=== PATIENT | female | born 1960 | race Caucasian/White ===

== ENCOUNTER → 2017-01-25 | Outpatient (CLI) | payer OTHER ==
[~2017-01-25] MED LIST: ALEVE220 MG PO; ASPIRIN LO-DOSE81 MG PO; CARDIZEM SR120 MG PO; COLACE100 MG PO; COZAAR50 MG PO; DILAUDID 2MG(HYD2 MG PO; DRISDOL 5050000 UNIT PO; FARXIGA10 MG PO; FLONASE 50 MCG/16 GM NOSE; GLUCAGON 1 MG PE1 MG SUB-Q; GLUCOPHAGE1000 MG PO; GLUCOSE4 GM PO; LEVEMIR FL100 UNIT/1 SUB-Q; LIDODERM1 EACH TRANS; LOPRESSOR25 MG PO; LOVENOX 6060 MG/0.6 SUB-Q; MEKINIST2 MG PO; MILK OF MA400 MG/5 M PO; MIRALAX17 GM PO; NORCO 5-325 TA1 EACH PO; NOVOLOG FL100 UNIT/1 SUB-Q; NYSTATIN100000 UNI PO; PROAMATINE5 MG PO; TAFINLAR75 MG PO; TESSALON PERLE100 MG PO; TOUJEO SOL300 UNIT/1 SUB-Q; TUMS REGULAR ST1 TAB PO; TYLENOL EXTRA500 MG PO; ULTRAM50 MG PO; VENTOLIN HFA18 GM INH; VICTOZA 3-0.6 MG/0.1 SUB-Q; VITAMIN D1000 UNIT PO; VITAMIN D10000 UNIT PO; XANAX0.25 M1 PO; XARELTO15 MG PO; ZANTAC300 MG PO; ZOCOR10 MG PO; ZOFRAN4 MG PO; ZYRTEC10 MG PO
== END | disposition disaster alternative care site (69) ==
LOC: LFPA 09:13
DX: E86.0 Dehydration (principal)

== ENCOUNTER 2017-02-05 17:00 | Inpatient (IN) | payer OTHER ==
[~2017-02-05] VITALS: Ht 160 cm; Wt 65.2 kg
--- NOTE | ~2017-02-05 | CON ---
PATIENT'S NAME: ILEANA JHAVERI [facility] AGE: 56 Y [address] ROOM: G3221 [place] [address] LOCATION: [facility] [place] ADMIT DATE: 02/05/2017 Consultation DISCHARGE DATE: FAMILY PHYSICIAN: ARTEM BELCHER MD ATTENDING PHYSICIAN: ORACIO BYNUM REFERRING PHYSICIAN: Dacia Orozco MD I was asked to evaluate the patient with imaging consistent with metastatic disease. HISTORY OF PRESENT ILLNESS: Ileana Jhaveri is a 56-year-old female, admitted on 02/05/2017 for further evaluation of a cough that has been going on for the last couple of months. It has been progressively getting worse. She has been feeling weaker and weaker and fatigued. She has had episodes with significant cough causing gag reflex at times and over the same course of time, she knows that she has lost 40 pounds. Her appetite is low and she generally does not feel well. She was admitted to the [facility] on 02/05/2017 and evaluation has included CT scan of the chest, abdomen, and pelvis, which was performed on 02/06/2017, which was remarkable for pulmonary embolism, it did not demonstrate that; however, it did show findings consistent with significant metastatic disease to the right cervical nodes, thoracic inlet, mediastinum, right lung base, liver, and periportal area. Additionally, there is a compound fracture of the upper thoracic vertebrae noted. As she has been on aspirin, a CT-guided biopsy of the liver was unable to be performed and plans are underway for radiologic-guided biopsy of the right cervical nodes, which will take place tomorrow. Currently, the patient states she is doing quite a bit better after being in the hospital a couple days. Cough persists, however, tolerable. Pain is located in the left arm at times. This comes and goes, sometimes it is quite bothersome. Otherwise, she feels she has chronic low back pain and knee pain that she does not feel is unusual. PAST MEDICAL HISTORY: Diabetes; hypertension; asthma; allergies; gastroesophageal reflux disease; history of melanoma, status post resection from the upper thorax followed by bilateral axillary sentinel lymph node biopsies in 1988, staging evaluation was not available on this. SOCIAL HISTORY: The patient lives in [place]. Does not drink, does not smoke, and does not do illicit drugs. 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 FAMILY HISTORY: PATIENT'S NAME: ILEANA JHAVERI [facility] AGE: 56 Y [address] ROOM: G[address]21 [place], [place] [address] LOCATION: [facility] [place] ADMIT DATE: 02/05/2017 Consultation DISCHARGE DATE: FAMILY PHYSICIAN: ARTEM BELCHER MD ATTENDING PHYSICIAN: ORACIO BYNUM The patient has a family history of diabetes and heart disease. MEDICATIONS: Please review the MAR. PHYSICAL EXAMINATION: VITAL SIGNS: Blood pressure 113/56, pulse 120, respirations 18, and temperature 98.4. GENERAL: The patient appears comfortable, in no apparent distress, sitting, eating supper with her significant other present. HEENT: Pupils are equal, round, and reactive to light. Extraocular muscles are intact. Oral mucosa moist and pink without erythema and without lesions. NECK: She is noted to have right supraclavicular adenopathy of 2 cm. No other cervical nodes are noted and no axillary nodes are noted. HEART: Regular rate and rhythm without murmurs or rubs or gallops. LUNGS: Clear to auscultation bilaterally without wheezing, without rhonchi. ABDOMEN: Bowel sounds positive. Nontender. Nondistended. No hepatosplenomegaly or masses appreciated. EXTREMITIES: Without cyanosis, clubbing, or edema. No significant bruising. LABORATORY DATA: CBC with a white blood cell count of 9, hemoglobin of 11, and platelets 288. Electrolytes were normal with a BUN and creatinine of 9 and 0.4 respectively. Albumin was 2.6, globulin 5.2, total bilirubin 0.4, alkaline phosphatase 166, AST of 19, and ALT of 23. Radiologic review included the CT as mentioned above. IMPRESSION AND PLAN: Ileana Jhaveri is a 56-year-old female with a history of melanoma, status post resection of sentinel node biopsies in 1998, now with findings concerning for metastatic disease diffusely; presenting with chronic cough, weight loss, weakness, and fatigue. She is scheduled for a CT of her image-guided biopsy tomorrow of the cervical nodes as the findings are very concerning and convincing for metastatic disease, very likely melanoma given her previous history, I will start obtaining an MRI of the brain to help completely stage her. Consideration in the future may include a bone scan as well as the patient does describe some left arm pain. Provided the patient is stable and able to be discharged, I will plan on following her up as an outpatient and review of pathology and discussion of treatment options based upon those results. If she has a prolonged stay for any reason, we will follow as an inpatient and provide further recommendations as they become apparent. PATIENT'S NAME: ILEANA JHAVERI [facility] AGE: 56 Y [address] ROOM: [place] [address] LOCATION: [facility] [place] ADMIT DATE: 02/05/2017 Consultation DISCHARGE DATE: FAMILY PHYSICIAN: ARTEM BELCHER MD ATTENDING PHYSICIAN: ORACIO BYNUM MD NJH/ricci /[id number] d: 02/08/17 0139 t: 03/03/17 1103, CONSULTATION REPORT
--- NOTE | ~2017-02-05 | ECHO ---
Transthoracic Echocardiography Report (TTE) Demographics Patient Name ILEANA JHAVERI Date of Study 02/06/2017 Patient Number [id number] Visit Number [id number] Date of 1960 Room Number G3221 Gender Female Number Age 56 year(s) Referring Gui Eaton MD Division Traffic Superintendent Fernanda Madrid, Physician RT,RVT,RDCS Physician Interpreting Bobby [employer] Conservation Representative Physician A Supervising Ordering Gui Eaton MD, MD/MLP Physician Nurse Stress [employer] Associate Conclusions Contractility Score Summary Normal Left Ventricular contractility was noted. Summary The estimated left ventricular ejection fraction is 60%. Pleural effusion present. Procedure Type of Study TTE procedure:2D Echocardiogram, M-Mode, Doppler , Color Doppler. Procedure Date Date: 02/06/2017 Start: 02:08 PM Study Location: Inpatient Portable Technical Quality: Adequate visualization Indications:Arrhythmia. Additional Indications:Atypical pneumonia. Appropriate Use Criteria: 9 Patient Status: Routine HR: 103 bpm BP: 113/60 mmHg M-Mode/2D Measurements LV Diastolic Dimension: 3.93 cm LV Systolic Dimension: 2.88 cm LV Septum Diastolic: 0.91 cm LV PW Diastolic: 1.01 cm AO Root Dimension: 2.9 cm Cardiac Output: 5.28 l/min AV Cusp Separation: 2 cm LVOT: 1.9 cm MV EPSS: 0.4 cm LVOT VTI: 18.1 cm LV Stroke volume: 51.29 ml Doppler Measurements AV Peak Velocity: 1.05 m/s MV Peak E-Wave: 0.67 m/s AV Peak Gradient: 4.41 mmHg MV Peak A-Wave: 0.73 m/s AV Mean Gradient: 2 mmHg MV E/A Ratio: 0.92 LVOT Peak Velocity: 0.99 m/s MV P1/2t: 52 msec TR Gradient:20.79 mmHg PV Peak Velocity: 0.94 m/s Estimated RAP:10 mmHg PV Peak Gradient: 3.51 mmHg Estimated RVSP: 31 mmHg Estimated PASP: 30.79 mmHg E' Septal Velocity: 0.07 m/s A' Septal Velocity: 0.09 m/s MV E/E' Ratio: 9.2 Findings Left Ventricle Normal left ventricle size and function. Right Ventricle Mildly dilated right ventricle. Normal right ventricular systolic performance. Left Atrium Normal left atrial size. Right Atrium Normal right atrial size. Mitral Valve Trivial mitral regurgitation by color Doppler. Tricuspid Valve Trivial tricuspid regurgitation by color Doppler. Pulmonic Valve Normal pulmonic valve structure and function. Pericardial Effusion No evidence of pericardial effusion. Miscellaneous Visualized portions of the aortic root and ascending aorta appear normal in size. Pleural Effusion Pleural effusion present. Contractility Score LV regional wall motion:(0-Non visualized 1-Normal 2-Hypokinesis 3-Akinesis 4-Dyskinesis 5-Aneurysm) Signature dtt: Honey Rosales dtd: 02/06/17 9444 Physician Self Edit
--- NOTE | ~2017-02-05 | DS ---
PATIENT'S NAME: ILEANA JHAVERI [facility] AGE: 56 Y [address] ROOM: [address] [place] [id number] LOCATION: [facility] [place] ADMIT DATE: 02/05/2017 Discharge Summary DISCHARGE DATE: 02/10/2017 FAMILY PHYSICIAN: Owen Pathak MD ATTENDING PHYSICIAN: Joe Gold ATTENDING PHYSICIAN: Yony Russo MD FINAL DIAGNOSES: 1. Metastatic melanoma. 2. Sinus tachycardia, resolved. 3. Diabetes mellitus. 4. Metastatic liver disease. 5. Right lung mass. 6. History of malignant melanoma. 7. Atypical pneumonia. 8. Moderate protein-calorie malnutrition. CONSULTATIONS: Hematology/Oncology, Dr. De Souza. PROCEDURES: Right cervical lymph node biopsy by Dr. Rowan. REASON FOR ADMISSION: This is a 56-year-old female who was transferred from Dr. Sen's office for a history of cough and repeated infections. The patient was evaluated in the ER and then further admitted to [facility]. Please see Dr. Gold's admission H and P for further details. DIAGNOSTIC STUDIES: The patient had tachycardia. A transthoracic echocardiogram was done and showed normal left ventricular contractility with ejection fraction of 60%. Pleural effusion was present. Serial Accu-Cheks were done and were in the range of 185 to 337. Cardiac enzymes were done. CPK was normal. Troponin I less than 0.04 x4. Serial CBCs were done and showed normal white count, hemoglobin, hematocrit, and platelet levels. BMP showed normal electrolytes and kidney function tests. Alkaline phosphatase was elevated at 166. Liver enzymes were normal. Hemoglobin A1c 9.4. PT/INR and PTT normal. Pre-albumin 7. Amylase 23, lipase 141. D-dimer elevated at 11.47. Chest x-ray was done on the day of admission for persistent cough and showed no acute process. A CT chest, abdomen, and pelvis with contrast was done to rule out PE and for history of weight loss. No evidence of pulmonary embolic disease was noted. Extensive neoplastic disease including the lower right neck, thoracic inlet, mediastinum, right lung base, liver, and periportal region was noted. Mild to moderate compression deformity involving the upper thoracic spine was detected. MRI brain with and without contrast was done to stage metastatic PATIENT'S NAME: ILEANA JHAVERI [facility] AGE: 56 Y [address] ROOM: [address] [address] LOCATION: [facility] [place] ADMIT DATE: 02/05/2017 Discharge Summary DISCHARGE DATE: 02/10/2017 FAMILY PHYSICIAN: Owen Pathak MD ATTENDING PHYSICIAN: Joe Gold and showed both essentially normal with no evidence of metastatic disease. On the day of discharge, a bone scan was done and official read is pending at this point of time. Legionella antigen in urine was negative. HOSPITAL COURSE: This is a 56-year-old female who presented with persistent cough. The patient was evaluated in clinic and then further transferred to [facility]. The patient was found to be tachycardic and also reported a 40-pound weight loss during this admission. D-dimer was done for tachycardia. She was initially placed on Levaquin for presumed atypical pneumonia. This was continued and finished, the patient finished her course of antibiotics. The patient underwent a CT chest, abdomen, and pelvis that showed that the patient had metastatic disease with mets to the lung, liver, and lymph nodes. She has a history of malignant melanoma in the past about 20 years ago. Hematology/Oncology consult was obtained for the patient. The patient was scheduled to undergo a liver biopsy, but she was receiving aspirin; hence, the liver biopsy could not be accomplished. The patient then underwent an ultrasound-guided right-sided lymph node biopsy. Pathology of the right-sided lymph node biopsy showed that the patient has metastatic melanoma. The Hematology/Oncology will follow up with the patient outpatient. The patient had sinus tachycardia during this admission as seen on EKG. Initially, she was on beta-tamra. This was later transitioned to calcium channel tamra, she was placed on Cardizem. By the time of discharge, the patient's heart rate was in the 90s with p.o. Cardizem. Her blood pressure was stable. She was ambulating with the help of a walker. She also had right- sided shoulder pain. To rule out bone mets, a bone scan was done and official read is pending. Later bone scan result revealed extensive osseous metastatic disease. The patient will follow up with her primary care physician, Dr. Pathak and Dr. De Souza for further recommendations of her metastatic disease. The patient continued to do well. She was tolerating p.o. She was ambulating with the help of a walker. She continued to do well and was discharged and asked to follow up with her primary care physician. DISCHARGE INSTRUCTIONS: The patient discharged on 1800-kilocalorie ADA diet. Activity is as tolerated. Use a walker for assistance. Follow up with Dr. Pathak on February 16, 2017. Follow up with pathology from biopsy report. Follow up with Dr. De Souza and Dr. Hartman at [facility] on february 20. PCP to check a CBC and a CMP. Regular BP check advised. PCP to follow biopsy result and bone scan result. Follow up with Hematology/Oncology. Accu-Cheks before meals and at bedtime. Advised to call PCP if blood sugar more than or equal to 400 on 2 occasions. PATIENT'S NAME: ILEANA JHAVERI [facility] AGE: 56 Y [address] ROOM: [place] [address] LOCATION: [facility] [place] ADMIT DATE: 02/05/2017 Discharge Summary DISCHARGE DATE: 02/10/2017 FAMILY PHYSICIAN: Owen Pathak MD ATTENDING PHYSICIAN: Joe Gold DISCHARGE MEDICATIONS: 1. Cardizem CD 120 mg p.o. daily, new medication. 2. Flonase 50 mcg per puff 1 spray nasally twice daily. 3. Toujeo insulin 23 units subcutaneous every day. 4. Cozaar 50 mg p.o. daily. 5. MiraLAX 17 g p.o. daily. 6. Simvastatin 10 mg p.o. daily. 7. Albuterol HFA inhaler 2 puffs inhalation every 6 hours p.r.n. dyspnea. 8. Tylenol 650 mg p.o. q.6 hours p.r.n. pain, total dose not to exceed 4000 mg per day. 9. Zyrtec 10 mg p.o. daily p.r.n. allergies. 10. Zofran 4 mg p.o. q.4 hours p.r.n. nausea. 11. Tramadol 50 mg p.o. q.4 hours p.r.n. pain. 12. Tessalon Perles 100 mg p.o. t.i.d. 13. Glucophage 1000 mg p.o. q.a.m. 14. Glucophage 1500 mg p.o. q.h.s. 15. Zantac 300 mg p.o. daily p.r.n. heartburn. 16. Aspirin 81 mg p.o. daily. 17. Glucose 16 g p.o. p.r.n. hypoglycemia. 18. Victoza 1.8 mg subcutaneous every day. 19. Vitamin D 69253 units p.o. every 7 days. 20. Farxiga 10 mg p.o. daily. 21. Vitamin D3 3000 units p.o. daily. 22. Glucagon 1 mg subcutaneous p.r.n. hypoglycemia. 23. [place] 5/325 mg 1-2 tabs p.o. q.4-6 hours p.r.n. pain. This patient was managed by hospitalists and Hematology/Oncology team during this admission. YONY RUSSO MD MT/modl /[id number] CC: Owen Pathak MD d: 02/10/17 2149 t: 02/11/17 1552, DISCHARGE SUMMARY
--- NOTE | ~2017-02-05 | HP ---
PATIENT'S NAME: ILEANA JHAVERI [facility] AGE: 56 Y [address] ROOM: [place] [address] LOCATION: [facility] [place] ADMIT DATE: 02/05/2017 History & Physical DISCHARGE DATE: FAMILY PHYSICIAN: ARTEM BELCHER MD ATTENDING PHYSICIAN: ORACIO BYNUM DATE OF SERVICE: CHIEF COMPLAINT: Cough, atypical pneumonia. HISTORY OF PRESENT ILLNESS: This is a 56-year-old female, who presents from her primary care physician's office, Dr. Sen. She has had multiple visits there over the past 2 months for chronic cough. The patient was seen again today for ongoing problems of which at this point her cough has gotten progressively worse. The patient during their evaluation was noted to be tachycardic and had a low-grade temperature of 100.4, and overall complaining of a generalized weakness and fatigue relating to this. The patient also today tells me that the cough has started to be productive and she is producing yellowish sputum occasionally. The patient also reports nausea and vomiting that have been ongoing over the past 2 weeks and her last such episode being 2 days ago. Denies any sick contacts or travel. Denies any subjective fever or chills. Also does not report any recent changes in her medications as well. Otherwise, denies shortness of breath, dizziness, lightheadedness, or palpitations. PAST MEDICAL HISTORY: 1. Type 2 diabetes. 2. Hypertension. 3. Asthma. 4. Seasonal allergies. 5. GERD. SOCIAL HISTORY: The patient lives at home by herself. Denies any history of smoking, alcohol, or drug use. FAMILY HISTORY: The patient has a history of diabetes and heart disease in her mother and grandmother. REVIEW OF SYSTEMS: All systems have been reviewed and were negative except as described in the HPI. PATIENT'S NAME: ILEANA JHAVERI [facility] AGE: 56 Y [address] ROOM: [place] [address] LOCATION: [facility] [place] ADMIT DATE: 02/05/2017 History & Physical DISCHARGE DATE: FAMILY PHYSICIAN: ARTEM BELCHER MD ATTENDING PHYSICIAN: ORACIO BYNUM PHYSICAL EXAMINATION: VITAL SIGNS: Blood pressure 114/76, heart rate 112, temperature 100.2, respiratory rate 14, and saturating 96% on room air. GENERAL: The patient is awake, alert, and oriented x3, in no acute distress. HEENT: Dry mucous membranes. No conjunctival pallor or scleral icterus noted. SKIN: Without rash or lesions. LUNGS: Diffuse mild wheezing, but no rales or rhonchi. HEART: S1, S2. Regular rate and rhythm. ABDOMEN: Soft, nontender, nondistended. Positive bowel sounds. NEURO: Grossly nonfocal. MUSCULOSKELETAL: No muscle tenderness or joint pain, redness, erythema noted. WORKUP: The patient had a chest x-ray done, which did not show any infiltrate. Had a white blood cell count of 10.9, but all other lab works are unremarkable. ASSESSMENT AND PLAN: 1. Atypical pneumonia: The patient is presenting with persistent cough with fever, tachycardia, and at this point, we will treat as atypical pneumonia. We will start her on Levaquin 750 mg daily. We will check for urine Legionella. 2. Systemic inflammatory response syndrome: Temperature of 100.2, heart rate 114. We will manage as possible for the explanation for presentation of pneumonia. 3. Type 2 diabetes: We will resume her home medications and monitor with sliding scale coverage. 4. Gastroesophageal reflux disease: The patient does have history of significant reflux disease; however, she is allergic to PPIs and takes Zantac as needed. Reflux disease might be contributing to chronic cough as well. 5. Seasonal allergies: The patient is to continue her home regimen including nasal sprays and Zyrtec. 6. Deep vein thrombosis prophylaxis: Will use sequential compression devices and ambulate. 7. Hypertension: We will continue her home medications and monitor. MD CANDIDO FARIAS/ricci PATIENT'S NAME: ILEANA JHAVERI [facility] AGE: 56 Y [address] ROOM: [place] [address] LOCATION: [facility] [place] ADMIT DATE: 02/05/2017 History & Physical DISCHARGE DATE: FAMILY PHYSICIAN: ARTEM BELCHER MD ATTENDING PHYSICIAN: ORACIO BYNUM /[id number] D: T: [id number] HISTORY & PHYSICAL
[2017-02-05] MEDS ORDERED: TESSALON PERLE100 MG PO (18:47)
[2017-02-05] MEDS ORDERED: LOPRESSOR25 MG PO (18:47)
[2017-02-05] MEDS ORDERED: COZAAR50 MG PO (18:47)
[2017-02-05] MEDS ORDERED: ZOFRAN4 MG PO (18:48)
[2017-02-05] MEDS ORDERED: ZANTAC300 MG PO (18:49)
[2017-02-05] MEDS ORDERED: GLUCOPHAGE1000 MG PO ×2 (18:49)
[2017-02-05] MEDS ORDERED: ALEVE220 MG PO (18:50)
[2017-02-05] MEDS ORDERED: ASPIRIN LO-DOSE81 MG PO (18:50)
[2017-02-05] MEDS ORDERED: FLONASE 50 MCG/16 GM NOSE (18:50)
[2017-02-05] MEDS ORDERED: GLUCOSE4 GM PO (18:50)
[2017-02-05] MEDS ORDERED: TOUJEO SOL300 UNIT/1 SUB-Q (18:51)
[2017-02-05] MEDS ORDERED: VICTOZA 3-0.6 MG/0.1 SUB-Q (18:52)
[2017-02-05] MEDS ORDERED: VENTOLIN HFA18 GM INH (18:53)
[2017-02-05] MEDS ORDERED: ZOCOR10 MG PO (18:53)
[2017-02-05] MEDS ORDERED: VITAMIN D10000 UNIT PO (18:53)
[2017-02-05] MEDS ORDERED: FARXIGA10 MG PO (18:54)
[2017-02-05] MEDS ORDERED: ZYRTEC10 MG PO (18:56)
[2017-02-05] MEDS ORDERED: VITAMIN D1000 UNIT PO (18:59)
[2017-02-06 13:52] LABS: CPK < 10 IU/L (21-215)
[2017-02-06 16:14] LABS: ALBUMIN 2.6 gm/dL (3.5-5.0); ALK PHOS 166 IU/L (33-138); ALT 23 IU/L (12-78); ANION GAP 15.1 (10.0-19.0); AST 19 IU/L (10-40); BLOOD UREA NITROGEN 13 mg/dL (6-24); CALCIUM 9.5 mg/dL (8.5-10.5); CHLORIDE 100 mMol/L (96-110); CO2 23 mMol/L (22-32); CREATININE 0.6 mg/dL (0.5-1.1); POTASSIUM 4.1 mMol/L (3.7-5.1); SODIUM 134 mMol/L (135-145); TOTAL BILIRUBIN 0.4 mg/dL (0.0-1.5); TOTAL PROTEIN 7.8 g/dL (6.0-8.4)
[2017-02-06 16:15] LABS: ESTIMATED GFR (MDRD EQUATION) > 60
[2017-02-06 18:32] LABS: CPK 13 IU/L (21-215)
[2017-02-06 23:50] LABS: CPK 11 IU/L (21-215)
[2017-02-07 05:38] LABS: PROTIME 11.6 SECONDS (9.8-11.4); PTT 29 SECONDS (25-32)
[2017-02-07 05:48] LABS: ANION GAP 13.8 (10.0-19.0); BLOOD UREA NITROGEN 9 mg/dL (6-24); CALCIUM 10.1 mg/dL (8.5-10.5); CHLORIDE 99 mMol/L (96-110); CO2 25 mMol/L (22-32); CREATININE 0.4 mg/dL (0.5-1.1); ESTIMATED GFR (MDRD EQUATION) > 60; POTASSIUM 3.8 mMol/L (3.7-5.1); SODIUM 134 mMol/L (135-145)
[2017-02-07 05:52] LABS: BASOPHIL % 0.4 %; EOSINOPHIL # 0.1 K/uL (0.0-0.5); EOSINOPHIL % 0.7 %; IMMATURE GRANULOCYTE # 0.2 K/uL (0.0-0.3); IMMATURE GRANULOCYTE % 2.2 %; LYMPHOCYTE # 1.8 K/uL (0.8-4.0); LYMPHOCYTE % 18.4 %; MCH 25.8 pg (27.0-34.0); MCHC 31.4 gm/dL (32.0-36.5); MONOCYTE # 0.9 K/uL (0.0-1.0); MONOCYTE % 9.8 %; MPV 10.1 fl (9.4-12.4); NEUTROPHIL # (ANC) 6.6 K/uL (1.8-7.8); NEUTROPHIL % 68.5 %; NRBC % 0 /100WBC (0-0.00); PLATELET COUNT 288 K/uL (150-450); RBC 4.27 M/uL (3.50-5.50); RDW-CV 14.4 % (11.9-14.6); WBC 9.6 K/uL (4.0-11.0)
[2017-02-08 05:02] LABS: BASOPHIL % 0.2 %; EOSINOPHIL % 0.4 %; HEMATOCRIT 32.7 % (33.0-46.0); HEMOGLOBIN 10.3 g/dL (10.0-15.0); IMMATURE GRANULOCYTE # 0.1 K/uL (0.0-0.3); IMMATURE GRANULOCYTE % 1.6 %; LYMPHOCYTE # 1.2 K/uL (0.8-4.0); LYMPHOCYTE % 15.1 %; MCHC 31.5 gm/dL (32.0-36.5); MCV 82.6 fl (83.0-98.0); MONOCYTE # 0.8 K/uL (0.0-1.0); MONOCYTE % 10.4 %; NEUTROPHIL # (ANC) 5.9 K/uL (1.8-7.8); NEUTROPHIL % 72.3 %; NRBC % 0 /100WBC (0-0.00); PLATELET COUNT 269 K/uL (150-450); RBC 3.96 M/uL (3.50-5.50); RDW-CV 14.2 % (11.9-14.6); WBC 8.1 K/uL (4.0-11.0)
[2017-02-08 05:08] LABS: INR - (THERAPEUTIC) 1.11 (0.92-1.07); PROTIME 11.7 SECONDS (9.8-11.4)
[2017-02-08 05:12] LABS: BLOOD UREA NITROGEN 13 mg/dL (6-24); CALCIUM 9.6 mg/dL (8.5-10.5); CHLORIDE 98 mMol/L (96-110); CO2 27 mMol/L (22-32); CREATININE 0.6 mg/dL (0.5-1.1); ESTIMATED GFR (MDRD EQUATION) > 60; SODIUM 134 mMol/L (135-145)
[2017-02-10] MEDS ORDERED: CARDIZEM SR120 MG PO (15:48)
[2017-02-10] MEDS ORDERED: MIRALAX17 GM PO (15:49)
[2017-02-10] MEDS ORDERED: ULTRAM50 MG PO (15:51)
[2017-02-10] MEDS ORDERED: GLUCAGON 1 MG PE1 MG SUB-Q (15:54)
[2017-02-10] MEDS ORDERED: NORCO 5-325 TA1 EACH PO (15:55)
== END 2017-02-10 17:00 | disposition disaster alternative care site (69) | DRG 988 ==
LOC: GMSU 17:02
PROVIDERS: Family Medicine; Nurse Practitioner Family; ADMIT Internal Medicine
PROC: 07B23ZX Excision of Left Neck Lymphatic, Percutaneous Approach, Diagnostic (ICD-10-PCS; principal; 2017-02-08)
DX: J18.9 Pneumonia, unspecified organism (principal); C77.0 Secondary and unspecified malignant neoplasm of lymph nodes of head, face and neck; C78.7 Secondary malignant neoplasm of liver and intrahepatic bile duct; E44.0 Moderate protein-calorie malnutrition; C79.51 Secondary malignant neoplasm of bone; E11.9 Type 2 diabetes mellitus without complications; K21.9 Gastro-esophageal reflux disease without esophagitis; I10 Essential (primary) hypertension; J45.909 Unspecified asthma, uncomplicated; R91.8 Other nonspecific abnormal finding of lung field; C80.1 Malignant (primary) neoplasm, unspecified; Z68.25 Body mass index [BMI] 25.0-25.9, adult; Z79.82 Long term (current) use of aspirin; Z85.820 Personal history of malignant melanoma of skin; Z83.3 Family history of diabetes mellitus; R00.0 Tachycardia, unspecified
CPT/HCPCS: A9503; A9577; J0780; J1650; J1956; J2405; J7050; Q0162; Q9967

== ENCOUNTER 2017-02-13 10:54 | Inpatient (IN) | payer OTHER ==
[~2017-02-13] VITALS: Ht 160 cm; Wt 64.3 kg
--- NOTE | ~2017-02-13 | HP ---
PATIENT'S NAME: ILEANA JHAVERI [facility] AGE: 56 Y [address] ROOM: [address] [place], [place] [address] LOCATION: [facility] ADMIT DATE: 02/13/2017 History & Physical DISCHARGE DATE: FAMILY PHYSICIAN: ARTEM BELCHER MD ATTENDING PHYSICIAN: DAKOTA DEAN DATE OF SERVICE: ADDENDUM: Attending's Note. HISTORY OF PRESENT ILLNESS: Ileana, a very pleasant 56-year-old unfortunate lady who was diagnosed with metastatic melanoma just about 1 week ago, also have a history of insulin- dependent diabetes, presented back to the emergency department with nausea, vomiting, and abdominal pain which started last night. Multiple episodes of nonbloody, non bilious emesis, without any fever. She did endorse having persistent cough since July. No chest pain, palpitations, or shortness of breath reported. She denied having any leg swelling. PHYSICAL EXAMINATION: VITAL SIGNS: Blood pressure was 150/76, 145, afebrile, 22. GENERAL: In mild acute distress due to nausea and vomiting. HEART: Sinus tachycardia, regular. No murmur, gallops, or rubs. LUNGS: Clear to auscultation bilaterally. ABDOMEN: Soft, nontender, nondistended. Bowel sounds present. Extremities: No clubbing, cyanosis, or edema. DIAGNOSTIC DATA: A CAT scan done in the emergency department showed a small right pulmonary embolism which is nonobstructive in the distal right main pulmonary artery. A CAT scan of the abdomen was also done, which did reveal a 4-cm long, nonoccluding thrombus in the inferior vena cava. Lab work did show evidence of diabetic ketoacidosis with hyperglycemia, ketones, and mild acidosis. ASSESSMENT AND PLAN: We are going to admit to the PCU and start the patient on insulin drip which is part of DKA protocol. She has already received 2 L of IV fluids. No signs of an infection noted at this point, and we will hold antibiotics at this point. Picture not consistent with sepsis. Noted the elevated procalcitonin which is of indeterminate significance in this cancer scenario. Heparin drip to be started for this acute thrombi. She can be switched to Lovenox in the morning or even tonight given better data for future prevention of pulmonary embolism. Discussion was held regarding code status and the patient is DNR and DNI. We will follow this patient. PATIENT'S NAME: ILEANA JHAVERI [facility] AGE: 56 Y [address] ROOM: [address] [place] [id number] LOCATION: [facility] ADMIT DATE: 02/13/2017 History & Physical DISCHARGE DATE: FAMILY PHYSICIAN: ARTEM BELCHER MD ATTENDING PHYSICIAN: DAKOTA DEAN URBANO FARLEY FOR DAKOTA DEAN MD ELOY/modl /[id number] D: [id number] T: [id number] HISTORY & PHYSICAL
--- NOTE | ~2017-02-13 | CON ---
PATIENT'S NAME: ILEANA JHAVERI [facility] AGE: 56 Y [address] ROOM: [id number] [place], [place] [address] LOCATION: [facility] [place] ADMIT DATE: 02/13/2017 Consultation DISCHARGE DATE: FAMILY PHYSICIAN: ARTEM BELCHER MD ATTENDING PHYSICIAN: DAKOTA DEAN REFERRING PHYSICIAN: Andrew Pablo MD HISTORY OF PRESENT ILLNESS: Dr. Pablo and Dr. Dean have requested that I provide an inpatient consultation on this 56-year-old female. I have been asked to evaluate and make treatment recommendations regarding her left hip pain. She has metastatic melanoma and has been noted to have a large metastatic lesion in the left proximal femur. Her left hip pain commenced insidiously in November. Pain was localized to the groin and peritrochanteric region with radiation to the ipsilateral knee. She was evaluated by her primary care physician in November and told that she had left hip arthritis. Her left hip pain persisted and progressed since then. Pain has progressed to the point where she is unable to bear weight on the left hip without severe pain. She is unable to transfer from her bed to a chair without severe pain. She has developed associated severe weakness in her left leg. She complains of low- grade pain in her right shoulder. She denies pain in her right hip. PAST MEDICAL HISTORY: Significant for yrq-ldrmkfn-naovfnyru diabetes mellitus (diagnosed 18 years ago) and melanoma at the posterior thorax (diagnosed and excised in 1998). She was believed to be curative for melanoma until recently. Recent medical difficulties commenced insidiously in July of 2016. She developed progressive lethargy between July and October. Associated difficulties with management of blood glucose levels were believed to be responsible for her lethargy. During that time, she was also afflicted by numerous "viral illnesses." She states, "My body just felt worn down." The symptoms progressed to the point where "I could not do anything" 5 years ago. She did not have enough energy to attend work. She transferred her medical care to Dr. Belcher earlier this month. At that time, she had developed a recalcitrant cough. Her lethargy had progressed to "exhaustion." She states, "I could not even hold my head up 2 weeks ago." She was hospitalized 2 weeks ago and readmitted 1 week ago. She has been diagnosed with metastatic melanoma. I have discussed her situation with her oncologist, Dr. Pablo. Dr. Pablo informs me that the patient's life expectancy is quite good (due to T-cell- mediated medical therapy capable of targeting melanoma, even with such widespread disease). PATIENT'S NAME: ILEANA JHAVERI [facility] AGE: 56 Y [address] ROOM: [place] [address] LOCATION: [facility] [place] ADMIT DATE: 02/13/2017 Consultation DISCHARGE DATE: FAMILY PHYSICIAN: ARTEM BELCHER MD ATTENDING PHYSICIAN: DAKOTA DEAN The patient's recent medical history is also significant for having been diagnosed with a pulmonary embolism last week. PRESENT MEDICATIONS AND ALLERGIES: As listed on the patient's chart (which I have completely reviewed). PHYSICAL EXAMINATION: GENERAL: Alert, oriented, well-hydrated, well-nourished, well-informed female. She is in no distress. VITAL SIGNS: Respirations are nonlabored. Respiratory rate 16. EXTREMITIES: Examination of the lower extremities demonstrate neutral alignment. There are no active skin lesions, masses, muscle atrophy, or peripheral edema. Quadriceps motor strength is 2/5. Tibialis anterior and gastrocnemius motor strength are both 2/5. 2+ dorsalis pedis pulse. There is tenderness at the peritrochanteric region, but there is no palpable mass. There is no pain or crepitation with gentle passive range of motion of the left hip. She is unable to actively flex the left hip because of pain and weakness. RADIOGRAPHS: Plain radiographs of the left hip demonstrate no lytic lesion, no joint space narrowing, no hardware, no soft tissue mass, and no fracture. MRI of the pelvis demonstrates a 2 cm lesion in the subtrochanteric region of the right femur. On the left hip, there is a lesion extending from the proximal aspect of the femoral neck to the proximal femoral diaphysis. There is no associated periprosthetic fracture, but there is extensive surrounding soft tissue edema (raising suspicion for a potential nondisplaced periprosthetic fracture versus soft tissue infiltration of the offending lesion). The patient is also noted to have widespread metastatic disease in her lumbar spine. IMPRESSION: Metastatic melanoma with widespread proximal femoral lesion at high risk for pathologic fracture. Small asymptomatic right proximal femoral metastasis (not presently at risk for fracture). PLAN: I have discussed operative and nonoperative options. I have discussed the relative risks, benefits, and limitations of internal fixation versus long- stem cemented hip arthroplasty. I have recommended prophylactic internal fixation. This is largely based upon Dr. Pablo's prognosis regarding the sensitivity of the lesion to medical therapy. We discussed technical aspects of surgery as well as risks and limitations PATIENT'S NAME: ILEANA JHAVERI [facility] AGE: 56 Y [address] ROOM: [id number] [place], [place] [address] LOCATION: [facility] [place] ADMIT DATE: 02/13/2017 Consultation DISCHARGE DATE: FAMILY PHYSICIAN: ARTEM BELCHER MD ATTENDING PHYSICIAN: DAKOTA DEAN. We have specifically discussed the potential for infection, neurovascular complications, deep venous thrombosis, pulmonary embolism, blood transfusion risks, as well as the potential for progression of the lesion and potential need for salvage with arthroplasty. She understands that she is at increased risk for thromboembolic disease (based upon her history thereof). All of her questions and concerns have been answered to her satisfaction. MD OSBALDO MCCALLW/modl /[id number] CC: MD Andrew Stevens MD d: 02/21/17829 t: 03/01/172035, CONSULTATION REPORT
--- NOTE | ~2017-02-13 | ER ---
PATIENT'S NAME: ILEANA JHAVERI [facility] AGE: 56 Y [address] ROOM: [place] [address] LOCATION: [facility] ADMIT DATE: 02/13/2017 ER/Outpatient Report DISCHARGE DATE: FAMILY PHYSICIAN: ARTEM BELCHER MD ATTENDING PHYSICIAN: DAKOTA DEAN CHIEF COMPLAINT: Nausea and vomiting. HISTORY OF PRESENT ILLNESS: The patient arrives by wheelchair from Dr. Belcher's clinic. There was concern that the patient may be a DKA. She has a history of type 2 diabetes. She was recently hospitalized and discharged home with minimal support. She has been getting worse throughout the weekend. Today, she has had significant nausea, vomiting, and weakness. Her blood sugars have been elevated. She denies any other fevers or chills. She denies any cough. No other acute findings. Dr. Belcher reports that the labs have been obtained except for a lactate and are concerning. He did initiate some fluids and transferred her here because her heart rate is elevated. She has no other concerns at this time. PAST MEDICAL HISTORY: Documented on the record and reviewed by me. SOCIAL HISTORY: Documented on the record and reviewed by me. MEDICATIONS: Documented on the record and reviewed by me. ALLERGIES: DOCUMENTED ON THE RECORD AND REVIEWED BY ME. REVIEW OF SYSTEMS: All systems were reviewed and negative except as noted in the HPI. PHYSICAL EXAMINATION: VITAL SIGNS: Blood pressure 170/79, pulse 125, respiratory rate is 16, temperature 96.6, SpO2 is 98% on room air. Pain is rated at 8/10. GENERAL: Age-appropriate female, resting on the exam table, in no acute pain or distress. NEURO: GCS is 15. No focal deficits. No asymmetry. HEENT: Normocephalic, atraumatic. Eyes are PERRL. Oropharynx is clear. NECK: Supple. Trachea is midline. HEART: Tachycardic. Regular rhythm with no obvious murmurs. PATIENT'S NAME: ILEANA JHAVERI [facility] AGE: 56 Y [address] ROOM: [place] [address] LOCATION: [facility] ADMIT DATE: 02/13/2017 ER/Outpatient Report DISCHARGE DATE: FAMILY PHYSICIAN: ARTEM BELCHER MD ATTENDING PHYSICIAN: DAKOTA DEAN LUNGS: Clear to auscultation bilateral in all lung haney. ABDOMEN: Soft, nontender, and nondistended. No rebound or guarding. BACK: Nontender to palpation throughout. No CVA tenderness. EXTREMITIES: Warm and well perfused. No focal areas of edema or erythema. No deformities. SKIN: Warm, dry, and intact. LABORATORY DATA AND X-RAYS: Chest x-ray without significant finding per my read. EKG revealed sinus tachycardia. No signs of acute ischemia. CT chest, abdomen, and pelvis with contrast reveals IVC clot and small right PE. Labs from prior to arrival were reviewed and repeated. Serum ketones is positive at 1 to 32. Procalcitonin is 26.29. LABS: CMS; sodium is 135, potassium 4.0, CO2 is 15, chloride is 102, BUN is 7, creatinine is 0.3, GFR is greater than 60. LFTs are notable for an elevated alkaline phosphatase at 244, elevated AST of 51. CK-MB and troponin are below detectable threshold. Serum glucose is 296. CRP is 14.5. Urinalysis with micro 2-5 whites, 0-2 rbc's, 5-10 epithelial cells, likely contaminated sample. CBC; WBC is 8.6, hemoglobin is 11.6, and platelets of 321. INR is 1.08. TSH and free T4 are 0.75 and 1.2 respectively. Lactate is 1.3. Blood gas; pH is 7.29, pCO2 is 30, pO2 is 65, bicarb is 14.4, likely venous gas. IMPRESSION: 1. Diabetic ketoacidosis with mild acidosis. 2. Right small pulmonary embolism. 3. Persistent tachycardia. EMERGENCY DEPARTMENT COURSE: The patient was seen and evaluated as above. Based on concerns from referring provider and nonfluid response condition despite 2 L bolus, the patient remained tachycardia, CTA of the abdomen and chest was obtained. The CT abdomen and pelvis was requested by the admitting team. The patient does have a small PE. Heparin will need to be initiated, however, her bed was ready for admission at that time and thus heparin was deferred until she arrived to the floor. She was started on an insulin drip secondary to her DKA with a large anion gap. Her elevated procalcitonin and CRP are concerning for infection, however, there is no clear source of infection and she does not meet SIRS criteria and thus she is not by definition septic. There is no evidence of severe end-organ dysfunction. She will need treatment for her PE in this setting, however. All questions were answered and the patient was admitted without further issue. CRITICAL CARE TIME: PATIENT'S NAME: ILEANA JHAVERI [facility] AGE: 56 Y [address] ROOM: [place] [address] [facility] ADMIT DATE: 02/13/2017 ER/Outpatient Report DISCHARGE DATE: FAMILY PHYSICIAN: ARTEM BELCHER MD ATTENDING PHYSICIAN: DAKOTA DEAN A 41 minutes of critical care time was spent on Ms. Jhaveri. I spent critical care time in discussion of the patient with referring and admitting providers, patient evaluation, patient re-evaluation, ordering and interpreting labs, EKG, chest x-ray, as well as ordering a PE protocol study. Ordering and interpreting blood gas and ordering fluids in addition to insulin drip for managing her blood sugar. The patient will be admitted with a critical care diagnosis of DKA as well as pulmonary embolism. MD HARMONY ANDRADE/modl /[id number] d: 02/15/17 1142 t: 02/21/17 0922, OUTPATIENT REPORT
--- NOTE | ~2017-02-13 | CON ---
PATIENT'S NAME: ILEANA JHAVERI [facility] AGE: 56 Y [address] ROOM: [place] [address] LOCATION: [facility] ADMIT DATE: 02/13/2017 Consultation DISCHARGE DATE: FAMILY PHYSICIAN: ARTEM BELCHER MD ATTENDING PHYSICIAN: DAKOTA DEAN REFERRING PHYSICIAN: Andrew Pablo MD A consult for Dr. Newman. HISTORY OF PRESENT ILLNESS: This is a 56-year-old lady. She is referred for rehab evaluation/GIRP evaluation, admitted on 02/05/2017 with chronic cough and progressively worse and weakness feeling throughout. Occasionally nauseated with no shortness of breath, no dizziness, no palpitation. Denied any chest pain. No lightheadedness. PAST MEDICAL HISTORY: Past history known for the followin. Diabetes type 2. 2. Hypertension. 3. Asthma. 4. Allergic rhinitis. 5. GERD. She was feeling progressively weaker and with cough that would not go away. She was evaluated for consistent left hip pain and x-ray demonstrated a lytic lesion in the left hip. MRI of pelvis shows a 2 cm lesion in the subtrochanteric region of the right femur, however, on the left hip there is a lesion from proximal part of the femoral neck to proximal part of the femoral diaphysis. No associated pain. Prostatic fracture with potential nondisplaced. Versus shaft of femoral infiltration. There is at the present time noted metastatic lesion in the lumbar spine and also compression metastatic fracture of the spine. PHYSICAL EXAMINATION: GENERAL: Alert and oriented x3. VITAL SIGNS: Blood pressure 110/62, temperature 99.1, pulse 98, respiration rate 19 to 22. She is 5 feet tall and weighs 96.3 kg. Able to comprehend, express without difficulty. She is on oxygen per nasal cannula and she can move all four except for left shoulder. At the present PATIENT'S NAME: ILEANA JHAVERI [facility] AGE: 56 Y [address] ROOM: [place] [address] LOCATION: [facility] ADMIT DATE: 02/13/2017 Consultation DISCHARGE DATE: FAMILY PHYSICIAN: ARTEM BELCHER MD ATTENDING PHYSICIAN: DAKOTA DEAN time, she is unable to move it because of pain of the shoulder. She is weak throughout at best at 3+. Can stand with help. She has good bowel and bladder control. Vitals are stable as I stated and she has poor appetite lately. MEDICATIONS: She is on the following medications: 1. Biotene. 2. Zofran. 3. Mucinex. 4. Tessalon. 5. Insulin. 6. Detemir. 7. Dilaudid. 8. Vitamin D3. 9. Dulcolax suppository. 10. Fleets. 11. Xanax. 12. Albuterol. 13. Pepcid. 14. Lovenox. 15. Aspirin. 16. Reglan. 17. Florastor. 18. ProAmatine. 19. MiraLAX. 20. Colace. 21. Insulin aspartate, mild scale. 22. MOM. 23. Tums. 24. Zocor. 25. Glucagon. 26. Glucose. 27. Dextrose. 28. Claritin. 29. Tylenol. 30. NaCl 0.9%. ASSESSMENT AND PLAN: At the present time, we will continue her on PT, OT, Speech, which have already been initiated. At this present time, I feel that she is still weak and would benefit from intensive rehabilitation of about maybe 2 weeks or so, aiming to discharge on modified independence. Please see my orders and renal case manager to follow on it if at all possible. If it is okay with the admitting PATIENT'S NAME: ILEANA JHAVERI [facility] AGE: 56 Y [address] ROOM: [place] [address] LOCATION: [facility] ADMIT DATE: 02/13/2017 Consultation DISCHARGE DATE: FAMILY PHYSICIAN: ARTEM BELCHER MD ATTENDING PHYSICIAN: DAKOTA DEAN surgeons, I would like to take her for intensive rehabilitation for about 2 weeks. Thank you for this referral. I did explain everything to her. She verbalized understanding and agreement. MD TREVOR SOLORIO/modl /[id number] d: 03/17/17 1533 t: 03/20/17 0834, CONSULTATION REPORT
--- NOTE | ~2017-02-13 | OR ---
PATIENT'S NAME: ILEANA JHAVERI [facility] AGE: 56 Y [address] ROOM: [place] [address] [facility] ADMIT DATE: 02/13/2017 OR/Procedure Report DISCHARGE DATE: FAMILY PHYSICIAN: ARTEM BELCHER MD ATTENDING PHYSICIAN: DAKOTA DEAN SURGEON: Sachin Lopez MD ENGINEER STEAM: DATE OF PROCEDURE: 02/22/2017 ADDENDUM: PREOPERATIVE DIAGNOSIS: Left nondisplaced pathological femoral neck fracture with metastatic lesions at the level of the femoral neck and femoral shaft. POSTOPERATIVE DIAGNOSIS: Left nondisplaced pathological femoral neck fracture with metastatic lesions at the level of the femoral neck and femoral shaft. MD ARMAND ESCALONAD/modl /[id number] d: 03/14/17 1358 t: 03/15/17 0822, OPERATIVE SUMMARY
--- NOTE | ~2017-02-13 | OR ---
PATIENT'S NAME: ILEANA JHAVERI [facility] AGE: 56 Y [address] ROOM: [place] [address] LOCATION: [facility] [place] ADMIT DATE: 02/13/2017 OR/Procedure Report DISCHARGE DATE: FAMILY PHYSICIAN: ARTEM BELCHER MD ATTENDING PHYSICIAN: DAKOTA DEAN SURGEON: Kendall Johnson MD COTTON ROLL PACKER: None. DATE OF PROCEDURE: 02/22/2017 POSTOPERATIVE DIAGNOSIS: Left nondisplaced femoral neck fracture with metastatic lesions at the level of the femoral neck and femoral shaft. POSTOPERATIVE DIAGNOSIS: Left nondisplaced femoral neck fracture with metastatic lesions at the level of the femoral neck and femoral shaft. PROCEDURE: 1. Left long femoral intramedullary nailing. 2. Use of intraoperative fluoroscopy, less than 1 hour. ANESTHESIA: Peripheral nerve block and sedation. FLUIDS: See Anesthesia report. ESTIMATED BLOOD LOSS: Less than 100. SPECIMEN: Left femoral neck and shaft bony reamings. COMPLICATIONS: None. DISPOSITION: Stable in PACU. COUNTS: All counts correct. IMPLANTS: Synthes left TFN-A 360 mm long 12 mm diameter femoral intramedullary nail with proximal compression screw and 2 distal interlocking screws. INDICATIONS: Ms. Jhaveri is a pleasant 56-year-old female who underwent the noted procedures above. The risks, benefits, and alternatives of pursuing a surgical intervention were discussed with the patient in detail. I marked the patient's left lower extremity indicating the correct surgical site. Anesthesia was consulted for their perioperative evaluation of the patient. DESCRIPTION OF PROCEDURE: The patient was taken from the holding area to the operating room. A time-out was performed. She was placed on the Sandy table. PATIENT'S NAME: ILEANA JHAVERI [facility] AGE: 56 Y [address] ROOM: [address] [address] LOCATION: [facility] [place] ADMIT DATE: 02/13/2017 OR/Procedure Report DISCHARGE DATE: FAMILY PHYSICIAN: ARTEM BELCHER MD ATTENDING PHYSICIAN: DAKOTA DEAN Anesthesia had placed their nerve blocks preoperatively, and Ancef antibiotic was administered for perioperative prophylaxis. A final time-out was performed. I turned my attention to the left. I began with a guide pin at the level of the greater trochanter. I made a surgical incision 3 fingerbreadths proximal to the tip of the greater trochanter. I introduced intraoperative fluoroscopy and confirmed the center-center position of the pin at the greater trochanter. I then used the opening reamer to open the intramedullary canal. I used a long ball-tip guidewire to place down the femoral shaft. I confirmed the position of the pin fluoroscopically. I then sequentially reamed up to a 13.[address] a size 12 diameter 360 mm in length nail. I then drilled for, measured, and placed my lag screw into the femoral head. The bony reamings from the reaming into the femoral head and neck were sent for specimen as there appeared to be a metastatic lesion in the femoral neck. I confirmed the position of the lag screw fluoroscopically and achieved a center-center position in the femoral head and neck. I turned my attention to the distal femur. Using perfect circles technique, I placed 2 distal interlocking screws by making an incision fluoroscopically, dissecting down to bone drilling for, measuring, and tightening the screws. Final fluoroscopic images revealed evidence of a successful left femoral intramedullary nailing procedure. All the surgical incisions were copiously irrigated with a normal sterile saline solution and then the incisions were closed in layers. [place] were used to approximate the skin. Sterile Mepilex dressings were placed at the incision sites. The patient was then transferred from the Sandy table onto the stretcher. She was brought to the recovery room in stable condition. There were no intraoperative complications noted. IMPRESSION: The patient is status post the noted procedures above. PLAN: The patient will be weightbearing as tolerated in the left lower extremity. Physical Therapy and Occupational Therapy will be consulted for early ambulation and prevention of deconditioning. The Hospitalist team will continue to manage the patient's concomitant medical comorbidities. Postoperative antibiotics will be administered per routine. Dressing changes of the left hip and femur will be changed as needed. DVT prophylaxis may be in the form of Lovenox per the hospitalist. I will continue to monitor the patient closely in the postoperative period. PATIENT'S NAME: ILEANA JHAVERI [facility] AGE: 56 Y [address] ROOM: [address] [address] LOCATION: [facility] [place] ADMIT DATE: 02/13/2017 OR/Procedure Report DISCHARGE DATE: FAMILY PHYSICIAN: ARTEM BELCHER MD ATTENDING PHYSICIAN: DAKOTA DEAN KENDALL C MD ABY JOHNSON/ricci /[id number] d: 02/22/17 2248 t: 02/27/17 1254, OPERATIVE SUMMARY
--- NOTE | ~2017-02-13 | CON ---
PATIENT'S NAME: ILEANA JHAVERI [facility] AGE: 56 Y [address] ROOM: [id number] [place], [place] [address] LOCATION: GPCU ADMIT DATE: 02/13/2017 Consultation DISCHARGE DATE: FAMILY PHYSICIAN: ARTEM BELCHER MD ATTENDING PHYSICIAN: DAKOTA DEAN DATE OF CONSULTATION: 02/14/2017 REFERRING PHYSICIAN: Andrew Pablo MD PALLIATIVE MEDICINE CONSULT LOCATION: PCU Room 6339. REFERRING PROVIDER: Artem Belcher MD CHIEF COMPLAINT: Palliative care referral for goals of care, and patient and family support. HISTORY OF PRESENT ILLNESS: The patient is a 56-year-old female, who was recently diagnosed with metastatic melanoma during a hospital stay from February 05 through . The patient was to followed up with Oncology on February 20 for an initial visit, but following discharge home, the patient had been experiencing nausea, vomiting, and abdominal pain, as well as poor appetite and increasing weakness. She did have a fall at home prior to presenting to [facility]. At the clinic, she was given a liter of fluid as though it was felt that she was dehydrated. Her lab studies were reviewed, and she was found to have a blood sugar of 374, and the patient was also noted to be tachycardic, and it was felt that as though she should be evaluated in the ER and admitted under the hospitalist services. The patient reports that she has had increasing right shoulder pain, that radiates down her back to her waist, as well as left hip and thigh pain, which have been getting worse in the last 1- 1/2 to 2 weeks. At home, she was using Tylenol and Ultram, which when used [id number]-[id number] was barely holding her over for pain. At the time of my initial visit, she reported pain was an 8/10. With IV Dilaudid, this did bring it down to a 4 to 5 out of 10. She does report that her nausea is better since admission. Her appetite has slightly improved but remains poor. She reports her last bowel movement was 3 to 4 days ago. The patient also reports that during the night, she noticed that her left leg was starting to feel weak. She noticed decreased movement, and then today, she noted that her left arm was weaker, which is reported to be new for her. No slurred speech or facial droop. The patient denies any headaches. No chest pain. No shortness of breath. She reports that when she fell at home, she did not PATIENT'S NAME: ILEANA JHAVERI [facility] AGE: 56 Y [address] ROOM: [facility] [place] [address] LOCATION: GPCU ADMIT DATE: 02/13/2017 Consultation DISCHARGE DATE: FAMILY PHYSICIAN: ARTEM BELCHER MD ATTENDING PHYSICIAN: DAKOTA DEAN sustain any injuries or have any increased pain at that time though she does report overall her pain seems to be worse today from yesterday. She reports that she has not been sleeping well at home lately. She reports a moderate to severe level of fatigue and reports that she feels "a little depressed." She also has some neuropathy, this is not new or changed. PREVIOUS OPERATIONS: 1. Tonsillectomy. 2. Melanoma removed from her back in 1998. 3. D and C from miscarriage. 4. During her last hospitalization underwent a lymph node biopsy. PAST MEDICAL HISTORY: 1. Diabetes mellitus type 2. 2. Hypertension. 3. GERD. 4. Metastatic melanoma. MEDICATIONS: Please see current MAR. ALLERGIES: CODEINE AND PROTONIX. SOCIAL HISTORY: The patient is but lives alone here in [place]. She reports she has been from her for 4 years, but he is still somewhat involved. She has 7 children, 2 of his, 2 of hers, and 3 together. No history of tobacco or alcohol use. FAMILY HISTORY: Her mother of heart disease at the age of 78. Does not know her father's medical history. She had a brother with colorectal cancer. REVIEW OF SYSTEMS: All systems were reviewed and are negative except as noted in the HPI. PHYSICAL EXAMINATION: VITAL SIGNS: Blood pressure 137/65, heart rate 103, temperature 98.2, respirations 16, O2 saturation 93% on room air. GENERAL: Reveals an alert and oriented, middle-aged white female, who is lying in the hospital bed, is not appeared in any acute distress. HEENT: Normocephalic and atraumatic. Pupils are equal and reactive to light. Sclerae anicteric. Conjunctivae pink. Tongue and mucous membranes are moist and pink. Dentition is adequate. PATIENT'S NAME: ILEANA JHAVERI [facility] AGE: 56 Y [address] ROOM: [id number] [place], [place] [address] LOCATION: GPCU ADMIT DATE: 02/13/2017 Consultation DISCHARGE DATE: FAMILY PHYSICIAN: ARTEM BELCHER MD ATTENDING PHYSICIAN: DAKOTA DEAN CARDIOVASCULAR: Heart tones regular rate and rhythm. She is tachycardic. No murmur. RESPIRATORY: Respirations are regular, nonlabored. Lung sounds are clear to auscultation bilaterally. GASTROINTESTINAL: Abdomen is soft, nontender. Bowel sounds are present. MUSCULOSKELETAL: No significant joint deformity. There is no clubbing, cyanosis, or edema. SKIN: Warm and dry. No unusual lesions or rashes. Does have a surgical scar to her back. NEUROLOGICAL: Does have decreased movement to left upper and lower extremity, weaker on left than right, does have gross and fine motor movement. PSYCHIATRIC: Displays appropriate mood and affect to the situation. IMPRESSION AND PLAN: 1. Left arm and leg weakness. This was discussed with nursing staff and hospitalist services. 2. Right shoulder and left hip and thigh pain. The patient has p.r.n. IV Dilaudid available, which gives her fairly decent relief. We will continue to monitor and adjust as needed. 3. Nausea. The patient reports that this has improved for the most part since hospitalization. 4. Emotional distress. Long supportive visit with the patient. 5. Code status. The patient does report wanting to be a DNR/DNI. She does not have an advanced directive or a living well. Discussed at length with the patient, [id number] paperwork and living will paperwork. At this point, the patient does not want her to be power of deputy prosecuting attorney. She reports that she would want her jwaokhvs-up-tcp, Rachele, to make healthcare decisions for her if she is no longer able to. She does report that she is interested in completing this paperwork during this hospital stay, but at this point will also think about things a little bit more. Provided a long emotional support visit. Discussed her level of family support or lack thereof. The patient reports that her is not a strong support system for her, though he does tell providers that he is. The patient reports that she is afraid to go home as she does not want to be left alone. I spent good amount of time discussing various options as far as possibly short senior living stay versus having her children staying with her versus going to live with one of her children. The patient does also express concerns about her job, finances, and how she is going to continue to care insurance for both herself and her . She reports she does not have long-term care insurance. I did pass these concerns onto Marjan with Care Management. I did also offer to hold a family meeting to help get all of her children and on the same page. At this point, we are still waiting for Oncology's input. We will continue to follow for emotional support and to assist with pain management as needed. PATIENT'S NAME: ILEANA JHAVERI [facility] AGE: 56 Y [address] ROOM: [place] [address] LOCATION: GPCU ADMIT DATE: 02/13/2017 Consultation DISCHARGE DATE: FAMILY PHYSICIAN: ARTEM BELCHER MD ATTENDING PHYSICIAN: DAKOTA DEAN A Total visit was 75 minutes. Greater than 50% of this time was spent providing education, counseling, and emotional support. Thank you for allowing me to assist the patient and her family. REYMUNDO PIERRE NP FOR MD TJ MCQUEEN/modl /[id number] CC: Artem Belcher MD d: 02/16/17 2329 t: 03/23/17 1228, CONSULTATION REPORT
--- NOTE | ~2017-02-13 | CON ---
PATIENT'S NAME: ILEANA JHAVERI [facility] AGE: 56 Y [address] ROOM: [address] [place], [place] [address] LOCATION: GPCU ADMIT DATE: 02/13/2017 Consultation DISCHARGE DATE: FAMILY PHYSICIAN: ARTEM BELCHER MD ATTENDING PHYSICIAN: DAKOTA DEAN DATE OF CONSULTATION: 03/05/2017 REFERRING PHYSICIAN: Rafa Del Rosario MD REASON FOR CONSULT: Groin rash. HISTORY OF PRESENT ILLNESS: This is a 56-year-old female patient who was admitted to [facility] with nausea and vomiting. She has a significant history of disseminated melanoma, type 2 diabetes mellitus, GERD, and hypertension. She reports she had a Forrest catheter in place during her hospitalization, but it was recently removed, and she believes that is when the groin rash occurred. She denies pruritus. She does endorse slight pain to the site. She admits to having yeast and fungal rashes in the past. She reports she currently takes probiotic therapy. She denies further skin issues and is unwilling to have me look at her buttocks at this time. She denies fevers or chills. She denies syncopal episodes. She denies chest pain. No shortness of breath noted. She has no other complaints regarding her skin at this time. PAST MEDICAL HISTORY: Disseminated metastatic melanoma, type 2 diabetes mellitus, hypertension, and GERD. PAST SURGICAL HISTORY: Tonsillectomy, D and C for miscarriage, lymph node biopsy, and melanoma removed from back in 1998. FAMILY HISTORY: Positive for heart disease. SOCIAL HISTORY: The patient lives in [place]. She denies tobacco or alcohol use. ALLERGIES: PROTONIX AND CODEINE. PATIENT'S NAME: ILEANA JHAVERI [facility] AGE: 56 Y [address] ROOM: [address] [place], [place] [address] LOCATION: GPCU ADMIT DATE: 02/13/2017 Consultation DISCHARGE DATE: FAMILY PHYSICIAN: ARTEM BELCHER MD ATTENDING PHYSICIAN: DAKOTA DEAN CURRENT MEDICATIONS: Please refer to the medication administration record. REVIEW OF SYSTEMS: Pertinent positives addressing in the HPI and all the rest are negative. PHYSICAL EXAMINATION: VITAL SIGNS: Temperature 97.6, pulse 80, respirations 14, blood pressure 104/58, and pulse oximetry 94% on room air. Height 5 feet 3 inches and weight 62.0 kg. GENERAL: The patient is alert and oriented x3. Pale. HEENT: Oral mucosa intact. NECK: Supple. NEUROLOGICAL: Grossly nonfocal. MUSCULOSKELETAL: Able to wiggle toes. EXTREMITIES: +2 pedal pulses. Heels intact. No lower leg skin issues noted. Capillary refill intact. SKIN: To the patient's right medial upper thigh, she has a 5 cm width x 5 cm length red rash with satellite lesions. Slight skin peeling noted, but no active open sores or pustules. She has a similar presentation to her left inner upper thigh, but the area is significantly smaller. No drainage. The patient denies further skin issues and is not willing to re-position so I can visualize her buttocks. LABORATORY DATA: Hemoglobin is 7.9. Sodium 133, potassium 4.2, chloride 98, bicarbonate 28, BUN 9, creatinine 0.3, and glucose 90. White blood cell count 10.4, platelets 186, and hematocrit 24.7. ASSESSMENT AND PLAN: Again, this is a 56-year-old female patient who was admitted to [facility] with nausea and vomiting. Wound care consult to treat a right inner thigh rash. Candidiasis groin/inner thigh rash. Relatively minor with no open lesions. We will treat with nystatin topical ointment t.i.d. x10 days. I instructed the patient on proper hygiene and to keep the site clean and dry. The patient declined buttocks visualization. We will continue to follow. Educated the patient on the importance of pressure ulcer prevention. No further assistance with skin anticipated at this time. I would like to thank Dr. Del Rosario for this consult. PATIENT'S NAME: ILEANA JHAVERI [facility] AGE: 56 Y [address] ROOM: [id number] [place] [id number] [facility] AD[facility] DATE: 02/13/2017 Consultation DISCHARGE DATE: FAMILY PHYSICIAN: ARTEM BELCHER MD ATTENDING PHYSICIAN: DAKOTA DEAN DINA ROBERTS APRN FOR MD ROZINA ALLISON/ricci /[id number] d: 03/05/17 1322 t: 03/28/17 1628, CONSULTATION REPORT
--- NOTE | ~2017-02-13 | CON ---
PATIENT'S NAME: ILEANA JHAVERI [facility] AGE: 56 Y [address] ROOM: [address] [address] LOCATION: GICU ADMIT DATE: 02/13/2017 Consultation DISCHARGE DATE: FAMILY PHYSICIAN: ARTEM BELCHER MD ATTENDING PHYSICIAN: DAKOTA DEAN REFERRING PHYSICIAN: Andrew Pablo MD HISTORY OF PRESENT ILLNESS: This is a 56-year-old female who was seen in consultation for anemia. She was diagnosed to have metastatic melanoma on 02/05/2017 hospitalization, and she was followed up by Oncology on 02/20/2017. The patient has been experiencing a lot of nausea, vomiting, abdominal pain, poor appetite, and increasing weakness. She also experienced severe pain in the left hip. 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 Subsequently, she went through femoral intramedullary nailing. There was no significant blood loss during the procedure. She is anemic with a hemoglobin of 7.1 g. She also had a fall at home prior to this surgery. She is little diabetic, insulin-dependent. Her hemoglobin was 11 g on 02/07/2017 and has gradually come down to 7.1. She also is on pressors to keep her blood pressure up, as her blood pressure stays low. PAST SURGICAL HISTORY: Previous operations include: 1. Tonsillectomy. 2. Melanoma removal from her back in 1998. 3. D and C, miscarriage. 4. During last hospitalization underwent lymph node biopsy. PAST MEDICAL HISTORY: 1. Diabetes mellitus type 2. 2. Hypertension. 3. Gastroesophageal reflux disease. 4. Metastatic melanoma. The patient's additional problems also include arterial hypertension, benign postural vertigo, and palpitations. MEDICATIONS: As per MAR, reconciled. She is on vancomycin and had injection on 02/25/2017 and piperacillin-tazobactam, levofloxacin, famotidine, dexamethasone, calcium supplements, Zofran and heparin. PERSONAL HISTORY: She denies alcohol and smoking. FAMILY HISTORY: Maternal grandmother had a melanoma on the face, arm, and leg and she had PATIENT'S NAME: ILEANA JHAVERI [facility] AGE: 56 Y [address] ROOM: [address] [address] LOCATION: [facility] ADMIT DATE: 02/13/2017 Consultation DISCHARGE DATE: FAMILY PHYSICIAN: ARTEM BELCHER MD ATTENDING PHYSICIAN: DAKOTA DEAN carotid surgery. PHYSICAL EXAMINATION: GENERAL: Reveals a well-developed female, who is not in acute discomfort. VITAL SIGNS: Blood pressure is 92/56 on one pressor, pulse is 92 per minute, respirations 18 per minute, temperature is 98.4 degrees Fahrenheit. HEAD: Normocephalic, atraumatic. NECK: Supple. No lymphadenopathy. CHEST: Clear to palpation, percussion, and auscultation. CARDIAC: Both heart sounds normal. No S3, no murmur. ABDOMEN: Soft, is nontender. There is no hepatosplenomegaly. No ascites. Bowel sounds are active. MUSCULOSKELETAL: She moves her right leg and upper extremities without pain. She has a painful movement of the left leg due to surgery. LABORATORY DATA: Shows hemoglobin as mentioned above is 7.1 g, it was 7.6 and 7.9 on 02/23/2017 and 02/24/2017 respectively. D-dimer is 11.47. PT is 11.4, and INR is 1.08. Her PO2 is 65, pCO2 is 30, pH is 7.29, potassium is 3.6. Sodium 136, calcium 8.3, LDH 1515, alkaline phosphatase 165. CRP is 14.5. ASSESSMENT AND PLAN: 1. This lady has anemia with high LDH and alkaline phosphatase, which may be related to her recent surgery. However, she is to be evaluated for megaloblastic anemia and for hemolysis. 2. She did not pass any stools and we do not know whether she had melenic stools or not, given her milk of magnesia and check stools for culture and occult blood. 3. We will evaluate her for GI bleeding and proceed with upper GI endoscopy and colonoscopy on Sunday. She will be prepared Sunday. Risk and benefits were explained to the patient and discussed with her and she is willing to go through this. Last colonoscopy was about 5 years ago, which she stated was negative. I appreciate sharing care of this patient. ANWAAR NICE, MD [place]/ricci /[id number] d: 02/26/17 1548 t: 02/27/17 1514, CONSULTATION REPORT
--- NOTE | ~2017-02-13 | CON ---
PATIENT'S NAME: ILEANA JHAVERI [facility] AGE: 56 Y [address] ROOM: [place] [address] [facility] AD[facility] DATE: 02/13/2017 Consultation DISCHARGE DATE: FAMILY PHYSICIAN: ARTEM BELCHER MD ATTENDING PHYSICIAN: DAKOTA DEAN DATE OF CONSULTATION: 03/09/2017 REFERRING PHYSICIAN: Andrew Pablo MD CONSULTATION NOTE REASON FOR CONSULTATION: Depression. HISTORY OF PRESENT ILLNESS: The patient is a 56-year-old female with a history of metastatic malignant melanoma, who presents to the hospital with sepsis and diabetic ketoacidosis. She is seen today in her room and is cooperative with the interview. The patient reports a history of recurrent depression for several years. She states that this current episode started several weeks ago. She does not identify any triggers, but states that she has been stressed by her physical health, her job, and her 's lack of support, and understanding of what she has been going through. She reports that she feels sad nearly all day and has difficulty falling and staying asleep. Her appetite is poor, although she has not noted any weight changes. She reports reduced energy and motivation. She feels hopeless sometimes, but states that overall she believes that things would get better. The patient reports normal concentration and has no psychomotor agitation or retardation. She denies anhedonia and has no thoughts of dying. She endorses low self esteem, but has no feelings of worthlessness or guilt. The patient reports increased anxiety, especially related to her current situation, but she denies panic attacks, phobias, obsessions, or compulsions. She has no history of manic or hypomanic episodes and denies psychotic symptoms. PAST PSYCHIATRIC HISTORY: The patient denies prior psychiatric hospitalization and has no history of self-harm or suicide attempts. She does not recall being on medications for depression, but had therapy in the past which she states was very helpful. PAST MEDICAL HISTORY: 1. Metastatic malignant melanoma. 2. Sepsis. 3. Diabetic ketoacidosis. 4. Type 2 diabetes. 5. Hypertension. PATIENT'S NAME: ILEANA JHAVERI [facility] AGE: 56 Y [address] ROOM: [place] [address] LOCATION: GPCU ADMIT DATE: 02/13/2017 Consultation DISCHARGE DATE: FAMILY PHYSICIAN: ARTEM BELCHER MD ATTENDING PHYSICIAN: DAKOTA DEAN 6. GERD. 7. DVT. 8. Cardiac arrhythmias. MEDICATIONS: See medication list. ALLERGIES: ACETAMINOPHEN, CODEINE, AND PANTOPRAZOLE. REVIEW OF SYSTEMS: Ten systems reviewed and all others negative, except as noted in the history. PAST FAMILY AND SOCIAL HISTORY: The patient is and has seven adult children. She denies a history of childhood abuse or trauma. She did not complete high school, but has a GED. She is currently employed. She lives in [place] with her . The patient denies current legal problems and denies alcohol, tobacco, or illicit drug use. She is unaware of any history of mental illness in the family. MENTAL STATUS EXAMINATION: The patient is in bed. She is pleasant and cooperative with the interview. She makes good eye contact. She has a normal psychomotor activity. Her speech is normal in rate and volume. She describes her mood as depressed and anxious. Her affect is reactive and spontaneous. Her thoughts are logical and goal directed. She denies suicidal, homicidal, or violent ideations. She denies hallucinations and has no delusions. She is alert and oriented to time, person, and place. Her concentration and memory are normal. Her language is intact. Her intelligence is average. Her insight and judgment are good. DIAGNOSES: 1. Major depressive disorder, recurrent, moderate. 2. Partner relational problem. PLAN: Discussed assessment and explored treatment options with the patient that included medications and psychotherapy. The patient opted for psychotherapy at this time, and would consider medications if nothing changes. Recommend scheduling outpatient individual and family therapy, once patient is medically stable. Thank you for your consult. PATIENT'S NAME: ILEANA JHAVERI [facility] AGE: 56 Y [address] ROOM: [address] [place], [place] [address] [facility] AD[facility] DATE: 02/13/2017 Consultation DISCHARGE DATE: FAMILY PHYSICIAN: ARTEM BELCHER MD ATTENDING PHYSICIAN: DAKOTA DEAN MD FERNANDO SPAIN/ricci /[id number] d: 03/09/17 1646 t: 03/12/17 0824, CONSULTATION REPORT
--- NOTE | ~2017-02-13 | HP ---
PATIENT'S NAME: ILEANA JHAVERI [facility] AGE: 56 Y [address] ROOM: [id number] [place], [place] [address] LOCATION: GPCU ADMIT DATE: 02/13/2017 History & Physical DISCHARGE DATE: FAMILY PHYSICIAN: ARTEM BELCHER MD ATTENDING PHYSICIAN: DAKOTA DEAN DATE OF SERVICE: 02/13/2017 CHIEF COMPLAINT: Nausea and vomiting. HISTORY OF PRESENT ILLNESS: The patient is a 56-year-old female, well known to this service. She was recently discharged on 02/11/2017. The patient states that the first day at home, she felt relatively well. On Sunday, she did have a little upset stomach and did have some vomiting after eating. On Sunday, she was able to keep her noon meal down. She ate bites of a hamburger, and then on Sunday night, she did eat some chicken strips and was able to keep them down until about 3 hours later when she had emesis consisting of undigested food from noon and supper. The patient presented to Dr. Belcher's office today. He felt that she was slightly dehydrated and gave her a liter of fluids. After reviewing her laboratory studies done at the office, she did have a blood sugar of 374, and it was felt that the patient should be evaluated in the emergency room. The patient continued to be tachycardiac in the 120s to 130s as per her recent hospitalization. The patient had been checking her blood sugars 4 times daily. They were all ranging in the 300 to 350 range. She had been taking her medications as prescribed. She denies any cough, shortness of breath, or hemoptysis. She denies any syncopal episodes, headache, or lightheadedness. She denies any chest pain. No shortness of breath. The patient did have abdominal pain along with the nausea and vomiting. [place] that it encompassed her entire abdomen. She does have some back pain, which she related to chronic pain. She did have a fall on Sunday night. She did not sustain any injury. She just felt like her legs gave way, but she has not had any increased back pain. No head trauma or loss of consciousness. The patient was able to just lower herself to the ground. The patient's appetite prior to admission has been poor. She notes that her bowel movements have been few and far between. She did have a firm solid bowel movement that she states was darker in color than usual on Sunday. The patient denies any paresthesias or weakness in her upper extremities. She does note that she has to be careful when she walks because of weakness in her lower extremities. It was felt that after evaluation in the emergency room, the patient should be admitted for further evaluation and treatment. Her CRP was found to be quite elevated with her tachycardia. The patient was found to be admitted under the sepsis criteria. PATIENT'S NAME: ILEANA JHAVERI [facility] AGE: 56 Y [address] ROOM: [place] [address] [facility] ADMIT DATE: 02/13/2017 History & Physical DISCHARGE DATE: FAMILY PHYSICIAN: ARTEM BELCHER MD ATTENDING PHYSICIAN: DAKOTA DEAN Social history, family history, and past medical illnesses, and surgeries will not be re-reviewed here in this interim report. Please refer to previous H and P by Dr. Gold. HOME MEDICATIONS: 1. Tylenol 650 mg p.o. q.6 hours p.r.n. 2. Ventolin HFA 2 puffs q.6 hours p.r.n. 3. Aspirin 81 mg daily. 4. Tessalon Perles 100 mg 3 times a day. 5. Zyrtec 10 mg daily. 6. Vitamin D3 of 1000 units daily. 7. Vitamin D3, 10,000 units every 7 days. 8. Farxiga 10 mg daily. 9. Dextrose 2 tabs p.r.n. 10. Cardizem 120 mg daily. 11. Flonase 1 spray per nostril b.i.d. 12. Glucagon Pen p.r.n. for hypoglycemia. 13. [place] 5/325 one to two tablets every 4 hours for pain. 14. Insulin glargine 23 units subcu daily. 15. Victoza 1.8 mg subcu daily. 16. Cozaar 50 mg daily. 17. Metformin 1000 mg in the morning. 18. Metformin 1500 mg at bedtime. 19. Zofran 4 mg p.r.n. nausea. 20. MiraLAX 17 g twice daily. 21. Zantac 300 mg daily for heartburn. 22. Zocor 10 mg daily. 23. Ultram 50 mg daily. ALLERGIES: INCLUDE PROTONIX AND CODEINE, WHICH BOTH CAUSE TONGUE SWELLING. REVIEW OF SYSTEMS: Obtained and was otherwise negative other than that noted above. PHYSICAL EXAMINATION: VITAL SIGNS: On admission, blood pressure was 170/92, heart rate was 125, temp was 98.4, respirations were 14. She was 96% on room air. GENERAL: The patient was alert and oriented, in no acute distress. HEENT: Head: Normocephalic and atraumatic. Eyes: PERRLA, EOMI. Ears: TMs are intact, nonerythematous, canals are clear. Nose is patent. Mucosa is pink and moist. Throat: Posterior pharynx is nonerythematous. No tonsillar hypertrophy or exudates. NECK: Supple. No thyromegaly noted. LUNGS: Clear to auscultation and percussion bilaterally. Breath sounds are PATIENT'S NAME: ILEANA JHAVERI [facility] AGE: 56 Y [address] ROOM: [place] [address] [facility] AD[facility] DATE: 02/13/2017 History & Physical DISCHARGE DATE: FAMILY PHYSICIAN: ARTEM BELCHER MD ATTENDING PHYSICIAN: DAKOTA DEAN even and regular. HEART: Regular, tachycardic. No murmurs auscultated. ABDOMEN: Diminished bowel sounds. No masses or organomegaly are palpated. She is nontender to palpation. BACK: No CVA tenderness. She does definitely has paraspinous tenderness throughout the upper and lower back. MUSCULOSKELETAL: No significant effusions or crepitus noted in shoulders, knees, hips, or ankles. NEUROLOGIC: Cranial nerves II through XII grossly intact. No focal or sensory deficits noted. SKIN: Free of rash or lesion. LABORATORY DATA: On admission, ABG shows a pH of 7.29, pCO2 of 30, pO2 of 65, HCO3 of 14.4, CO2 content is 15, base excess is 10.9, percent saturation is 90%. Lactate was 1.3. Procalcitonin was 26.29. Acetone was positive at 1:32. CBC shows a white blood cell count of 8.6, hemoglobin 11.6, hematocrit 37.3, platelets 321. Chemistry shows sodium of 135, potassium 4.0, chloride 102, bicarb 15, anion gap is 22, glucose 296, calcium is 9, BUN 7, creatinine 0.3. Albumin is 2.4, alkaline phosphatase 244, AST 51, ALT 42. CK-MB is 0.5, troponin is less than 0.04. CRP is 14.5. Free T4 1.2, TSH 0.75. UA with microscopy shows positive leukocyte esterase, protein, glucose, and ketones. Micro shows 2-5 white blood cells, 0-2 red blood cells, 5-10 epithelial cells, and rare bacteria. Accu-Chek in the ER was 347. IMAGING DATA: Single view of the chest shows no evidence of acute cardiopulmonary disease. Positive for mediastinal lymphadenopathy. CT scan of the abdomen and pelvis is pending at the time of dictation. IMPRESSION AND PLAN: 1. Sepsis. The patient is admitted per sepsis protocol. We will get blood cultures drawn and follow on her labs accordingly. We will hold off on antibiotics at this time until further determination of source of infection is localized. 2. Mild diabetic ketoacidosis. The patient is started on IV insulin per protocol. We will continue with IV fluids at 150 an hour. The patient likely will need adjustments in her diabetic regimen prior to discharge. We will work with Diabetic Education closely. 3. Metastatic malignant melanoma with broad spread metastases. The patient is scheduled to follow up with Oncology. We will discuss further with attending. Please see outlined orders for further information. 4. Moderate protein-calorie malnutrition. Keep the patient n.p.o. until we know further about her CT scan of the abdomen, and then we will encourage aggressive nutrition re-supplementation. PATIENT'S NAME: ILEANA JHAVERI [facility] AGE: 56 Y [address] ROOM: [place] [address] LOCATION: GPCU ADMIT DATE: 02/13/2017 History & Physical DISCHARGE DATE: FAMILY PHYSICIAN: ARTEM BELCHER MD ATTENDING PHYSICIAN: DAKOTA DEAN 5. Abdominal pain with nausea and vomiting. We will get a CT scan to further rule out obstruction. CODE STATUS: DNR/DNI. We do appreciate participating in this patient's care, and thank you very much for the ability to serve her while hospitalized at [facility]. Further order and evaluation is pending attending physician's review. URBANO FARLEY FOR MD ELOY HERNÁNDEZ/modl /[id number] D: [id number] T: [id number] HISTORY & PHYSICAL
--- NOTE | ~2017-02-13 | CON ---
PATIENT'S NAME: ILEANA JHAVERI [facility] AGE: 56 Y [address] ROOM: [address] [place] [address] LOCATION: GPCU ADMIT DATE: 02/13/2017 Consultation DISCHARGE DATE: FAMILY PHYSICIAN: ARTEM BELCHER MD ATTENDING PHYSICIAN: DAKOTA DEAN REFERRING PHYSICIAN: Andrew Pablo MD Consult to Elizabeth Alfonso. Ileana Jhaveri is a 56-year-old woman with disseminated melanoma. HISTORY OF PRESENT ILLNESS: The history of present illness is obtained from the patient who is a reasonably good historian; from her physician's commercial lines assistant, MARTHA Hinkle; from review of the current and old [facility] record; and review of records obtained from the [facility] in the distant past. Mrs. Jhaveri was discharged from [facility] on 02/10/2017, the day after she underwent a right cervical lymph node biopsy in the radiology suite. She was walking with the help of a walker at that time. She was discharged home with the understanding that she would always have a family member or friend there to care for her. On 02/14/2017, the day of admission, the patient was alone and fell when she favian to go to the bathroom. It was not a hard fall. Her left leg just gave way underneath her and she "sat down." She crawled to the bed. She called Mr. Jhaveri. Mr. Jhaveri transported her to Dr. Belcher's office. Dr. Belcher arranged for her admission to [facility]. Upon admission, the urinalysis revealed 1000 mg/dL of glucose and 150 mg/dL of ketones. There were 2-5 wbc's, 0-2 rbc's and rare bacteria. The white count was 8600 with 78 segs, 3 bands, 11 lymphs, and 8 monos. The hemoglobin was 11.6, the MCV 84, and the platelets 321,000. The INR was 1.08 and the PTT was 29. The CMS was remarkable for an alkaline phosphatase of 240 international units/L, an AST of 51 international units/L, an albumin of 2.4 g/dL, globulin elevated at 5.6 g/dL, a glucose of 296 mg/dL. The eGFR was greater than 60. An LDH drawn today was 1550 international units/L. The TSH was 0.75 uIU/mL. C-reactive protein was 14.5 mg/dL. CK and troponins were normal. A chest x- ray revealed mediastinal adenopathy. An MRI of the brain revealed no intracranial abnormality. The cervical spine film revealed complete replacement of the C7 vertebral body by metastatic disease with minor pathologic compression fracture. There was no epidural tumor, retropulsion or canal stenosis. There was a pathologic compression fracture in T3 with epidural tumor and spinal stenosis. There was metastatic adenopathy to the lower right neck. The thoracic spine MRI revealed, again, the most significant involvement at T3 where there was diffuse tumor replacement of the vertebral PATIENT'S NAME: ILEANA JHAVERI [facility] AGE: 56 Y [address] ROOM: [address] [address] LOCATION: GPCU ADMIT DATE: 02/13/2017 Consultation DISCHARGE DATE: FAMILY PHYSICIAN: ARTEM BELCHER MD ATTENDING PHYSICIAN: DAKOTA DEAN A body with a moderate to severe pathologic compression fracture and epidural tumor behind the vertebral body measuring 20 mm. This produced moderate central canal stenosis. There was a small volume of epidural tumor at T8-T9, eccentric to the left. MRI scan of the lumbar spine and MRI scan of the pelvis are pending. In the meantime, a right cervical lymph node biopsy performed on 02/08/2017, revealed "a malignant process consistent with metastatic melanoma." Mrs. Jhaveri has a history of melanoma. She reports that since she was a baby, she had a mole on her back. The mole "grew as I grew." In 1995, the mole became pruritic and she would sometimes scratch it with a hair brush. In 1998, she scratched it with a hair brush and considerable bleeding ensued. She reported to Dr. Fred Delgadillo who promptly referred her to Dr. Parag Eid who recommended, and then performed, on 03/23/1999, a wide excision of the skin and subcutaneous tissue with vertical growth phase melanoma. The pathologists in [place] and at the [facility] both agreed there was a Breslow's level 2.16 mm thickness tumor with focal ulceration. The patient was referred to Dr. Cory Wynn for evaluation and treatment. Dr. Wynn recommended and performed, on 06/09/1999, injection of vital blue dye, intraoperative lymphoscintigraphy and bilateral axillary sentinel lymph sampling. Neither the left axillary nor right axillary sentinel lymph node contained melanoma. The patient underwent no formal surveillance and no adjuvant therapy. She was in her normal state of health until July of 2016. Prior to that time, she lived alone in [place], [place]. 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 She would walk her dogs a mile a day, weather permitting, and sometimes several times a day. She had no practical limits. She could do yard work, vacuum the house, drive and shop. The patient complains of chronic pins and needles paresthesias in the soles of her feet for 4 years and chronic gastroesophageal reflux, which is well controlled with H2 blockers. In July of 2016, the patient developed a strep throat. This was confirmed by culture. Antibiotics were prescribed and her pharyngitis resolved. Her performance status, which fell at the time of the streptococcal pharyngitis, continued to decline. The patient reports she had "2-3 viral infections." She has developed a cough productive of a quarter cup of clear, stringy yellow sputum without hemoptysis. She has developed progressive fatigue, and for 3 weeks prior to this hospitalization, the patient has been unable to go to work. She is unable to walk because of decreased strength and pain in her left hip. In November 2016, the patient developed right shoulder pain, which radiated down to her waist, along the posterior axillary line. PATIENT'S NAME: ILEANA JHAVERI [facility] AGE: 56 Y [address] ROOM: [id number] [place] [id number] [facility] ADMIT DATE: 02/13/2017 Consultation DISCHARGE DATE: FAMILY PHYSICIAN: ARTEM BELCHER MD ATTENDING PHYSICIAN: DAKOTA DEAN She developed left hip pain across her pelvis and low back. The pain is all positional, but her shoulder pain is fairly persistent even at rest. She gauges her pain level "15/10" at worst. Without analgesia the pain interferes with her sleep. She has cannot work at her job as noted above. She has been anorexic and has lost 40 pounds in the last 5 months. She occasionally has fevers and her chronic drenching night sweats have been worse. She has developed some orthostatic disequilibrium. She experiences a sore chest with coughing. She has developed pedal edema with hydration in the hospital. She reports the nausea strikes her occasionally and she has vomited on occasion. She has experienced some early satiety and was constipated even before narcotic analgesics were administered. She certainly acknowledges she has been "depressed and crappy" with the decline in her health. ACTIVE MEDICAL PROBLEMS, CHRONIC AND DIAGNOSED: 1. Type 2 diabetes mellitus noted in 2000 on a work checkup. In retrospect, the patient was experiencing symptomatic polydipsia. Her type 2 diabetes mellitus has been monitored at home and her diabetic control has not been good. Her course has been complicated by a peripheral neuropathy with pins and needles feelings on the soles of her feet. 2. Arterial hypertension, first noted in early 2016. This has not been labile. This has not been associated with end-organ damage. 3. GERD. Diagnosis is well controlled with ranitidine. 4. Allergic rhinitis? The patient has been on nasal fluticasone. 5. Overweight. BMI 25.4 kg/m2 upon admission. 6. Protein-calorie malnutrition with a pre-albumin of 7 mg/dL on 02/08/2017. 7. 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 8. Benign positional paroxysmal vertigo? since around 2001. 9. Cardiac palpitations, type unknown, treated with beta-blockers. ACUTE MEDICAL ILLNESSES (RESOLVED), PAST SURGERIES, INJURIES: 1. 1962 - tonsillectomy. 2. [id number]: G6, P5, AB1. 3. 1988 - dilatation and curettage with a miscarriage. 4. 1998 - wide excision of melanoma on the trunk followed by bilateral axillary sentinel lymph node sampling. 5. 2014 - concussion. The patient was unconscious for 2 minutes without sequelae. She had an earlier concussion without sequelae too. 6. 2014 - varicella zoster virus in the right lower thoracic-upper lumbar dermatome. MEDICATION UPON ADMISSION: 1. Acetaminophen. 2. Albuterol 2 puffs inhaled every 6 hours. PATIENT'S NAME: ILEANA JHAVERI [facility] AGE: 56 Y [address] ROOM: [address] [address] LOCATION: GPCU ADMIT DATE: 02/13/2017 Consultation DISCHARGE DATE: FAMILY PHYSICIAN: ARTEM BELCHER MD ATTENDING PHYSICIAN: DAKOTA DEAN 3. ASA 81 mg daily. 4. Benzonatate 100 mg p.o. t.i.d. 5. Cetirizine 10 mg p.o. q.24h. 6. Cholecalciferol 10,000 units p.o. every 7 days. 7. Dapagliflozin propanediol 10 mg p.o. q.24h. 8. Diltiazem 100 mg p.o. q.24h. 9. Fluticasone propionate 1 spray b.i.d. 10. Hydrocodone-APAP 1-2 every 4 hours p.r.n. 11. Insulin glargine 23 units subcutaneous daily. 12. Liraglutide 1.8 mg subcu daily. 13. Losartan 50 mg p.o. q.24h. 14. Metformin 1000 mg p.o. q.a.m. 15. Metformin 1500 mg p.o. at bedtime. 16. Ondansetron 4 mg every 4 hours p.r.n. nausea. 17. Polyethylene glycol 17 g p.o. b.i.d. 18. Ranitidine 300 mg p.o. daily. 19. Simvastatin 10 mg p.o. daily. 20. Tramadol 50 mg daily. ADDITIONAL ACTIVE MEDICAL PROBLEMS, CHRONIC AND DIAGNOSED: 1. Hypercholesterolemia. 2. Hypovitaminosis D. ADVERSE REACTIONS TO MEDICATIONS, TRANSFUSIONS, ALLERGIES: 1. Pantoprazole led to edema of the hands and tongue. 2. The patient has had transfusions following her miscarriage. TOBACCO: None. ALCOHOL: None. CAFFEINE: None. IMMUNIZATIONS: Positive flu. Positive Pneumovax in 2011. Positive tetanus. Positive varicella zoster virus. FAMILY HISTORY: The patient's maternal grandmother had a melanoma on the face, arm, and leg, and they were all cured with surgery. The patient herself has not been sunburned as a child; has not been a son PATIENT'S NAME: ILEANA JHAVERI Chip [facility] AGE: 56 Y [address] ROOM: [address] [place] [id number] LOCATION: [facility] ADMIT DATE: 02/13/2017 Consultation DISCHARGE DATE: FAMILY PHYSICIAN: ARTEM BELCHER MD ATTENDING PHYSICIAN: DAOKTA DEAN A worshiper. She has undergone several excisional biopsies at [facility] and some lesions were removed from her shoulder, trunk, and left thigh from [id number]. SOCIAL HISTORY: The patient was born and raised a [place]. 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 She has worked in [employer] at [employer] for a long time. The patient and her were both in prior marriages with children and then and remarried. The patient has a son in [place], [place]; a son in [place], [place]; 2 sons in [place]; and a son in [place]. She has a stepdaughter in [place], [place] and [place], [place]. They are not spiritism-goers. Mrs. Jhaveri lives in [place] and Mr. Jhaveri in [place] due to their different job and family responsibilties. They are not . REVIEW OF SYMPTOMS: 1. Occasional nosebleeds. 2. Occasional nocturnal leg cramps. PHYSICAL EXAMINATION: VITAL SIGNS: Pulse 120 and regular, blood pressure 130/75, respiratory rate 18, temperature 97.8, SpO2 of 93%. Height 63 inches, weight 65.2 kg/m2 (143 pounds), BMI 25.4 kg/m2. GENERAL: A well-developed, slightly overweight, 56-year-old female, in no acute distress. HEENT: Unremarkable. LYMPH NODES: The patient has palpable 2 cm lymph nodes in the right supraclavicular and right lower cervical chain. SKIN: Multiple junctional nevi, hays angiomas, acrochordons, and warts as well as freckles. NECK: Without JVD or carotid bruits. CHEST: Clear. CARDIOPVASCULAR: Regular rhythm. No murmurs, bruits, or adventitious sounds. BREASTS: Not examined. ABDOMEN: There are abdominal striae on the lower lateral abdomen. No masses, tenderness, or organomegaly. GENITALIA AND RECTAL: Not examined. EXTREMITIES: Pulses 2+ throughout, without peripheral edema. NEUROLOGIC: Cranial nerves 2 through 12 intact. Strength 5/5 throughout in the arms and right leg. The strength is 2/5 in the left leg and the patient will not move it without lifting and with her hands. ADDITIONAL LABORATORY: The procalcitonin upon admission was 12.02 ng/mL. ADDITIONAL X-RAY: The nuclear medicine bone scan on 02/10/2017 revealed numerous areas of bony PATIENT'S NAME: ILEANA JHAVERI [facility] AGE: 56 Y [address] ROOM: [id number] [place], [place] [address] LOCATION: GPCU ADMIT DATE: 02/13/2017 Consultation DISCHARGE DATE: FAMILY PHYSICIAN: ARTEM BELCHER MD ATTENDING PHYSICIAN: DAKOTA DEAN A tracer activity including posterior right frontal skull, biparietal skull, bilateral ribs, thoracic spine, lumbar spine, bony pelvis and proximal left femur. Findings were consistent with extensive osseous metastatic disease. IMPRESSION: 1. Stage IV (malignant process consistent with metastatic melanoma) metastatic to the bone (proximal left femur, pelvis, the ribs, right frontal and biparietal skull, and lumbar and thoracic spine), the liver, the right lung, the right cervical, right hilar, mediastinal and periportal lymph nodes developing from a Stage IIB (pT3b,pN0,M0). The Breslow's level was 2.16 mm and there was focal ulceration. The twenty year survival is roughly 45% with that stage. 2. Risk factors possibly include a congenital nevi. 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 3. We expect this to be a chronic lifelong disease, although, in this day and age, it is often treatable. Some patients experience durable remissions and possible cures have been observed. However, our main treatment goals will be to palliate her symptoms, prevent complications, restore and prolong her normal life as possible. As always, we hope to minimize the expense, inconvenience, and side effects of treatment. The potential side effects, expense, and inconvenience of treatment could be considerable. 4. Our priorities are to evaluate the left hip pain and treat it, which is disabling at this point. We also need to confirm the diagnosis of recurrent melanoma and determine the BRAF V600 status of the cancer. Genetics consultation is also reasonable. We need to evaluate a possible need for surgery or radiation therapy to the left femur. RECOMMEND: DIAGNOSTIC: 1. Plain films of the pelvis, left femur, and hip if the patient can tolerate them. 2. Genetics consultation. 3. Forward the tissue for determination of the BRAF V600 status. This has already been sent for [place] [id number] Next-Generation gene sequencing. TREATMENT: 1. Depends on the findings on the plain films of the left femur. If the patient has a large lytic lesion, she might benefit from orthopedic surgical consultation. At the minimum, it would seem radiation therapy might be helpful. 2. We will weigh the pros and cons of systemic therapy when the report has returned on the patient's BRAF mutation status. If that is positive, treatment with the dabrafenib and trametinibwould be one standard approach. Enrollment on a clinical trial would also be reasonable. PATIENT'S NAME: ILEANA JHAVERI [facility] AGE: 56 Y [address] ROOM: [address] [address] LOCATION: [facility] ADMIT DATE: 02/13/2017 Consultation DISCHARGE DATE: FAMILY PHYSICIAN: ARTEM BELCHER MD ATTENDING PHYSICIAN: DAKOTA DEAN PATIENT EDUCATION: 1. Discussed her disease. 2. Discussed the risk factors and the recommendation for a genetics consultation. 3. Discussed the natural history of the disease without intervention. 4. Discussed the treatment goals and the expectations. 5. Discussed the immediate priorities. MD SHANA STARR/modl /[id number] CC: MD Elizabeth Argueta APRN Susan H Corey, MD Bhavish Aubeelauck, MD [place], [place] [id number] [place] [id number] d: 02/16/17 0327 t: 02/19/17 0943, CONSULTATION REPORT
--- NOTE | ~2017-02-13 | DS ---
PATIENT'S NAME: ILEANA JHAVERI [facility] AGE: 56 Y [address] ROOM: [address] [place], [place] [address] [place] [facility] [place]: 02/13/2017 Discharge Summary DISCHARGE DATE: 03/21/2017 FAMILY PHYSICIAN: Owen Pathak MD ATTENDING PHYSICIAN: Neil Kaur PRIMARY DIAGNOSES: 1. Metastatic melanoma. 2. Shock probably hemorrhagic versus questionable sepsis. 3. Acute blood loss anemia. 4. Gastric erosion. 5. Acute pulmonary embolism. 6. Inferior vena cava thrombosis. 7. Pain of metastatic disease. 8. Pathological fracture of left femur. 9. Physical deconditioning. 10. Acute hypoxic respiratory failure. 11. Acute urinary retention. 12. Transfusion with 1 unit of blood. PRINCIPAL PROCEDURES DONE FOR THE PATIENT: Includes intramedullary pin in the left femur, neck fracture, by Dr. Lopez. LABORATORY DATA: WBC prior to discharge was 5.7, H and H on admission were 10.1, lowest level obtained was 7.1, and prior to discharge was 10.4, and platelet on admission was 353, was stable throughout the hospital stay. Prior to discharge was 277. Creatinine was stable throughout the hospital stay. Upon discharge, it was 0.3. Sodium was well, was essentially stable throughout her hospital stay. Sodium on discharge was 137. Potassium lowest level obtained was 2.9, prior to discharge was 4.4, bicarb was stable throughout the hospital stay. LDH on admission was 872, highest level obtained was 4000, prior to discharge was 467. Liver function tests were within normal limit. Alkaline phosphatase was 165 on admission, prior to discharge was 277. Phosphorus on admission was 1.5, was also repleted. The patient had multiple UAs, last UA prior to discharge was leukocytes 100, nitrite negative, protein 30, wbc's 2 to 5, haptoglobin was 530, and procalcitonin was 0.85 during the hospital stay. MICROBIOLOGY: Cultures taken throughout the whole stay was negative. Urine culture and blood culture were all negative except for Mee in the urine culture, which was less than 1000. Stool was negative for occult blood. RADIOLOGY: Chest x-ray. No evidence of acute cardiopulmonary disease. Mediastinal lymphadenopathy. CT of the abdomen and pelvis, thrombus within the IVC, pathologic fracture of L2. Liver and periportal lymph node, PATIENT'S NAME: ILEANA JHAVERI [facility] AGE: 56 Y [address] ROOM: [address] [place], [place] [address] [place]: [facility] [place]: 02/13/2017 Discharge Summary DISCHARGE DATE: 03/21/2017 FAMILY PHYSICIAN: Owen Pathak MD ATTENDING PHYSICIAN: Neil Kaur A metastatic disease without significant change in the short interval. CTA for PE protocol. Tiny nonocclusive PE within the distal right main pulmonary artery, [id number] T2 pathological compression fracture, likely with albuterol 2 more posteriorly. MRI of the brain. No intracranial abnormalities. MRI cervical and thoracic. C-spine bone metastatic disease most prominent at C7 and C1. The cervical cord is normal. There is no cervical spinal stenosis. CT thorax. Metastatic melanoma affects all levels of the T-spine with bone metastases, [id number] T3 pathologic compression fracture with epidural tumor producing moderate central canal stenosis. An x-ray of the pelvis. Metastatic bone lesions in the pelvis and proximal left femur not well seen by plain film. There is no evidence of pathologic fracture. An x-ray of the left femur. Metastatic bone lesions to the pelvis and proximal left femur not well seen by plain film. MRI of the lumbar. Bone metastatic disease to all levels of the lumbar spine. Mild pathologic compression fracture at L2. Small volume epidural tumor present at L2 and S1 levels. An MRI of pelvis. Metastatic melanoma to the bony pelvis and bilateral proximal femurs prominent metastasis to the left, proximal femur will be at risk for pathologic fracture. There is extensive surrounding muscular edema involving the left obturator is a proximal rectus musculature, which may correlate with left hip pain. Chest x-ray: Mild bibasilar opacities favor atelectasis. An x-ray of the hip. Post procedure fluoroscopic spot views, document, placement of intramedullary hip screw and long intramedullary scotty for bone stabilization of the left femur. CT of the abdomen and pelvis without contrast: No unexpected hemorrhage, soft tissue infiltration, swelling and gas at the left hip and buttock not more than expected given the recent hip surgery. Liver and upper abdomen, and lymph node metastasis are mildly increased. HOSPITAL COURSE: For history of present illness, please take a look at the H and P, which was done by Dr. Cerda. So, the patient was admitted to PCU, PATIENT'S NAME: ILEANA JHAVERI [facility] AGE: 56 Y [address] ROOM: [address] [place], [place] [address] [place]: [facility] [place]: 02/13/2017 Discharge Summary DISCHARGE DATE: 03/21/2017 FAMILY PHYSICIAN: Owen Pathak MD ATTENDING PHYSICIAN: Neil Kaur with a diagnosis of metastatic melanoma and because of this, she did also get an Oncology consult with Dr. Pablo. Given her presentation as well with left upper extremity and left lower extremity weakness, she did get several radiographic studies done, which ultimately showed metastasis to the bones and also whole of the spine. So, her pain initially was controlled with IV Dilaudid and she did also get a CT of the chest, which confirmed the PE and did also confirm an IVC thrombosis and she was subsequently put on Lovenox. Given the metastasis to her left hip and left shoulder, which gave her so much pain. The patient requested for Dr. Arellano for stabilization of her femur given that she was at risk of pathological fracture. Initially, the pain was controlled with IV Dilaudid, however, as hospital stay progressed and she was transferred from PCU to Med/Surg, her pain scale increased dramatically, such that she was ultimately put on Dilaudid RECOVERY COORDINATOR pump and she also had some Decadron put in place at this time as well. While in Med/Surg on February 22, she had procedure to her left femur done by Dr. Lopez, had an intramedullary nailing of the neck of the femur. Procedure was well tolerated by the patient without any intraop or postop complications. After the patient was reviewed by Dr. Pablo, he recommended to have the genetic counseling nurse visit with the patient and also had BRAF screening done on the patient. Given the fact that the patient was in severe pain and required RECOVERY COORDINATOR. The patient was unable to be discharged and was still awaiting the results of the BRAF gene testing to be made available from the outside lab, which it was sent to. Two days postop, the patient became hypotensive and developed fever and also hemoglobin as well dropped and so, she was transferred to ICU and she was started on neomycin. While in ICU, she had workup done to rule out any source of bleeding. Her stool occult blood was negative. CTA of the abdomen and pelvis was negative for in vitro peritoneal bleed, however, because of blood pressure remained unstable, anytime she was weaned off the pressors, we did get a GI consult, who went ahead to do an EGD and a colonoscopy. Colonoscopy essentially was negative, however, the EGD showed some gastric erosion, so they recommended for the patient to be on b.i.d. dosing of Protonix, so the patient was put on famotidine as she was allergic to Protonix. During this time, as well, she was also put on broad-spectrum antibiotics of Zosyn, Levaquin, and vancomycin. After 48 hours and the cultures continue to remain negative, her antibiotics was deescalated to Levaquin, which she completed for a total of 7 days. She was eventually transferred out of the ICU, back to PCU, however, there was difficulty in controlling her pain. Eventually, she was weaned off RECOVERY COORDINATOR, but pain became more severe and she was ultimately put back on RECOVERY COORDINATOR by Dr. Pablo. Please check the note dictated by Dr. Pablo for details of the management of her melanoma. Eventually, the results of the BRAF were available and the patient was commenced on the zoledronic acid by Dr. Pablo. Eventually, the patient was commended on the BRAF therapy on March 09, 2017. During which time, she was still on RECOVERY COORDINATOR pump of Dilaudid. She did also develop some acute urinary retention for which she did require Forrest and filled bladder training multiple times. Following the commencement of the PATIENT'S NAME: ILEANA JHAVERI [facility] AGE: 56 Y [address] ROOM: [address] [place] [id number] [place]: [facility] [place]: 02/13/2017 Discharge Summary DISCHARGE DATE: 03/21/2017 FAMILY PHYSICIAN: Owen Pathak MD ATTENDING PHYSICIAN: Neil Kaur BRAF therapy, the patient appeared to have improved medically, pain improved, and eventually, she was weaned off her Dilaudid RECOVERY COORDINATOR pump at around 4 to 5 days prior to discharge and was switched back to p.o. Dilaudid, which helped to control her pain. During the hospital stay, she did develop physical deconditioning due to the cancer as well as due to her pain as she was unable to do much physical therapy. The patient also did require a lot of motivation in order to get anything done most especially regarding participating in physical therapy. During her hospital stay as well, she did also have a lot of emotional breakdown due to the fact that she was not getting much support from her . Given the physical deconditioning, which the patient had, the ideal was for the patient to be discharged to a swing bed, but because of the BRAF therapy, which she was on her insurance, were not able to take of the expensive of the medication while in swing bed. She was evaluated by Dr. Chapman, who felt that she was a candidate for acute rehab, but, however, given the patient's severe physical deconditioning, it was not possible for the patient to actually do 3 hours of physical therapy, so ultimately, we had no other option, but to discharge the patient home with home health as well as PT and OT. Lasts 3 to 4 days prior to discharge, the patient was in the high spirit, pain was very well controlled, and she was participating more with physical therapy, and on the day of discharge, her vital signs were stable and she was discharged home. MEDICATIONS ON DISCHARGE: Includes, 1. Tessalon 100 mg p.o. 3 times daily. 2. Zofran 4 mg orally q.4 hours as needed. 3. Ranitidine 300 mg orally daily as needed. 4. Aspirin 81 mg p.o. daily. 5. Flonase 1 spray nasally twice daily. 6. Dextrose 16 g orally one time as needed. 7. Albuterol 2 puffs inhalation every 6 hours as needed. 8. Zocor 10 mg orally p.o. daily. 9. Vitamin D3 10,000 units orally q.7 days. 10. Farxiga 10 mg orally daily. 11. Zyrtec 10 mg orally daily as needed. 12. Vitamin D3 1000 unit orally daily. 13. MiraLAX 17 g orally twice daily. 14. Tylenol 1 g p.o. q.8 hours as needed. 15. Glucagon. 16. Xanax 0.25 mg orally q.a.m. 17. Colace 100 mg p.o. twice daily. 18. Lovenox 50 mg subcu twice daily. 19. Dilaudid 2 mg q.4 hours as needed. 20. Insulin aspart and Levemir insulin 5 units subcu twice daily. 21. Midodrine 5 mg orally twice daily. 22. Vitamin D 50,000 units, 5000 units orally units q.7 days. PATIENT'S NAME: ILEANA JHAVERI [facility] AGE: 56 Y [address] ROOM: [place] [address] [place]: [facility] [place]: 02/13/2017 Discharge Summary DISCHARGE DATE: 03/21/2017 FAMILY PHYSICIAN: Owen Pathak MD ATTENDING PHYSICIAN: Neil Kaur 23. Calcium carbonate 1 g orally every 4 hours as needed. Discharge time spent on this patient is approximately 45 minutes, which included coordinating, discharge with care management and counseling the patient on the importance of motivation herself, and also given the fact that was stopped a lot of her diabetic medication, if her blood sugar is greater than 250, she knows to call her PCP, who would slowly restart some of her diabetic medication, which was stopped upon discharge. MD AMINTA DENISE/ricci /[id number] d: 03/21/17 2356 t: 03/25/17 1419, DISCHARGE SUMMARY
[~2017-02-13 10:54] MED LIST changes: -COLACE100 MG PO; -DILAUDID 2MG(HYD2 MG PO; -DRISDOL 5050000 UNIT PO; -LEVEMIR FL100 UNIT/1 SUB-Q; -LIDODERM1 EACH TRANS; -LOVENOX 6060 MG/0.6 SUB-Q; -MEKINIST2 MG PO; -MILK OF MA400 MG/5 M PO; -NOVOLOG FL100 UNIT/1 SUB-Q; -NYSTATIN100000 UNI PO; -PROAMATINE5 MG PO; -TAFINLAR75 MG PO; -TUMS REGULAR ST1 TAB PO; -TYLENOL EXTRA500 MG PO; -XANAX0.25 M1 PO; -XARELTO15 MG PO
[2017-02-13 11:41] LABS: BICARBONATE 14.4 mmol/L (18.0-23.0); HEMATOCRIT 37.3 % (33.0-46.0); HEMOGLOBIN 11.6 g/dL (10.0-15.0); LACTATE 1.3 mEq/L (0.50-1.60); MCHC 31.1 gm/dL (32.0-36.5); MCV 83.6 fl (83.0-98.0); MPV 9.7 fl (9.4-12.4); PCO2 30 mmHg (35-45); PLATELET COUNT 321 K/uL (150-450); PO2 65 mmHg (80-90); RBC 4.46 M/uL (3.50-5.50); RDW-CV 14.6 % (11.9-14.6); WBC 8.6 K/uL (4.0-11.0)
[2017-02-13 11:52] LABS: INR - (THERAPEUTIC) 1.08 (0.92-1.07); PROTIME 11.4 SECONDS (9.8-11.4); PTT 29 SECONDS (25-32)
[2017-02-13 12:08] LABS: BANDED NEUTROPHIL # 0.3 K/uL (0.0-0.1); BANDED NEUTROPHILS % 3 %; LYMPHOCYTE # 0.9 K/uL (0.8-4.0); LYMPHOCYTE % 11 %; MONOCYTE # 0.7 K/uL (0.0-1.0); SEGMENTED NEUTROPHIL # 6.7 K/uL (1.8-7.8); SEGMENTED NEUTROPHIL % 78 %
[2017-02-13 12:14] LABS: ALBUMIN 2.4 gm/dL (3.5-5.0); ALK PHOS 244 IU/L (33-138); ALT 42 IU/L (12-78); AST 51 IU/L (10-40); BLOOD UREA NITROGEN 7 mg/dL (6-24); CHLORIDE 102 mMol/L (96-110); CREATININE 0.3 mg/dL (0.5-1.1); ESTIMATED GFR (MDRD EQUATION) > 60; SODIUM 135 mMol/L (135-145); TOTAL BILIRUBIN 0.4 mg/dL (0.0-1.5)
[2017-02-13 12:15] LABS: CO2 15 mMol/L (22-32)
[2017-02-13 12:45] LABS: BILIRUBIN URINE NEGATIVE (NEGATIVE); BLOOD URINE 10 /UL (NEGATIVE); COLOR URINE STRAW (YELLOW); GLUCOSE URINE 1000 mg/dL (NEGATIVE); KETONE URINE 150 mg/dL (NEGATIVE); LEUKOCYTES URINE 25 /UL (NEGATIVE); NITRITE URINE NEGATIVE (NEGATIVE); PROTEIN URINE 15 mg/dL (NEGATIVE); SPEC GRAVITY URINE 1.025 (1.003-1.035); TURBIDITY URINE 1+ (CLEAR); UROBILINOGEN URINE NORMAL (NORMAL)
[2017-02-13 12:50] LABS: BACTERIA URINE RARE (NEGATIVE); RBC URINE 0-2 #/HPF (NEGATIVE)
--- NOTE | 2017-02-13 13:39 | NUR ---
PT is 56 y/o female admit for DKA for hospitalist. Pt alert and oriented x3. Came through ED with nausea and vomiting. States she hasn't felt well since October and has lost about 20+ pounds. She was an inpatient just last week and found out she has melanoma with mets. She has hx malignant melanoma from about 20 yrs ago, on her back; hx gerd,constipation,left arm and hip joint soreness, neuropathy in her feet and fingertips,DM,irregular rhythm. pt states she had a lymph node bx last week to gather further information regarding her recent dx. Allergy to codeine and protonix. Red and yellow bracelets to be applied. Pt resides at home with her .
[2017-02-13 17:06] LABS: MAGNESIUM 1.8 mg/dL (1.8-2.6)
[2017-02-13 17:10] LABS: ALBUMIN 2.2 gm/dL (3.5-5.0); ANION GAP 18.7 (10.0-19.0); BLOOD UREA NITROGEN 4 mg/dL (6-24); CALCIUM 8.7 mg/dL (8.5-10.5); CHLORIDE 103 mMol/L (96-110); CO2 18 mMol/L (22-32); CREATININE 0.4 mg/dL (0.5-1.1); ESTIMATED GFR (MDRD EQUATION) > 60; POTASSIUM 3.7 mMol/L (3.7-5.1); SODIUM 136 mMol/L (135-145)
--- NOTE | 2017-02-13 17:54 | NUR ---
Significant Event: Patient A/O x 3. Up with 1PA to commode. HR's 120-150's. MD's aware. SBP 140-150's. Afebrile. Nonproductive cough. Lung sounds clear. Bowel sounds active. Patient reports problems with constipation. Last BM last night. Chronic pain to R)shoulder and L)hip. Last gave Dilaudid at 1718. working on home med recon. Insulin gtt at 5 units/h- to run per protocol. Heparin gtt infusing at 1000 units/h with next PTTHP at 2200. D5LR infusing at 75 ml/h with insulin gtt. Gave 1L IV bolus of LR. Follow up: Continue as per plan of care. Close monitoring of labs.
[2017-02-13 20:52] LABS: ANION GAP 13.3 (10.0-19.0); POTASSIUM 3.3 mMol/L (3.7-5.1)
[2017-02-13 23:20] LABS: ANION GAP 13.5 (10.0-19.0); POTASSIUM 3.5 mMol/L (3.7-5.1)
[2017-02-14 04:33] LABS: BASOPHIL % 0.2 %; EOSINOPHIL % 0.1 %; HEMATOCRIT 33.5 % (33.0-46.0); HEMOGLOBIN 10.6 g/dL (10.0-15.0); IMMATURE GRANULOCYTE # 0.2 K/uL (0.0-0.3); IMMATURE GRANULOCYTE % 2.4 %; LYMPHOCYTE # 1.2 K/uL (0.8-4.0); LYMPHOCYTE % 14.4 %; MCH 25.6 pg (27.0-34.0); MCHC 31.6 gm/dL (32.0-36.5); MCV 80.9 fl (83.0-98.0); MONOCYTE # 0.9 K/uL (0.0-1.0); MONOCYTE % 10.7 %; MPV 9.4 fl (9.4-12.4); NEUTROPHIL # (ANC) 6.1 K/uL (1.8-7.8); NEUTROPHIL % 72.2 %; NRBC % 0 /100WBC (0-0.00); PLATELET COUNT 277 K/uL (150-450); RBC 4.14 M/uL (3.50-5.50); RDW-CV 14.6 % (11.9-14.6); WBC 8.5 K/uL (4.0-11.0)
[2017-02-14 04:50] LABS: BLOOD UREA NITROGEN 2 mg/dL (6-24); CHLORIDE 101 mMol/L (96-110); CO2 23 mMol/L (22-32); CREATININE 0.3 mg/dL (0.5-1.1); ESTIMATED GFR (MDRD EQUATION) > 60; SODIUM 135 mMol/L (135-145)
--- NOTE | 2017-02-14 05:15 | NUR ---
Significant Event: Pt A&Ox3. VS stable, remains on RA. DKA protocol d/c'd; heparin gtt d/c'd; insulin gtt d/c'd. Pt has chronic neuropathy in mesfin feet and hands; however, intermittent. HR has been irregular and in ST. Pt has been voiding via BSC. Pain associated with L) hip, R) shoulder, and L) knee. Currently heating pad on L) knee. Has PRN Tylenol 1g q8 and IV Dilaudid. Tylenol last given @ 0336; Dilaudid available anytime. Pt very hard stick with 24g LH, LR @ 150; 20g RH, 40KCl infusing. No c/o N/V/D. Pt on ADA diet with aggressive scale insulin. Follow up: Pain control. Control BS. Continue plan of care.
[2017-02-14 08:34] LABS: ANION GAP 14.4 (10.0-19.0); POTASSIUM 4.4 mMol/L (3.7-5.1)
[2017-02-14 12:40] LABS: ANION GAP 12.8 (10.0-19.0); POTASSIUM 3.8 mMol/L (3.7-5.1)
--- NOTE | 2017-02-14 13:12 | NUR ---
Talked in the hallway with Lori from [facility]. Lori tells me that she had been talking with Arabella and she had voiced concerns about her financial limitations and what was going to happen when she left here. From what Lori tells me Arabella lives here in [place], she is , but her doesn't live with her although he is active in her life. They have kids but they are all around [place] and [place] so they aren't really much help. Arabella does have insurance at this time, but because she might not be able to work, she is wanting to know if she would qualify for Medicaid or Disability. I let Lori know I would make a referral to Elizabeth ([facility]) here in the hospital and see if Rachael can come up and talk with Arabella about her finacial concerns. Lori states that would be a good idea. I was going to go in and visit with Arabella after I got done talking with Lori but Elizabeth Bentley with the hospitalists was in talking with her so I will go back and talk with her later today or tomorrow. I did get down to my office and gave a verbal report to Rachael with [facility] and asked that she go and talk with Arabella either later this afternoon or tomorrow. She states she will print out her information and then follow up with her SARAH. CM to continue to follow and assist.
[2017-02-14 16:49] LABS: ANION GAP 15.3 (10.0-19.0)
[2017-02-14 16:56] LABS: POTASSIUM 5.3 mMol/L (3.7-5.1)
--- NOTE | 2017-02-14 17:44 | NUR ---
Significant Event:HR-100'S-120'S.OTHER VSS.RA.NEW WEAKNESS TO LT LEG, AND LT ARM THIS SHIFT. DOWN GETTING A MRI AT THIS TIME.C/O PAIN TO BACK/RT SHOULDER, AND LT LEG. TYLENOL, AND ULTRAM GIVEN THIS SHIFT. PLEASE REFER TO EMAR FOR TIMES. CONSULTED. HERE TO SEE PATIENT, BUT PATIENT DOWN GETTING A MRI.PATIENT IS UP WITH 1 ASSIST. STANDS, AND PIVOTS TO COMMODE.PATIENT HAS A HARD TIME MOVING THE LEFT LEG. Follow up:WILL CONTINUE TO MONITOR PER PLAN OF CARE.
--- NOTE | 2017-02-15 04:40 | NUR ---
Pt a/o x4. vss on RA, afebrile. con't on LR at 150ml/hr. very poor pain control. 4mg diluadid po given x2. 0.5mg ivp diluadid given x1. zofran given right after mri. no other issues with nausea. Pt complained at start of shift that she "couldn't lift her L arm or move it" right after her MRI, but as the the night progressed or if I would hand her her pain pills her arm could move with no complications. anytime I asked her to move it she couldn't move it but on her own free will she could move it when she wanted to. LLE remained "immobile" througout the night, similar to the arm. She could bend and move it whenever she felt she could but not on demand. throughout the night her "symptoms" would switch sides. Pt denied all other stroke type symptoms. waiting MRI results. Code status changed to DNR Plan: needs possible placement. no one at home to care for her.
[2017-02-15 05:20] LABS: BASOPHIL % 0.2 %; EOSINOPHIL % 0.1 %; HEMATOCRIT 29.8 % (33.0-46.0); HEMOGLOBIN 9.5 g/dL (10.0-15.0); IMMATURE GRANULOCYTE # 0.1 K/uL (0.0-0.3); IMMATURE GRANULOCYTE % 1.4 %; LYMPHOCYTE # 1.2 K/uL (0.8-4.0); LYMPHOCYTE % 14.3 %; MCH 25.7 pg (27.0-34.0); MCHC 31.9 gm/dL (32.0-36.5); MCV 80.8 fl (83.0-98.0); MONOCYTE # 0.9 K/uL (0.0-1.0); MONOCYTE % 11.3 %; MPV 9.5 fl (9.4-12.4); NEUTROPHIL # (ANC) 5.9 K/uL (1.8-7.8); NEUTROPHIL % 72.7 %; NRBC % 0 /100WBC (0-0.00); PLATELET COUNT 238 K/uL (150-450); RBC 3.69 M/uL (3.50-5.50); RDW-CV 14.8 % (11.9-14.6); WBC 8.1 K/uL (4.0-11.0)
[2017-02-15 05:36] LABS: CHLORIDE 99 mMol/L (96-110); CO2 30 mMol/L (22-32); CREATININE 0.2 mg/dL (0.5-1.1); ESTIMATED GFR (MDRD EQUATION) > 60; MAGNESIUM 1.7 mg/dL (1.8-2.6); SODIUM 136 mMol/L (135-145)
[2017-02-15 05:46] LABS: ANION GAP 10.3 (10.0-19.0); BLOOD UREA NITROGEN 4 mg/dL (6-24); POTASSIUM 3.3 mMol/L (3.7-5.1)
--- NOTE | 2017-02-15 16:16 | NUR ---
Introduced self and CM role to Arabella, her friend and her daughter in law who was at bedside. I am familiar with them from previous encounters. I let them know that I had made a referral to Rachael in the [facility] office in reference to Boogie' Medicaid and Diability questions so she should be expecting that Rachael will be making contact with her. Arabella tells me that she might go home as soon as tomorrow or over the weekend. If she goes home, her daughter in law states that she will be staying with her to help care for her until her son can get there in a week to take care of her. She has some equiptment at home, but knows where to obtain more if she would need to do so. Has no concerns about going home. Arabella also tells me that she called and checked her insurance benifits and she does not have any skilled ones at this time, so her only option at this point is to return home. She is unsure if she will be able to work or not. Encouraged her to get a letter from either Dr. Rangel or [facility], if she needed to turn one into her place of work or to short term disability. She tells me she will do this. Let her know that I would continue to follow and assist. No other questions, needs or concerns. Plan home.
--- NOTE | 2017-02-15 19:27 | NUR ---
Significant Event:Up to commodae with 2 assist. No stool. A/0 X3. Dilaudid iv x 2 last at 1830, Tylenol at 1110, Dilaudid po given. LS clear and diminished. Abd soft. IV right hand and sl in left forearm. Poor appetite. HR 110-120's. afebrile. Accuchecks untreated. Follow up:Jie Gibson to see in am. review of cancer treatment plan.
--- NOTE | 2017-02-16 04:35 | NUR ---
Significant events: Pt A/Ox3. VSS. Dilaudid for pain. Up 2PA to commode. Lactated Ringer at TKO. HR increased to 130-140's with bursts of SVT, PO cardizem started. HR down to 110-120's. Slept most of shift.
[2017-02-16 06:04] LABS: BASOPHIL % 0.3 %; HEMATOCRIT 30.4 % (33.0-46.0); HEMOGLOBIN 9.5 g/dL (10.0-15.0); IMMATURE GRANULOCYTE # 0.2 K/uL (0.0-0.3); IMMATURE GRANULOCYTE % 2.7 %; LYMPHOCYTE % 13.4 %; MCH 25.6 pg (27.0-34.0); MCHC 31.3 gm/dL (32.0-36.5); MCV 81.9 fl (83.0-98.0); MONOCYTE # 0.8 K/uL (0.0-1.0); MPV 9.4 fl (9.4-12.4); NEUTROPHIL # (ANC) 5.5 K/uL (1.8-7.8); NEUTROPHIL % 72.6 %; NRBC % 0 /100WBC (0-0.00); PLATELET COUNT 245 K/uL (150-450); RBC 3.71 M/uL (3.50-5.50); RDW-CV 14.9 % (11.9-14.6); WBC 7.5 K/uL (4.0-11.0)
[2017-02-16 06:20] LABS: ANION GAP 10.6 (10.0-19.0); BLOOD UREA NITROGEN 4 mg/dL (6-24); CALCIUM 9.1 mg/dL (8.5-10.5); CHLORIDE 98 mMol/L (96-110); CO2 31 mMol/L (22-32); CREATININE 0.3 mg/dL (0.5-1.1); ESTIMATED GFR (MDRD EQUATION) > 60; PHOSPHORUS 3.9 mg/dL (2.5-4.9); POTASSIUM 3.6 mMol/L (3.7-5.1); SODIUM 136 mMol/L (135-145)
[2017-02-16 06:21] LABS: ALBUMIN 1.7 gm/dL (3.5-5.0)
--- NOTE | 2017-02-16 16:23 | NUR ---
Significant Event: VSS AND RA. AFEBRILE. 4 MG PO DILAUDID WAS GIVEN Q4H THIS SHIFT, WITH GOOD PAIN CONTROL FOR CHRONIC PAIN. PT/OT FOLLOWING, DANGLES AND UP TO THE BSC THIS AFTERNOON, IS VERY WEAK. APPETITE FAIR. 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 REPOSITIONED Q2H AND ALOE TO BUTTOCKS AND BILATERAL HEELS; HEELS KEPT AFLOAT AT ALL TIMES-HAD SOME REDNESS TO THE LT)HEEL THIS AM WHICH RESOLVED WITH CONSTANT ELEVATION AND ALOE VESTA. INHALER GIVEN X1 THIS AFTERNOON. Follow up: CONTINUE PLAN OF CARE.
--- NOTE | 2017-02-17 04:09 | NUR ---
Significant events: Pt A/Ox3. VSS. Dilaudid PO x1 for pain. Up to bedside commode. ACHS accucheck. Slept well this shift.
[2017-02-17 06:50] LABS: HEMATOCRIT 32.5 % (33.0-46.0); HEMOGLOBIN 10.1 g/dL (10.0-15.0); IMMATURE GRANULOCYTE # 0.2 K/uL (0.0-0.3); IMMATURE GRANULOCYTE % 3.7 %; LYMPHOCYTE # 0.6 K/uL (0.8-4.0); LYMPHOCYTE % 10.2 %; MCH 25.4 pg (27.0-34.0); MCHC 31.1 gm/dL (32.0-36.5); MCV 81.9 fl (83.0-98.0); MONOCYTE # 0.2 K/uL (0.0-1.0); MONOCYTE % 4.3 %; MPV 9.8 fl (9.4-12.4); NEUTROPHIL # (ANC) 4.6 K/uL (1.8-7.8); NEUTROPHIL % 81.8 %; NRBC % 0 /100WBC (0-0.00); PLATELET COUNT 281 K/uL (150-450); RBC 3.97 M/uL (3.50-5.50); RDW-CV 14.7 % (11.9-14.6); WBC 5.6 K/uL (4.0-11.0)
[2017-02-17 07:03] LABS: ANION GAP 14.1 (10.0-19.0); CALCIUM 9.5 mg/dL (8.5-10.5); CHLORIDE 97 mMol/L (96-110); CO2 29 mMol/L (22-32); CREATININE 0.3 mg/dL (0.5-1.1); ESTIMATED GFR (MDRD EQUATION) > 60; POTASSIUM 4.1 mMol/L (3.7-5.1); SODIUM 136 mMol/L (135-145)
[2017-02-17 07:09] LABS: BLOOD UREA NITROGEN 7 mg/dL (6-24)
--- NOTE | 2017-02-17 17:34 | NUR ---
Significant Event: PT UP AND SHOWERED THIS AM, FEELS BETTER. CAN MOVE FOOT AND LIFT IT OFF THE BED SOME. ACCU CHECKS ELEVATED [id number]. PT HAS AN ORDER THAT SHE CAN MOVE TO [facility]SU IF NEEDED. DILAUDID X2 FOR BACK AND LEG PAIN, WITH RELIEF. VERY PLEASENT AND COOPERATIVE WITH CARES Follow up: MONITOR
--- NOTE | 2017-02-18 04:33 | NUR ---
Significant Event: A/O X 3, ABMBULATES 1 ASSIST WITH WALKER/GAIT-BELT. HR WAS IN THE 100'S BUT AFTER HS MEDS IT HAS DROPPED AND REMIANED IN THE 80'S. SBP 100'S TO 120'S, AFEBRILE. ALL OTHER VSS. NO COMPLICATIONS DURING SHIFT. HAVE BEEN KEEPING CONTROLL OF THE PAIN BY GIVING PO DILAUDID EVERY 4 HOURS WHICH HAS BEEN WORKING WELL. NO COMPLAINTS OR COMPLICATIONS DURING SHIFT. Follow up:
[2017-02-18 06:22] LABS: ANION GAP 10.4 (10.0-19.0); POTASSIUM 4.4 mMol/L (3.7-5.1)
--- NOTE | 2017-02-18 10:28 | NUR ---
A-SCREENED D/T LOS NEWLY DX W/MELANOMA W/THE METS HT: 63 IN. WT: 66.7 KG. BMI: 26.0. PT WAS ADMITTED EARLY IN THE MONTH, AND DURING THAT ADMISSION PT REPORTED A 40 LB WT LOSS SINCE OCT 2016. WT IS STABLE SINCE PREVIOUS ADMISSION. 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 N/V IMPROVED SINCE ADMIT. 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 I-START GLUCERNA BID AT BRK AND LUNCH TO PROVIDE ADDITIONAL NUTRIENTS M/E-GOAL: PO INTAKE >/=75% OF MEALS AND >/=50% OF SUPPLEMENT 1)F/U PO INTAKE, SUPPLEMENT, WT, AND POC IN 3-5 DAYS 2)ASSIST NEEDED
--- NOTE | 2017-02-18 16:23 | NUR ---
Significant Event: PT A/O, MOVING BETTER THAN EVEN YESTERDAY. AMBULATED TO HER BR BY HERSELF WITH WALKER. SITTING UP IN CHAIR MORE AND NOT NEEDING MANY PAIN MEDS. VERY PLEASENT AND COOPERATIVE WITH CARES. Follow up: PLAN FOR HER TO GO TO [facility] AFTER DISCHARGE.
--- NOTE | 2017-02-19 05:29 | NUR ---
Significant Event: A/0 X 3, PLEASANT AND COOPERATIVE WITH CARES. HR 60-80'S, SBP 100'S TO 120'S. AFEBRILE. AMBULATES 1 ASSIST WITH WALKER GAIT-BELT. HAVE BEEN GIVING PO DILAUDID Q 4 HOURS TO CONTROL PAIN. SHE HAS RESTED WELL THIS EVENING. Follow up: CONSULT WITH DR BOYD TODAY. PLAN TO GO WITH DAUGHTER AFTER DISCHARGE IN FUTURE.
[2017-02-19 05:33] LABS: BASOPHIL % 0.1 %; HEMATOCRIT 32.7 % (33.0-46.0); HEMOGLOBIN 10.1 g/dL (10.0-15.0); IMMATURE GRANULOCYTE # 0.3 K/uL (0.0-0.3); IMMATURE GRANULOCYTE % 3.2 %; LYMPHOCYTE # 0.7 K/uL (0.8-4.0); LYMPHOCYTE % 7.9 %; MCH 25.6 pg (27.0-34.0); MCHC 30.9 gm/dL (32.0-36.5); MCV 82.8 fl (83.0-98.0); MONOCYTE # 0.4 K/uL (0.0-1.0); MONOCYTE % 5.3 %; NEUTROPHIL # (ANC) 6.9 K/uL (1.8-7.8); NEUTROPHIL % 83.5 %; NRBC % 0 /100WBC (0-0.00); RBC 3.95 M/uL (3.50-5.50); RDW-CV 14.7 % (11.9-14.6); WBC 8.3 K/uL (4.0-11.0)
[2017-02-19 05:34] LABS: PLATELET COUNT 353 K/uL (150-450)
[2017-02-19 05:48] LABS: ALK PHOS 165 IU/L (33-138); ALT 27 IU/L (12-78); ANION GAP 11.5 (10.0-19.0); AST 24 IU/L (10-40); BLOOD UREA NITROGEN 14 mg/dL (6-24); CALCIUM 9.2 mg/dL (8.5-10.5); CHLORIDE 97 mMol/L (96-110); CO2 29 mMol/L (22-32); CREATININE 0.4 mg/dL (0.5-1.1); ESTIMATED GFR (MDRD EQUATION) > 60; POTASSIUM 4.5 mMol/L (3.7-5.1); SODIUM 133 mMol/L (135-145); TOTAL PROTEIN 6.3 g/dL (6.0-8.4)
[2017-02-19 05:49] LABS: TOTAL BILIRUBIN 0.2 mg/dL (0.0-1.5)
--- NOTE | 2017-02-19 11:30 | NUR ---
Met with pt at bedside per request from Palliative Care. Introduced myself and role, pt is open to visit and converses freely about her circumstances. Today feels some relief that difficult conversation with estranged has been dealt with, has some other friends and family she can count on for support. She is a little emotional when contemplating her diagnosis and uncertainty of future. States there is a meeting this afternoon with oncologist and will know more about next steps then. Will be available to follow up.
--- NOTE | 2017-02-19 14:12 | NUR ---
Social visit with Arabella. States she had a busy weekend with visitors but is doing well from what she can tell. She says that Dr. Rangel is working on short term disability paperwork for her right now and other than that she has no other needs. CM to continue to follow and assist. Plan is still for her to return home upon dismissal and have family help her out.
--- NOTE | 2017-02-19 19:12 | NUR ---
PATIENT TRANSFERED PER BED W/ RN AND NURSE AID TO MED SURG. REPORT CALLED TO SAM DAMIAN. REVIEWED ASSESSMENT, INCLUDING LAST VITALS, FALL RISK, LAST PAIN MEDICATIONS, SKIN ASSESSMENT. PATIENT A/O, USED CALL LIGHT APPROPRIATELY. REPO Q 2 HRS THIS SHIFT.
--- NOTE | 2017-02-20 03:40 | NUR ---
Pt. transferred to floor at 1820 from PCU. Pt. readmitted for DKA. Pt. alert and oriented x3. RA. VSS. Hx. of malignant melanoma with mets. Lesion on L) femur. Dr. Arellano on case - ordered to hold Lovenox and NPO after midnight. 1 assist with walker and gaitbelt. L) wrist IV 24G - Saline locked. PRN PO dilaudid every 4 hours per patient request. BS 219 at HS - gave additional 6 units with regular scheduled insulin. Pleasant and cooperative with all cares. Slept well throughout the night. DNR.
[2017-02-20 05:16] LABS: BASOPHIL % 0.1 %; HEMATOCRIT 33.3 % (33.0-46.0); HEMOGLOBIN 10.6 g/dL (10.0-15.0); IMMATURE GRANULOCYTE # 0.5 K/uL (0.0-0.3); IMMATURE GRANULOCYTE % 4.2 %; LYMPHOCYTE # 0.6 K/uL (0.8-4.0); LYMPHOCYTE % 5.8 %; MCH 25.9 pg (27.0-34.0); MCHC 31.8 gm/dL (32.0-36.5); MCV 81.2 fl (83.0-98.0); MONOCYTE # 0.7 K/uL (0.0-1.0); MONOCYTE % 6.2 %; MPV 9.5 fl (9.4-12.4); NEUTROPHIL # (ANC) 9.3 K/uL (1.8-7.8); NEUTROPHIL % 83.7 %; NRBC % 0 /100WBC (0-0.00); PLATELET COUNT 357 K/uL (150-450); RDW-CV 14.6 % (11.9-14.6)
[2017-02-20 05:31] LABS: ANION GAP 13.4 (10.0-19.0); BLOOD UREA NITROGEN 15 mg/dL (6-24); CHLORIDE 96 mMol/L (96-110); CO2 29 mMol/L (22-32); CREATININE 0.4 mg/dL (0.5-1.1); ESTIMATED GFR (MDRD EQUATION) > 60; MAGNESIUM 2.3 mg/dL (1.8-2.6); POTASSIUM 4.4 mMol/L (3.7-5.1); SODIUM 134 mMol/L (135-145)
--- NOTE | 2017-02-20 11:18 | NUR ---
Met with patient at bedside today. Re-introduced myself as I was her CM during her last stay on [facility]. Patient at this time denies any needs stating her plan is still to return home at discharge. She states her daughter in law will stay with her for one week once she is discharged. Consulted with Lori Louise APRN with Palliative Care and she states that patient is planning on proceeding with the hip surgery she just did not want it today as she needed more time to think about it. Per Lori at this time we do not know when she will have surgery because Dr. Arellano and Dr. Pablo were going to consult with each other on the case. Will continue to monitor and follow while here.
--- NOTE | 2017-02-20 18:04 | NUR ---
Significant Event: Patient is alert and orineted x3. VSS and on RA. Dilaudid given for pain x2, last at 1517. Aqua K pad placed under the right sholuder for pain as well- relief noted. Working with PT and OT. TTWB to the left leg. Did not have an operation today for Dr. Arellano but is planning on it for the future. IV to the L)Hand SL. No complications. Tele on, no calls. Accuchecks AC/HS. No complaints of chest tightness, but has an order for PRN tums. Started on pepcid daily vs PRN. Up with 1PA. Voiding okay. Cooperative with cares. Follow Up: Pain control, possible surgery in the future
--- NOTE | 2017-02-21 04:21 | NUR ---
Pt. alert and oriented. VSS. RA. 1-2 assist with transfers. Toe touch L) leg. Regular diet. L) wrist 24 G S.L. Pt. to possibly have surgery within next couple of days for lesion on L) femur. Horrible controlled pain this shift. PRN PO Dilaudid 4mg every 4 hours. Last dose at 0315. IV Dilaudid x2 this shift. 0.4ml last given at 0330. New order for fentanyl 25 mcg every 2 hours PRN pain with parameters. Gave x1 this shift. K-pad to R) Shoulder and L) Leg. BS 335 at 2100 - 12 units given with Levemir at HS. Pleasant and cooperative with all cares.
--- NOTE | 2017-02-21 13:34 | NUR ---
Significant Event: Patient has been having a lot of pain today--both in left hip and in right shoulder. From Dr. Arellano's standpoint a hip pinning needs to be done to stabilze the bone. From Dr. Pablo's standpoint we are awaiting more test results and then will formulate a plan. Patient wanting to talk with her daughters first. Pain medication changed per Dr. Newman. Dilauid PO will be every 3 hours scheduled. Nucynta will be added every 8 hours scheduled. Dilaudid IV will be changed but unsure what the dose and time frame will be. Patient given Dilaudid IV 1 mg and Dilaudid 4 mg PO at 1313 and 1324 respectively. Levemir held as patient not eating anything. Dr. Newman aware of this. Blood pressure too low to give cardizem at 1320 so dose was held. Follow up: Continue to monitor. Patient wanting to talk about options with daughters.
--- NOTE | 2017-02-21 15:10 | NUR ---
A - NUTRITION FOLLOW-UP. POSSIBLE SURGERY TO L) FEMUR IN A COUPLE OF DAYS PER SHIFT REPORT. PAIN ISSUE AFFECT APPETITE. NOT FEELING WELL TODAY. WEIGHT STABLE. LABS: NA 134, GLU 184, CREA 0.4, ALB 2.0, CRP 14.5 MEDS: DECADRON, PEPCID, LEVEMIR ADJUSTED. DIET: CONSISTENT CARB W/ GLUCERNA BID. INTAKE 60% X9 MEALS. PATIENT REPORTED APPETITE USUALLY GOOD BUT NOT TODAY, PAIN ISSUE. DISLIKES GLUCERNA. DISCUSSED LIKES AND DISLIKES. EST NEEDS: [id number] KCAL, 80-107 GRAMS PROTEIN, FLUID NEEDS: 1ML/KCAL D - INADEQUATE ORAL INTAKE RELATED TO DECREASED APPETITE SECONDARY TO PAIN ISSUE EVIDENCED BY PO 60% X9 MEALS AND PATIENT REPORT. I - WILL CHANGE GLUCERNA TO CIB 2X/DAY, HIGH PROTEIN SNACK ONCE DAILY. M/E - GOAL: PATIENT WILL BE ABLE TO TOLERATE >65% OF MEALS AND AT LEAST ONE ORAL SUPPLEMENT/SNACK PER DAY IN 4-6 DAYS.
--- NOTE | 2017-02-21 16:03 | NUR ---
Met with Lori Louise APRN Palliative care today and discussed patient. Patient is in a lot of pain today so Lori was adjusting her medications. I informed Lori that I gave the patient an Advanced Directive yesterday and told the patient that either Lori or I can help her fill the form out. I chose not to meet with patient today after talking with Lori due to the level of pain patient is experiencing. Lori did voice concerns about the Advanced Directive because it sounds like patient does not want to list her as her medical POA. Will discuss this with the patient tomorrow.
--- NOTE | 2017-02-22 04:19 | NUR ---
Pt. alert and oriented. RA. VSS - low BP at times. Held HS BP med. 1-2 assist with transfers. Uses bedside commode due to extreme weakness. TTWB L) leg. ADA diet. L) Wrist 24G with SALES COACH running. SALES COACH continuous. 0.1mg/hour, demand 0.2mg/hr, 15 min. lockout. Possible surgery on L) hip for lesion. Pain mostly in leg and right shoulder. Pain controlled better this shift after SALES COACH started late last shift. Appetite decreased. Held levimir and sliding scale insulin at HS. ACHS accuchecks. called and said to change Levimir to 15units BID and change sliding scale to mild. Pt. cooperative with all cares.
[2017-02-22 05:49] LABS: BASOPHIL % 0.2 %; HEMATOCRIT 38.7 % (33.0-46.0); HEMOGLOBIN 12.2 g/dL (10.0-15.0); IMMATURE GRANULOCYTE # 0.5 K/uL (0.0-0.3); IMMATURE GRANULOCYTE % 3.7 %; LYMPHOCYTE # 0.6 K/uL (0.8-4.0); LYMPHOCYTE % 4.5 %; MCH 25.7 pg (27.0-34.0); MCHC 31.5 gm/dL (32.0-36.5); MCV 81.6 fl (83.0-98.0); MONOCYTE # 0.7 K/uL (0.0-1.0); MONOCYTE % 5.6 %; MPV 9.5 fl (9.4-12.4); NRBC % 0 /100WBC (0-0.00); PLATELET COUNT 316 K/uL (150-450); RBC 4.74 M/uL (3.50-5.50); RDW-CV 15.5 % (11.9-14.6); WBC 12.8 K/uL (4.0-11.0)
[2017-02-22 06:09] LABS: ANION GAP 16.6 (10.0-19.0); BLOOD UREA NITROGEN 15 mg/dL (6-24); CALCIUM 9.2 mg/dL (8.5-10.5); CHLORIDE 91 mMol/L (96-110); CO2 28 mMol/L (22-32); CREATININE 0.5 mg/dL (0.5-1.1); ESTIMATED GFR (MDRD EQUATION) > 60; POTASSIUM 4.6 mMol/L (3.7-5.1); SODIUM 131 mMol/L (135-145)
[2017-02-22 06:12] LABS: MAGNESIUM 2.7 mg/dL (1.8-2.6)
[2017-02-22 09:19] LABS: BILIRUBIN URINE NEGATIVE (NEGATIVE); BLOOD URINE NEGATIVE /UL (NEGATIVE); COLOR URINE YELLOW (YELLOW); GLUCOSE URINE 100 mg/dL (NEGATIVE); KETONE URINE NEGATIVE (NEGATIVE); LEUKOCYTES URINE 25 /UL (NEGATIVE); NITRITE URINE NEGATIVE (NEGATIVE); PH URINE 6.5 (4.0-8.0); PROTEIN URINE NEGATIVE (NEGATIVE); TURBIDITY URINE CLEAR (CLEAR); UROBILINOGEN URINE 1 mg/dL (NORMAL)
[2017-02-22 09:26] LABS: RBC URINE NEGATIVE #/HPF (NEGATIVE)
[2017-02-22 09:27] LABS: AMORPHOUS URINE 1+ (NEGATIVE); BACTERIA URINE MANY (NEGATIVE)
--- NOTE | 2017-02-22 13:36 | NUR ---
Spoke with Lori Louise APRN Palliative care and patient is having surgery this afternoon on her hip. Lori is going to help her complete the Advanced Directive, but she is going to use the shorter version that Lori has vs the Advanced Directive Booklet.
--- NOTE | 2017-02-22 19:18 | NUR ---
Patient is alert and oriented, slightly hypotensive. Weight bearing as tolerated to L) leg. Went down for surgery around 1400 and returned at 1745. 3 incision sites with mepilex dressings are clean, dry and intact. She was given Ketamine so is still really groggy. Dilaudid PORTER BATH at 0.1mg continuous, 0.2mg demand with a 15 minute lockout. She has a large area on her back were melanoma was removed years ago. ACHS accucheck, gave 4 units for breakfast and 6 for lunch. UA was collected this am. Continue to monitor pain.
--- NOTE | 2017-02-23 04:25 | NUR ---
Significant Event: PATIENT IS ALERT AND ORIENTED. SURGICAL INCISIONS X3 TO LEFT LATERAL LEG/HIP. MIDDLE DRESSING HAS SHADDOWING. PATIENT COMPLAINS OF SEVERE PAIN TO THE LEFT LEG AND REFUSES TO BE REPOSITIONED AND REFUSES FOR THAT LEG TO BE MOVED. PATIENT HAS DILAUDID MASTER PLANNER 0.1MG CONT., 0.2MG DEMAND 15 MINUTE LOCKOUT. 06/09 ADMINISTERED. BP RUNS LOW, 90'S-100'S SYSTOLIC. ON 2L O2. PATIENT WAS UNABLE TO VOID S/P SURGERY. STRAIGHT CATH PERFORMED AT 2330 WITH 800ML OUTPUT. D51/2 20KCL INFUSING TO RIGHT WRIST AT 125ML/HR. ACCU CHECKS ACHS. HS BG OF 281. MILD CORRECTIONAL SCALE. NEURO CHECKS Q2H X24 HOURS S/P PROCEDURE. Follow up:
[2017-02-23 04:39] LABS: HEMATOCRIT 32.1 % (33.0-46.0); HEMOGLOBIN 10.2 g/dL (10.0-15.0); MCH 25.9 pg (27.0-34.0); MCHC 31.8 gm/dL (32.0-36.5); MCV 81.5 fl (83.0-98.0); MPV 9.9 fl (9.4-12.4); RBC 3.94 M/uL (3.50-5.50); RDW-CV 15.1 % (11.9-14.6); WBC 10.8 K/uL (4.0-11.0)
[2017-02-23 04:43] LABS: PLATELET COUNT 240 K/uL (150-450)
[2017-02-23 04:53] LABS: BLOOD UREA NITROGEN 12 mg/dL (6-24); CALCIUM 8.7 mg/dL (8.5-10.5); CHLORIDE 94 mMol/L (96-110); CO2 27 mMol/L (22-32); CREATININE 0.4 mg/dL (0.5-1.1); ESTIMATED GFR (MDRD EQUATION) > 60; SODIUM 131 mMol/L (135-145)
[2017-02-23 05:02] LABS: ANION GAP 14.7 (10.0-19.0); MAGNESIUM 2.3 mg/dL (1.8-2.6); POTASSIUM 4.7 mMol/L (3.7-5.1)
[2017-02-23 05:20] LABS: ABSOLUTE NEUTROPHIL CT (ANC) 9.2 K/uL (1.8-7.8); BANDED NEUTROPHIL # 0.5 K/uL (0.0-0.1); BANDED NEUTROPHILS % 5 %; LYMPHOCYTE % 9 %; MONOCYTE # 0.3 K/uL (0.0-1.0); SEGMENTED NEUTROPHIL # 8.6 K/uL (1.8-7.8); SEGMENTED NEUTROPHIL % 80 %
--- NOTE | 2017-02-23 11:59 | NUR ---
Met with Lori Louise this morning discussed if she was able to complete the Advanced Directive with patient. Lori states she was not able to meet with patient because she went to surgery 2 hours ahead of time yesterday. Today she appears to be feeling better. Per Lori there is a chance she will be able to discharge today. Patient was busy with therapy when I attempted to meet her this morning will go back and attempt to see her later.
--- NOTE | 2017-02-23 13:20 | NUR ---
Followed up with patient and her daughter related to discharge for director long term care Fernanda. They were wondering about the cost of a hospital bed for home use. Called [facility] and got quotes for full electric and semi. DME business hesitant to bill patient insurance as they are difficult to deal with. Gave info to patient. Then they wondered about skilled benefits. Called [employer] and spoke to Alethea. Requires pre-auth, in network deductible is $2000 and out of pocket max is $4000. Once deductible meet they would own 20% each day to the SNF. In network per [facility] is [facility]. They are not accepting patients over the holiday weekend so would have to start the referral process on Sunday. They voiced understanding. They will talk it over with the rest of the family. If patient is still here Sunday Fernanda will followup with them. We did talk about HHC. Daughter can call customer service and check on that benefit.
--- NOTE | 2017-02-23 15:37 | NUR ---
Significant Event: Pt c/o intermittent left hip and right shoulder pain, partial relief wtih SUPERVISOR ASSEMBLING. systolic bp in upper 90's this shift. Up in chair for a few hours and to commode x3 with 2 assist. Dressings x3 to left hip/thigh intact with mod amt of old shadow drainage. Good csm's. MOM given x1, no bm yet. Voiding well. Lidocaine patch applied to right posterior shoulder. Tele on, no calls. Regular diet but not eating much at all. Dc'd IV fluids but has NS at TKO with SUPERVISOR ASSEMBLING. PT/OT working with pt. Follow up:
[2017-02-24 02:09] LABS: BASOPHIL % 0.1 %; IMMATURE GRANULOCYTE # 0.4 K/uL (0.0-0.3); IMMATURE GRANULOCYTE % 2.9 %; LYMPHOCYTE % 6.3 %; MCV 81.5 fl (83.0-98.0); MONOCYTE # 1.2 K/uL (0.0-1.0); MPV 10.3 fl (9.4-12.4); NEUTROPHIL # (ANC) 12.4 K/uL (1.8-7.8); NEUTROPHIL % 82.7 %; NRBC % 0 /100WBC (0-0.00); PLATELET COUNT 221 K/uL (150-450); RBC 2.97 M/uL (3.50-5.50); RDW-CV 15.3 % (11.9-14.6)
[2017-02-24 02:10] LABS: HEMATOCRIT 24.2 % (33.0-46.0); HEMOGLOBIN 7.6 g/dL (10.0-15.0); MCH 25.6 pg (27.0-34.0); MCHC 31.4 gm/dL (32.0-36.5)
[2017-02-24 04:35] LABS: BASOPHIL % 0.1 %; IMMATURE GRANULOCYTE # 0.3 K/uL (0.0-0.3); IMMATURE GRANULOCYTE % 2.6 %; LYMPHOCYTE # 0.7 K/uL (0.8-4.0); LYMPHOCYTE % 6.3 %; MCV 81.7 fl (83.0-98.0); MONOCYTE % 8.1 %; MPV 10.1 fl (9.4-12.4); NEUTROPHIL # (ANC) 9.8 K/uL (1.8-7.8); NEUTROPHIL % 82.9 %; NRBC % 0 /100WBC (0-0.00); RBC 3.06 M/uL (3.50-5.50); RDW-CV 15.3 % (11.9-14.6); WBC 11.8 K/uL (4.0-11.0)
[2017-02-24 04:36] LABS: HEMOGLOBIN 7.8 g/dL (10.0-15.0); MCH 25.5 pg (27.0-34.0); MCHC 31.2 gm/dL (32.0-36.5); PLATELET COUNT 160 K/uL (150-450)
[2017-02-24 04:54] LABS: BLOOD UREA NITROGEN 11 mg/dL (6-24); CHLORIDE 101 mMol/L (96-110); CO2 26 mMol/L (22-32); CREATININE 0.4 mg/dL (0.5-1.1); ESTIMATED GFR (MDRD EQUATION) > 60; MAGNESIUM 2.1 mg/dL (1.8-2.6); SODIUM 134 mMol/L (135-145)
--- NOTE | 2017-02-24 07:14 | NUR ---
Significant Event:pt is on a dilaudid pharmacy consultant with 0.1 mg continuous, 0.2 mg demand w/ 15min lockout. pt had 7 demands and 7 deliveries this shift. pt has been hypotensive with sbp in the 80-90s. pt has been on tele, got a call that pt was having hr jumping up to 135 numerous times and susstaing for short periods of time. pt vitals were obtained and pt found to have 100.5 temp, was able to lower temp to 99.5 with use of incentive spirometer. pt had a total of 3 1000ml ns bolusus during the night but preasures and map remained low. hr did come down to low 100's. pt has 3 dressings to l hip/leg from surgery on that removed a tumor from the femur. iv to r wrist has good blood return. pt recieved 1 dose of vancomyacin, started on zosyn and levequin. accuchecks ac/hs, bs was 249. pt is a 2 assist, having lots of pain to l leg. also c/opain to r shoulder, will have lidocaine patche due @ 0900 this am. Follow up:
--- NOTE | 2017-02-24 07:32 | NUR ---
D: Got report from shift stacker that pt was hypotensive and tachycardiac, see shift stacker note. @ 0645 bp was 79/46, pulse 102, 93% on room air, 16 respirations and 99.2. That was after several IVF boluses. Dr. Mendez here and ordered pt to move to ICU. Got an order for wakefield, placed at 0655. Pt moved to ICU at 0715. Pt is attempting to call family but no answer at this time. pt a/o x3. Dilaudid FREIGHT LOADER 0.1 continous, 0.2 demand, 15 min lockout. Dressings to left leg d/i.
--- NOTE | 2017-02-24 08:21 | NUR ---
A - NUTRITION F/U. ON RA. NO EDEMA. NA+ 134, GLU 97, BUN/[place] 11/0.4. DIET: REGULAR, INTAKE POOR SINCE SURGERY. D - AT RISK W/ INADEQUATE ORAL INTAKE R/T DECREASED APPETITE AEB INTAKE RECORD. I - GOAL: 50% OR BETTER INTAKE BY NEXT REVIEW. M/E - 1) WILL OFFER ENSURE TID W/ MEALS AND F/U IN 2-4 DAYS.
[2017-02-24 09:26] LABS: HEMOGLOBIN 8.2 g/dL (10.0-15.0)
[2017-02-24 10:25] LABS: BILIRUBIN URINE NEGATIVE (NEGATIVE); BLOOD URINE 10 /UL (NEGATIVE); COLOR URINE YELLOW (YELLOW); GLUCOSE URINE NEGATIVE (NEGATIVE); KETONE URINE NEGATIVE (NEGATIVE); LEUKOCYTES URINE NEGATIVE /UL (NEGATIVE); NITRITE URINE NEGATIVE (NEGATIVE); PROTEIN URINE NEGATIVE (NEGATIVE); TURBIDITY URINE CLEAR (CLEAR); UROBILINOGEN URINE NORMAL (NORMAL)
[2017-02-24 10:32] LABS: BACTERIA URINE NEGATIVE (NEGATIVE); EPITHELIAL URINE NEGATIVE #/HPF (NEGATIVE); RBC URINE RARE #/HPF (NEGATIVE); WBC URINE NEGATIVE #/HPF (NEGATIVE)
--- NOTE | 2017-02-24 19:49 | NUR ---
Significant Event: Patient is A/O x3. Hypotensive, on arjun gtt to keep MAPS >65. Lung sounds clear/ dim, 94% RA. Hypoactive bowel sounds, Mirlax given; no results. Patient has dressing to left leg for hip pinning; reports numbness on thigh from block. Dilaudid ORE BRIDGE OPERATOR 0.1 continuous, 0.1 demand, 15 min lockouts. Patient has history of melanoma, which metatasis to bones, lymph nodes, and liver. Follow up: Continue.
[2017-02-25 05:36] LABS: BASOPHIL % 0.1 %; EOSINOPHIL % 0.1 %; HEMATOCRIT 24.7 % (33.0-46.0); HEMOGLOBIN 7.9 g/dL (10.0-15.0); IMMATURE GRANULOCYTE # 0.5 K/uL (0.0-0.3); IMMATURE GRANULOCYTE % 3.1 %; LYMPHOCYTE # 1.4 K/uL (0.8-4.0); LYMPHOCYTE % 9.4 %; MCH 25.7 pg (27.0-34.0); MCV 80.5 fl (83.0-98.0); MONOCYTE # 1.2 K/uL (0.0-1.0); MONOCYTE % 8.3 %; NEUTROPHIL # (ANC) 11.6 K/uL (1.8-7.8); NRBC % 0 /100WBC (0-0.00); PLATELET COUNT 223 K/uL (150-450); RBC 3.07 M/uL (3.50-5.50); RDW-CV 15.5 % (11.9-14.6); WBC 14.7 K/uL (4.0-11.0)
--- NOTE | 2017-02-25 05:49 | NUR ---
Significant Event: Patient alert and oriented x3. Still states she has a small area from inner left thigh to inner left knee down that is numb but is improving. Mepilex x3 to left hip/leg intact with some shadow drainage. Forrest with great output. Boris gtt remains on to keep MAPs>65. Left and right PIVs running antbxs, fluids and dilaudid MULTIMEDIA PRODUCER. POA paper on chart. Pleasant/cooperative with cares Follow up: wean boris
[2017-02-25 05:59] LABS: BLOOD UREA NITROGEN 6 mg/dL (6-24); CALCIUM 8.1 mg/dL (8.5-10.5); CHLORIDE 99 mMol/L (96-110); CO2 22 mMol/L (22-32); CREATININE 0.2 mg/dL (0.5-1.1); ESTIMATED GFR (MDRD EQUATION) > 60
[2017-02-25 06:00] LABS: ANION GAP 15.2 (10.0-19.0); POTASSIUM 4.2 mMol/L (3.7-5.1); SODIUM 132 mMol/L (135-145)
--- NOTE | 2017-02-25 18:51 | NUR ---
SIGNIFICANT EVENT: PATIENT IS A/O X3. HYPOTENSIVE ON ERIC GTT TO KEEP MAPS>65. LUNG SOUNDS HAVE BEEN CLEAR/DIM, 96% RA. HYPOACTIVE BOWEL SOUNDS; MIRLAX AND COLACE GIVEN, NO RESULTS. PATIENT HS DRESSING TO LEFT LEF FOR HIP PINNING; REPORTS A DULLNES ABOVE KNEE. ON BARREL RAISER HELPER 0.1 CONTINUOUS, 0.1 DEMAND, 8MIN LOCKOUT.
[2017-02-26 05:23] LABS: BASOPHIL % 0.1 %; EOSINOPHIL % 0.1 %; HEMATOCRIT 22.8 % (33.0-46.0); IMMATURE GRANULOCYTE # 0.4 K/uL (0.0-0.3); IMMATURE GRANULOCYTE % 3.7 %; LYMPHOCYTE # 1.3 K/uL (0.8-4.0); LYMPHOCYTE % 10.4 %; MCH 25.7 pg (27.0-34.0); MCV 80.3 fl (83.0-98.0); MONOCYTE # 0.9 K/uL (0.0-1.0); MONOCYTE % 7.2 %; MPV 9.9 fl (9.4-12.4); NEUTROPHIL # (ANC) 9.4 K/uL (1.8-7.8); NEUTROPHIL % 78.5 %; NRBC % 0 /100WBC (0-0.00); PLATELET COUNT 240 K/uL (150-450); RBC 2.84 M/uL (3.50-5.50); RDW-CV 15.4 % (11.9-14.6)
--- NOTE | 2017-02-26 05:27 | NUR ---
A/Ox3. SR with HR 70-110s. Continues on Boris gtt to keep MAPs >65. Afebrile. No BM this shift. Continues on Dilaudid HEALTH SAFETY MANAGER for pain control. Follow up: Wean Boris
[2017-02-26 05:29] LABS: ANION GAP 13.6 (10.0-19.0); BLOOD UREA NITROGEN 8 mg/dL (6-24); CALCIUM 8.3 mg/dL (8.5-10.5); CHLORIDE 102 mMol/L (96-110); CO2 24 mMol/L (22-32); CREATININE 0.3 mg/dL (0.5-1.1); ESTIMATED GFR (MDRD EQUATION) > 60; MAGNESIUM 1.9 mg/dL (1.8-2.6); POTASSIUM 3.6 mMol/L (3.7-5.1); SODIUM 136 mMol/L (135-145)
[2017-02-26 05:41] LABS: HEMOGLOBIN 7.3 g/dL (10.0-15.0)
[2017-02-26 10:40] LABS: HEMATOCRIT 22.6 % (33.0-46.0); HEMOGLOBIN 7.1 g/dL (10.0-15.0)
--- NOTE | 2017-02-26 17:32 | NUR ---
Significant Event: Alert and oriented. Boris-Synephrine weaned off keeping MAP >65. 1 unit PRBC given. Up to chair and able to take few steps with 2PA, walker, and gait belt. No bowel movement this shift. HIGH SCHOOL FOOTBALL COACH changed to continous only; pain continues to be controlled adequately. Follow up: continue
--- NOTE | 2017-02-27 05:31 | NUR ---
A/Ox3. SR with HR 70-100s. Remains off Boris gtt. MAPs mid 50-mid 70s. Dopamine started but quickly stopped when patient converted to AFib, then switched to midodrine PO BID. Converted back to SR shortly after. Continues on RA. BM x1 this shift with no occult blood following hematest. Percocet given x2 for pain control. Follow up: Transfer
[2017-02-27 05:58] LABS: CREATININE 0.3 mg/dL (0.5-1.1); ESTIMATED GFR (MDRD EQUATION) > 60
[2017-02-27 10:36] LABS: EOSINOPHIL % 0.1 %; HEMATOCRIT 23.7 % (33.0-46.0); HEMOGLOBIN 7.8 g/dL (10.0-15.0); IMMATURE GRANULOCYTE # 0.3 K/uL (0.0-0.3); LYMPHOCYTE % 12.2 %; MCH 26.8 pg (27.0-34.0); MCHC 32.9 gm/dL (32.0-36.5); MCV 81.4 fl (83.0-98.0); MONOCYTE # 0.6 K/uL (0.0-1.0); MONOCYTE % 7.5 %; MPV 10.1 fl (9.4-12.4); NEUTROPHIL # (ANC) 6.4 K/uL (1.8-7.8); NEUTROPHIL % 77.2 %; NRBC % 0 /100WBC (0-0.00); PLATELET COUNT 184 K/uL (150-450); RBC 2.91 M/uL (3.50-5.50); RDW-CV 15.2 % (11.9-14.6); WBC 8.3 K/uL (4.0-11.0)
[2017-02-27 10:55] LABS: ANION GAP 15.5 (10.0-19.0); BLOOD UREA NITROGEN 8 mg/dL (6-24); CALCIUM 8.4 mg/dL (8.5-10.5); CHLORIDE 106 mMol/L (96-110); CO2 22 mMol/L (22-32); CREATININE 0.4 mg/dL (0.5-1.1); ESTIMATED GFR (MDRD EQUATION) > 60; SODIUM 139 mMol/L (135-145)
[2017-02-27 10:56] LABS: POTASSIUM 4.5 mMol/L (3.7-5.1)
--- NOTE | 2017-02-27 17:55 | NUR ---
Met with patient at bedside in ICU. She was not feeling well as the pain medication was making her nauseated and not controlling the pain well. Nurses were aware of this. I briefly reminded her that I will assist with discharge needs when we get closer to that. Will try to meet with her tomorrow to see if the family checked on SNF benefits for her. No family was with patient this afternoon.
--- NOTE | 2017-02-27 18:18 | NUR ---
Significant Event: Alert and oriented. Vital signs stable, although BP is marginal. C/O dizziness and nausea this AM, which pt attributes to Percocet. Up to commode several times with 2PA, walker, and gait belt. Continued to be unable to void with painful distention, so straight cath repeated this afternoon and wakefield catheter inserted this evening. Has had several visitors today. Follow up: continue
--- NOTE | 2017-02-28 05:39 | NUR ---
Significant Event: Patient A/O x3, c/o occ L) leg pain, sched Dilaudid given. C/O nausea, very small emesis x2 this shift. States it is caused by the ordered Golytely, refuses to finish remainder. Dr Haro notified. PRN Zofran given x1 with no relief. N.O. obtained for PRN Reglan, given x1, states relief. Clear liquid diet, refused dinner. Poor appetite. Held HS Eusebio for BS 103. Follow up: Continue to monitor.
--- NOTE | 2017-02-28 12:00 | NUR ---
A-NUTRITION F/U COLONSCOPY PLANNED FOR TODAY, THEN TRANSFER OUT OF ICU N/V; PER PT THIS IS IMPROVING VISTED W/PT AND SHE DID NOT LIKE THE ENSURE ENLIVE, BUT HAS TRIED THE CIB AND LIKES THAT. SHE HAS BEEN GETTING THE CIB BID; WILL CHANGE TO TID AND MOVE HER YOGURT TO AM SNACK; PT AGREEABLE TO THIS PLAN. LABS: NA 139, K+ 4.5, GLU 99, BUN 8, NETWORK CONTROL OPERATORS SUPERVISOR 0.4 MEDS: REGLAN, DILAUDID, LEVEMIR, PROAMATINE, ZOSYN, LEVAQUIN DIET RX: NPO. PO INTAKE PRIOR TO NPO STATUS WAS REF-75%. EST NUTR NEEDS: [id number] KCALS AND 80-107 GM PROTEIN D-AT NUTRITION RISK W/INADEUQATE INTAKE OF NUTRIENTS R/T POOR APPETITE AEB INTAKE RECORDS, PT REPORT. I-1)CHANGE CIB TO TID W/MEALS 2)CHANGE YOGURT FROM QD AT LUNCH TO QD AT AM SNACK M/E-GOAL: PO INTAKE >/=50% BY NEXT F/U 1)F/U PO INTAKE, SUPPLEMENT, AND POC IN 3-5 DAYS 2)ASSIST NEEDED
--- NOTE | 2017-02-28 14:15 | NUR ---
SIGNIFICANT EVENT: PATIENT ALERT, ORIENTED X3. OPENS EYES SPONTANEOUSLY AND TO VOICE. PUPILS EQUAL AND REACTIVE. PATIENT MOVES ALL 4 EXTREMITIES SPONTANEOUSLY AND TO COMMANDS. EQUAL STRENGTH THROUGHOUT. AMBULATES WITH 2 PERSON ASSIST, GAITBELT, AND WALKER. PATIENT DENIES HEADACHES, CHEST PAIN, NUMBNESS, OR TINGLING. PATIENT HAS BEEN IN SINUS RHYTHM, BBB, HR 90-110S. PULSES PALPABLE THROUGHOUT. BP STABLE, SBP 99, MAP>65. AFEBRILE. PATIENT IS ON ROOM AIR, SATS MID TO UPPER 90S. SPONT. COUGH, NON PRODUCTIVE. TURN, COUGH, DEEP BREATHING ENCOURAGED. BOWEL SOUNDS PRESENT, LIQUID BOWEL MOVEMENTS. TO ENDOSCOPY AT 1245. GERARD INTACT, ADEQUATE URINE OUTPUT. ACCU CHECKS AC AND HS NO INSULIN GIVEN, LEVIMIR HELD THIS AM PER MD ORDER. PATIENT REPOSITIONED EVERY 2 HOURS MINIMALLY. NS AT 75ML/HR INFUSING. PIV X2 NO COMPLICATIONS. FOLLOW UP: CONTINUE TO MONITOR
--- NOTE | 2017-02-28 15:15 | NUR ---
NO CHANGES SINCE SHIFT SUMMARY. TRANSFERED TO PCU. ALL BELONGINGS SENT WITH PATIENTS. PATIENT ALERT AND ORIENTED. MOVES ALL 4 EXTREMTIES. FAMILY AT BEDSIDE. BEDSIDE REPORT AND SKIN ASSESSED AT BEDSIDE. TY, WALL TAPER HELPER TOOK OVER CARES AT THIS TIME.
--- NOTE | 2017-02-28 17:06 | NUR ---
Significant Event: A/OX3, VSS ON ROOM AIR. NO COMPLAINTS OF PAIN, BUT PT. IS ON SCHEDULED 2mg OF PO DILAUDID Q4HR, LAST GIVEN AT 1530. SLIV TO L)FA, R)FA HAS NS @ 75mL/HR WITH ZOSYN. PT. GETS UP 2 ASSIST. PT. WENT DOWN FOR EGD/COLONSCOPY TODAY, EGD SHOWED SOME LESIONS & COLON COULDN'T BE DONE D/T PREP NOT GOOD ENOUGH TO SEE. GERARD INTACT, YELLOW URINE. L)HIP DRESSING HAS SCANT AMOUNT OF DRAINAGE TO MEPILEX & IS INTACT, L)LATERAL MEPILEX DRESSINGS X2 ARE C/D/I. ZOFRAN GIVEN X1 THIS AFTERNOON FOR NAUSEA, PT. HAS EATEN SOME JELLO. CAN ADVANCE DIET TOLERATED. Follow up: CONTINUE WITH POC.
--- NOTE | 2017-03-01 04:54 | NUR ---
Significant Event: PATIENT IS A/O X3. VSS. HR 90-100'S. SBP 100'S. AFEBRILE. 02 SATS IN MID 90'S ON RA. C/O CONSTANT/CHRONIC PAIN TO RIGHT SHOULDER LIKELY R/T CANCER/CHEMO PAIN. ROMARIO DILAUDID GIVEN AND IVP DILAUDID GIVEN X1 WITH SOME RELIEF. LUNGS CLEAR TO CLEAR/DIM. UP WITH 2A WITH WALKER/GB TO BEDSIDE COMMODE. BOWELS ACTIVE. LOOSE BM X1. GERARD INTACT WITH 1400 ML UOP. HAS MULTIPLE DRESSINGS. MEPILEX TO LEFT HIP WITH MODERATE AMOUNT OF DRAINAGE TO BE CHANGED BY PHYSICIAN/PA TODAY. 2 DIFFERENT MEPILEX DRESSING TO LEFT LATER LEG BOTH C/D/I WITH SCANT AMOUNT OF DRAINAGE. IV TO RIGHT FORARM WITH NS AT 75 ML/HR AND ON INTERMITTENT IV ABX. ON ACHS ACCUCHECKS. Follow up: CONTINUE TO MONITOR PER PLAN OF CARE.
[2017-03-01 05:10] LABS: BASOPHIL % 0.2 %; EOSINOPHIL % 0.1 %; HEMATOCRIT 24.2 % (33.0-46.0); IMMATURE GRANULOCYTE # 0.4 K/uL (0.0-0.3); IMMATURE GRANULOCYTE % 4.8 %; LYMPHOCYTE # 0.8 K/uL (0.8-4.0); LYMPHOCYTE % 9.3 %; MCH 27.1 pg (27.0-34.0); MCHC 32.2 gm/dL (32.0-36.5); MONOCYTE # 0.5 K/uL (0.0-1.0); MONOCYTE % 6.3 %; MPV 9.7 fl (9.4-12.4); NEUTROPHIL # (ANC) 6.7 K/uL (1.8-7.8); NEUTROPHIL % 79.3 %; NRBC % 0 /100WBC (0-0.00); PLATELET COUNT 176 K/uL (150-450); RBC 2.88 M/uL (3.50-5.50); RDW-CV 16.2 % (11.9-14.6); WBC 8.5 K/uL (4.0-11.0)
[2017-03-01 05:20] LABS: HEMOGLOBIN 7.8 g/dL (10.0-15.0)
[2017-03-01 05:32] LABS: ANION GAP 10.5 (10.0-19.0); BLOOD UREA NITROGEN 5 mg/dL (6-24); CALCIUM 8.6 mg/dL (8.5-10.5); CHLORIDE 101 mMol/L (96-110); CO2 28 mMol/L (22-32); CREATININE 0.3 mg/dL (0.5-1.1); ESTIMATED GFR (MDRD EQUATION) > 60; POTASSIUM 3.5 mMol/L (3.7-5.1); SODIUM 136 mMol/L (135-145)
--- NOTE | 2017-03-01 10:47 | NUR ---
Stopped by to visit with Arabella this morning. Her RN Alta reports that "we got behind on pain medications so she is pretty tired this morning." I let Arabella know I was going to continue to follow and assist while she was over on PCU. She voiced understanding to this. Let her know I would come back later when she was feeling a bit better. CM to continue to follow and assist.
--- NOTE | 2017-03-01 19:05 | NUR ---
PATIENT UP TO CHAIR WITH 2 ASSIST. PAIN CONTROL PROBLEMS THIS SHIFT. REVIEWED WITH PALLIATIVE CARE.
[2017-03-02 03:29] LABS: HEMATOCRIT 24.3 % (33.0-46.0)
[2017-03-02 03:30] LABS: HEMOGLOBIN 7.8 g/dL (10.0-15.0)
[2017-03-02 03:45] LABS: ANION GAP 12.3 (10.0-19.0); BLOOD UREA NITROGEN 5 mg/dL (6-24); CALCIUM 8.7 mg/dL (8.5-10.5); CHLORIDE 99 mMol/L (96-110); CO2 27 mMol/L (22-32); CREATININE 0.3 mg/dL (0.5-1.1); ESTIMATED GFR (MDRD EQUATION) > 60; MAGNESIUM 2.1 mg/dL (1.8-2.6); POTASSIUM 4.3 mMol/L (3.7-5.1); SODIUM 134 mMol/L (135-145)
--- NOTE | 2017-03-02 05:19 | NUR ---
Significant Event: Pt A&Ox3. VS stable, remains on RA. Pain at more of tolerable level. I have been giving scheduled dilaudid and about an hour later giving PRN PO dose. Dressings to Lt hip and leg remain C/D/I. Forrest patent with 1250 out. Still need x2 more hemoccult studies. PIV in RFA and LFA, SL. Pt was up x1-2 assist with gb and walker, q2 turn while in bed. Follow up: Continue to treat pain. Continue plan of care.
--- NOTE | 2017-03-02 11:01 | NUR ---
PT MOVED TO NO RISK W/ INTAKE IMPROVED TO 75-100%. WILL CONT CIB W/ MEALS TO MAINTAIN NUTRITION STATUS. WILL ASSIST NEEDED.
--- NOTE | 2017-03-02 16:35 | NUR ---
PATIENT UP TO COMMODE W/ 2 ASSIST. SBP 90'S, HR 100, SATS HIGH 90'S ON RA. CONTINUING PO DILAUDID SCHEDULED AND PRN, IV DILAUDID GIVEN X2 THIS SHIFT.
[2017-03-03 04:16] LABS: HEMATOCRIT 23.6 % (33.0-46.0); MCH 26.7 pg (27.0-34.0); MCHC 31.8 gm/dL (32.0-36.5); MPV 9.7 fl (9.4-12.4); PLATELET COUNT 186 K/uL (150-450); RBC 2.81 M/uL (3.50-5.50); RDW-CV 17.3 % (11.9-14.6); WBC 10.4 K/uL (4.0-11.0)
[2017-03-03 04:29] LABS: HEMOGLOBIN 7.5 g/dL (10.0-15.0)
[2017-03-03 04:32] LABS: ANION GAP 10.3 (10.0-19.0); BLOOD UREA NITROGEN 7 mg/dL (6-24); CALCIUM 8.6 mg/dL (8.5-10.5); CHLORIDE 96 mMol/L (96-110); CO2 30 mMol/L (22-32); CREATININE 0.3 mg/dL (0.5-1.1); ESTIMATED GFR (MDRD EQUATION) > 60; MAGNESIUM 1.9 mg/dL (1.8-2.6); POTASSIUM 4.3 mMol/L (3.7-5.1); SODIUM 132 mMol/L (135-145)
--- NOTE | 2017-03-03 05:07 | NUR ---
Significant Event: Pt A&Ox3. BP's remain low and HR remains ST. Up to chair x2 assist. Pt was c/o lots of coughing and difficulty breathing. RT gave PRN albuterol treatment and placed nc in nose (O2 remains off and sats are mid 90's). Lots of pain last night associated with Lt leg. Gave x1 dose of IV dilaudid. Have been giving PRN and kelly PO dilaudid regularly. Follow up: Encourage ambulation. Continue plan of care.
[2017-03-03 05:09] LABS: ABSOLUTE NEUTROPHIL CT (ANC) 8.1 K/uL (1.8-7.8); LYMPHOCYTE # 1.5 K/uL (0.8-4.0); LYMPHOCYTE % 14 %; MONOCYTE # 0.8 K/uL (0.0-1.0); SEGMENTED NEUTROPHIL # 8.1 K/uL (1.8-7.8); SEGMENTED NEUTROPHIL % 78 %
--- NOTE | 2017-03-03 16:46 | NUR ---
Significant Event: A/O x3, cooperative with cares. VSS, SBPs 90-100s, RHs 100-110s, on room air. IV diluadid given at 1018 in addition to schedule diluadid for c/o back pain; relief noted. Forrest patent with 950 ml out this shift. Up with 2 assist to BSC. Reposition every 2 hours. Follow up:
--- NOTE | 2017-03-04 04:57 | NUR ---
Significant Event: Pt A&Ox3. VS stable, remains on RA. Pain continues to be controlled at a 6 with PRN and kelly dilaudid. Still has not had a BM. WOC consulted regarding wound on inner Rt thigh as it is slightly opened. Put [place]oe [place] and wipe on spot. Also added buttocks onto consult as another open wound is on the other side. (Very small, almost shearing type.) Wakefield remains patent with 800 out. Pt wondering if wakefield could be d/c'd. Left note in chart for MD to follow up. No IV dilaudid given. Follow up: Continue plan of care.
[2017-03-04 06:29] LABS: HEMATOCRIT 24.2 % (33.0-46.0)
[2017-03-04 06:30] LABS: HEMOGLOBIN 7.8 g/dL (10.0-15.0)
--- NOTE | 2017-03-04 17:38 | NUR ---
Significant Event: A/O x3, cooperative with cares. VSS, SBPs 90-100s, HRs 80-110s, on room air. 0.5 m of IV diluadid given at 0644 for c/o back et R) shoulder pain; relief noted. Only recieved 2 of scheduled doses of diluadid as patient was nauseated et didn't take AM meds until later in the morning. Zofran 4 mg given x2, last at 1333, mild relief noted. Forrest dc'd at 1155; patient has voide 250 ml x1. Up with assist of 2 to BSC; only did bed exercises with PT et didn't ambulate in room. Follow up: If unable to void et bladder scan >350, call doctor
--- NOTE | 2017-03-05 04:55 | NUR ---
Significant Event: Pt A&Ox3. VS stable, remains on RA. HR 70's-80's overnight. BP's remain low 100's. Only had to give 1 dose PRN PO dilaudid. BS elevated at bedtime (330). No c/o nausea. Had 900ml urine output overnight. 1 very small, scant BM. Hard formed. Follow up: Continue plan of care.
[2017-03-05 05:32] LABS: HEMATOCRIT 24.7 % (33.0-46.0)
[2017-03-05 05:35] LABS: HEMOGLOBIN 7.9 g/dL (10.0-15.0)
[2017-03-05 05:51] LABS: ANION GAP 11.2 (10.0-19.0); BLOOD UREA NITROGEN 9 mg/dL (6-24); CHLORIDE 98 mMol/L (96-110); CO2 28 mMol/L (22-32); CREATININE 0.3 mg/dL (0.5-1.1); ESTIMATED GFR (MDRD EQUATION) > 60; MAGNESIUM 2.1 mg/dL (1.8-2.6); POTASSIUM 4.2 mMol/L (3.7-5.1); SODIUM 133 mMol/L (135-145)
--- NOTE | 2017-03-05 19:16 | NUR ---
Significant Event: A/O x3, cooperative with cares. VSS, SBPs 90-110s, HRs 80-100s, on room air. C/O back/neck pain consistently rating 6-7/10; patient recieved scheduled dilaudid et a PRN dose with 1200 scheduled dose. Initial dose of Nucynta given. Doctor wants PRN po/IV diluadid not to be utilized very much if at all. Dressings changed to L) hip et leg today. WOC seen patient today for area to inner R) thigh; nystation cream ordered et applied. Up with assist of 2 to BSC; PT/OT working with patient Follow up: dressing changes weekly or as needed
[2017-03-06 03:56] LABS: HEMATOCRIT 25.5 % (33.0-46.0)
--- NOTE | 2017-03-06 05:15 | NUR ---
Significant Event: VS stable, remains on RA. HR 80's-90's; BP still remain lower 90's-low 100's. No c/o nausea. No PRN pain meds given. Med/surg status, to move when bed available. Follow up: Continue plan of care.
--- NOTE | 2017-03-06 14:33 | NUR ---
Call from Lori that family is up in the room and wanting to talk with me about dismissal plans. I stopped up to Boogie' room, she was in bed resting when I came in, her daughter and another family member were present during my visit. I let them know that when I had talked with Arabella grant in her stay, she told me that it was her plan to go home with family taking care of her and helping out and then also having caregivers around. Daughter states that she isn't sure that her going home is going to be the best option for her. I let her know that if Arabella is planning on doing chemo, then going to a SNF could be difficult as they don't tend to accept people that are on chemo. I told her that I would still look into that option though and see what I could find out. I provided daughter with [facility] [employer] resources and also a list of caregiving agencies around this area to start working on incase no SNF would be able to accept. Lori called and talked with Clarisse, oncology coordinator, who states the two chemo meds that is planning on putting Arabella on, Dabrafenib and Trametinib, is a trial med and it will provided for Arabella for free for 2-4 weeks but then after that they will have to apply for funding for it or have a out of pocket cost for them. I told Lori, because of this, I am not for sure of SNFs will be willing to look at the referral. Lori also tells me that was wanting to put Arabella on a TAX SERVICES INTERN for pain but Dr. Newman is not wanting to do this. I did see in the hallway and he confirms that he is not planning on putting Arabella on a TAX SERVICES INTERN at this time. I went ahead an faxed referrals to all 4 SNFs in [facility] to see if any of them would be willing to look at and possibly accept upon dismissal. Insurance precert would need to be done with her insurance before SNF could be obtained. CM to continue to follow and assist.
--- NOTE | 2017-03-06 17:45 | NUR ---
Significant Event: A/O x3, cooperative with cares. VSS, SBPs 90-120s, HRs 90-100s, on room air. Consistenly rating pain 5-7/10 even after scheduled pain medications. Recieved 1 mg of IV diluadid at [address] Pablo's wishes. Zofran given at 1707 for c/o nausea. Up with assist of 2 to BSC; no BM this shift. Unsure of d/c plan for patient as of this time. Follow up:
[2017-03-07 04:55] LABS: BASOPHIL % 0.1 %; HEMOGLOBIN 8.4 g/dL (10.0-15.0); IMMATURE GRANULOCYTE # 0.4 K/uL (0.0-0.3); IMMATURE GRANULOCYTE % 4.6 %; LYMPHOCYTE # 1.1 K/uL (0.8-4.0); LYMPHOCYTE % 12.3 %; MCH 26.1 pg (27.0-34.0); MCHC 31.1 gm/dL (32.0-36.5); MCV 83.9 fl (83.0-98.0); MONOCYTE # 0.4 K/uL (0.0-1.0); MONOCYTE % 4.2 %; MPV 9.7 fl (9.4-12.4); NEUTROPHIL # (ANC) 7.1 K/uL (1.8-7.8); NEUTROPHIL % 78.8 %; NRBC % 0 /100WBC (0-0.00); PLATELET COUNT 249 K/uL (150-450); RBC 3.22 M/uL (3.50-5.50); RDW-CV 17.6 % (11.9-14.6); WBC 9.1 K/uL (4.0-11.0)
[2017-03-07 05:11] LABS: ALBUMIN 2.2 gm/dL (3.5-5.0); ALK PHOS 188 IU/L (33-138); ALT 22 IU/L (12-78); ANION GAP 10.7 (10.0-19.0); AST 25 IU/L (10-40); BLOOD UREA NITROGEN 8 mg/dL (6-24); CHLORIDE 95 mMol/L (96-110); CO2 29 mMol/L (22-32); CREATININE 0.3 mg/dL (0.5-1.1); ESTIMATED GFR (MDRD EQUATION) > 60; POTASSIUM 4.7 mMol/L (3.7-5.1); SODIUM 130 mMol/L (135-145); TOTAL PROTEIN 6.6 g/dL (6.0-8.4)
[2017-03-07 05:19] LABS: TOTAL BILIRUBIN 0.4 mg/dL (0.0-1.5)
--- NOTE | 2017-03-07 05:31 | NUR ---
Significant Event: Pt A&Ox3. VS stable, remains on RA. Chronic pain, always states 6. Galindo dilaudid and nucynta. Oladeji does not want PRN's to be given if possible. Pt is up x2 assist with gb and FWW to BSC. Med/surg status. ADA diet, accuchecks ACHS, mild scale. PT/OT working with pt. Galindo xanax started. No c/o nausea overnight. Follow up: Continue plan of care. PO chemo to start today. In chart is pharmacy med interaction note.
--- NOTE | 2017-03-07 15:53 | NUR ---
Call from Kellen at [facility], they are not going to be able to accept Conne. I also talked with Portia at [facility], after verbal referral was given to her, she tells me she doesn't feel as if they will be able to take Arabella, but I could go ahead and fax things just incase. I faxed over a referral and will wait for them to call back. Called daughter Bela, [phone], she states she was at the pool with her kids so she couldn't talk now but would try to call me back later this afternoon to touch [facility]. to continue to follow and assist.
--- NOTE | 2017-03-07 16:42 | NUR ---
Significant Event: ALERT AND ORIENTED X3, REPEATS HERSELF OFTEN. UP WITH 1-2 ASSIST, GB AND WALKER TO [facility]. LEFT LEG PAIN AND CHRONIC PAIN IN BACK. SCHEDULED PAIN MEDS GIVEN. INITIAL DOSE OF XANAX THIS AM GIVEN. NO BM. VOID X2. NEED URINE SAMPLE. ROOM AIR. VSS. UNABLE TO START PO CHEMO TODAY, MEDICATIONS DID NOT ARRIVE TODAY. DR. JUSTICE'S NURSE NAVIGATOR (JOSH) WILL CALL TOMORROW WHEN THEY ARRIVE. Follow up: CONTINUE TO MONITOR. MSU STATUS.
--- NOTE | 2017-03-08 01:30 | NUR ---
MISDOCUMENTED REASSESSMENT OF PAIN MEDS. AT 0111 2 MG PO DILAUDID WAS GIVEN. REASSESSMENT WAS NOT WITHIN NORMAL LIMITS ( I ACCIDENTALLY DOCUMENTED) THAT IS WHY AN ADDITIONAL 2 MG PO DILAUDID WAS GIVEN.
[2017-03-08 04:09] LABS: BASOPHIL % 0.2 %; EOSINOPHIL % 0.1 %; HEMATOCRIT 28.5 % (33.0-46.0); HEMOGLOBIN 8.8 g/dL (10.0-15.0); IMMATURE GRANULOCYTE # 0.3 K/uL (0.0-0.3); IMMATURE GRANULOCYTE % 2.7 %; LYMPHOCYTE # 1.8 K/uL (0.8-4.0); LYMPHOCYTE % 15.1 %; MCHC 30.9 gm/dL (32.0-36.5); MCV 84.1 fl (83.0-98.0); MONOCYTE # 0.7 K/uL (0.0-1.0); MONOCYTE % 6.1 %; MPV 9.5 fl (9.4-12.4); NEUTROPHIL % 75.8 %; NRBC % 0 /100WBC (0-0.00); PLATELET COUNT 287 K/uL (150-450); RBC 3.39 M/uL (3.50-5.50); RDW-CV 18.2 % (11.9-14.6); WBC 11.9 K/uL (4.0-11.0)
[2017-03-08 04:24] LABS: ANION GAP 12.5 (10.0-19.0); BLOOD UREA NITROGEN 11 mg/dL (6-24); CALCIUM 9.3 mg/dL (8.5-10.5); CHLORIDE 96 mMol/L (96-110); CO2 27 mMol/L (22-32); CREATININE 0.4 mg/dL (0.5-1.1); ESTIMATED GFR (MDRD EQUATION) > 60; MAGNESIUM 2.1 mg/dL (1.8-2.6); POTASSIUM 4.5 mMol/L (3.7-5.1); SODIUM 131 mMol/L (135-145)
--- NOTE | 2017-03-08 04:46 | NUR ---
Significant Event: A/0 X 3, 2 ASSIST TURN AND PIVOT TO BEDSIDE COMMODE. SBP'S LOW 100'S, HR WAS 90'S INCREASED TO 120-130'S, TOLD NADEGE, GOT ORDER FOR 500 NS AT 100 ML/HR AND IT WAS NOTED SHE HAD LOW URINE OUTPUT. BIGGEST ISSUE HAS BEEN PAIN CONTROL. GETS SCHEDULED DILAUDID Q4 HOUR, ALSO HAD PRN PO DILAUDID X 2, AND PRN IV DILAUDID 1 MG X 2. Follow up:
--- NOTE | 2017-03-08 16:27 | NUR ---
A&O. 1-2PA PIVIOT TO COMMODE/BED. HR REMAINS 120'S-130'S. RA.AFEBRILE. SBP 110'S-120;S. C/O PAIN TO BACK/SHOULDERS RATES 8-10 AT ALL TIMES. IVP DILAUDID X1. SCHEDULED DILAUDID X3. ALSO HAS PRN DILAUDID AVAILABLE. LS CLEAR. BS HYPOACTIVE. NO BM TODAY SUPPOSITORY X1. PLACED GERARD THIS AM FOR RETENTION. L FA IV SL. ACHS. CONSULTED PSYC. STILL WIATING FOR CHEMO. PLAN IS TRYING TO FIND PLACEMENT
[2017-03-08 22:13] LABS: BASOPHIL % 0.1 %; IMMATURE GRANULOCYTE # 0.3 K/uL (0.0-0.3); IMMATURE GRANULOCYTE % 2.2 %; LYMPHOCYTE # 1.9 K/uL (0.8-4.0); LYMPHOCYTE % 12.4 %; MCV 84.3 fl (83.0-98.0); MONOCYTE # 1.1 K/uL (0.0-1.0); MONOCYTE % 7.1 %; MPV 9.7 fl (9.4-12.4); NEUTROPHIL # (ANC) 12.2 K/uL (1.8-7.8); NEUTROPHIL % 78.2 %; NRBC % 0 /100WBC (0-0.00); PLATELET COUNT 303 K/uL (150-450); RDW-CV 18.3 % (11.9-14.6); WBC 15.5 K/uL (4.0-11.0)
[2017-03-08 22:15] LABS: RBC 2.16 M/uL (3.50-5.50)
[2017-03-08 22:17] LABS: HEMATOCRIT 18.2 % (33.0-46.0); HEMOGLOBIN 5.7 g/dL (10.0-15.0); MCH 26.4 pg (27.0-34.0); MCHC 31.3 gm/dL (32.0-36.5)
[2017-03-08 22:27] LABS: BILIRUBIN URINE NEGATIVE (NEGATIVE); BLOOD URINE 25 /UL (NEGATIVE); COLOR URINE YELLOW (YELLOW); GLUCOSE URINE NEGATIVE (NEGATIVE); KETONE URINE 15 mg/dL (NEGATIVE); LEUKOCYTES URINE 100 /UL (NEGATIVE); NITRITE URINE NEGATIVE (NEGATIVE); PROTEIN URINE 30 mg/dL (NEGATIVE); SPEC GRAVITY URINE 1.025 (1.003-1.035); TURBIDITY URINE CLEAR (CLEAR); UROBILINOGEN URINE NORMAL (NORMAL)
[2017-03-08 22:37] LABS: BACTERIA URINE FEW (NEGATIVE); EPITHELIAL URINE 0-2 #/HPF (NEGATIVE); MUCUS URINE 1+ (NEGATIVE)
[2017-03-08 23:05] LABS: ANION GAP 17.2 (10.0-19.0); BLOOD UREA NITROGEN 8 mg/dL (6-24); CALCIUM 8.8 mg/dL (8.5-10.5); CHLORIDE 93 mMol/L (96-110); CO2 24 mMol/L (22-32); CREATININE 0.3 mg/dL (0.5-1.1); ESTIMATED GFR (MDRD EQUATION) > 60; POTASSIUM 4.2 mMol/L (3.7-5.1); SODIUM 130 mMol/L (135-145)
--- NOTE | 2017-03-09 05:40 | NUR ---
Significant Event: HR INCREASED TO 140'S, TEMP 100.5. DR LIGHT NOTIFIED. DID BLOOD CULTURES X 2, LABS, STARTED VANCO, ZOSYN, PROTONIX. HBG 5.7 ORDERS TO INFUSE 2 UNITS BLOOD. 2ND UNIT STARTED AT 0505 AND IS TO RUN OVER 3 HOURS. H&H IS TO BE DRAWN 1 HOUR AFTER 2ND UNIT FINISHED INFUSING. WAS MADE NPO. HR HAS NOW DECREASED INTO THE 1'TEENS. GROCERY CLERK MARKING PUMP STARTED WITH DILAUDID, 0.25 CONTINOUS, 0.25 DEMAND 10 MIN LOCKOUT. SHE HAS BEEN MORE COMFORTABLE THIS SHIFT. Follow up:
[2017-03-09 06:04] LABS: ANION GAP 14.6 (10.0-19.0); BLOOD UREA NITROGEN 9 mg/dL (6-24); CALCIUM 8.6 mg/dL (8.5-10.5); CHLORIDE 101 mMol/L (96-110); CO2 22 mMol/L (22-32); CREATININE 0.2 mg/dL (0.5-1.1); ESTIMATED GFR (MDRD EQUATION) > 60; SODIUM 133 mMol/L (135-145)
[2017-03-09 06:05] LABS: POTASSIUM 4.6 mMol/L (3.7-5.1)
[2017-03-09 09:25] LABS: HEMATOCRIT 30.1 % (33.0-46.0)
--- NOTE | 2017-03-09 10:57 | NUR ---
A - PT SCREENED D/T LOS. ADMIT WT: 147#, CBW: 139#. NA+ 133, GLU 120, BUN/HERBOLOGIST 9/0.2. PT W/ 1+ EDEMA T/O. PT HAS HAD FREQUENT MEAL REFUSALS SINCE 03/06. PT MADE NPO TODAY D/T DROP IN HGB. EST NEEDS: [id number] KCALS, 75-95 GM PROTEIN, 1 ML/KCAL FLUIDS. D - AT RISK W/ UNINTENDED WT LOSS R/T INADEQUATE ORAL INTAKE AEB 5% WT LOSS. I - GOAL: 50-75% INTAKE BY DISMISSAL. M/E - PT LIKES CIB SUPPLEMENT; WILL RESUME WHEN DIET RESUMES. WILL F/U ON INTAKE IN 2-4 DAYS AND ASSIST NEEDED.
--- NOTE | 2017-03-09 13:54 | NUR ---
Call from Clarisse, [facility] boat pull[facility], she tells me that they got in Boogie' chemo meds and had sent it over to our pharmacy to get it labeled and hopefully start her on it as soon as they can. She also tells me that she is working on getting her chemo at no cost to Arabella, but hasn't succeeded in that yet. Clarisse tells me she will keep me updated and once she gets the chemo med either covered at 100% or with a little co-payment she will let me know. In reviewing Boogie' nursing notes and her chart, it appears that she is now on a SOUND TECHNICIAN SUPERVISOR, IV Abxs (Vanco, Zosyn, Prtonix) and her HGB was also low so she received 2 units of PRBC. Arabella was sleeping when I went passed so I didn't wake her. CM to continue to follow and assist.
--- NOTE | 2017-03-09 16:44 | NUR ---
Significant event: A&Ox3, drowsy at times. HR 110-120's. Max temp today 100.5, came down without medication. On 2L NC currently, lungs clear. Keeping a close eye on GAS PLANT REPAIRER ECO2, from [id number] was alarming frequently, talked with patient about possiblity of needing to take GAS PLANT REPAIRER button for awhile. GAS PLANT REPAIRER alarming has decreased since then, ECO2 39-41. Has had 7 attempts and 7 delivers. Hemoglobin recheck was 1000 after 2nd unit of blood. Hematest stools x 2 more, tested stool this shift OB negative. Forrest draining yellow with sediment, 900 ml UOP. Proximal L) hip dressing changed. Requires 2 assist to pivot to commode, weak. Initiated chemo medications today. Follow Up: continue current POC
[2017-03-10 04:02] LABS: HEMATOCRIT 29.1 % (33.0-46.0); HEMOGLOBIN 9.5 g/dL (10.0-15.0); MCHC 32.6 gm/dL (32.0-36.5); MCV 83.6 fl (83.0-98.0); MPV 10.1 fl (9.4-12.4); RDW-CV 16.6 % (11.9-14.6); WBC 8.3 K/uL (4.0-11.0)
[2017-03-10 04:04] LABS: MCH 27.3 pg (27.0-34.0); PLATELET COUNT 210 K/uL (150-450); RBC 3.48 M/uL (3.50-5.50)
[2017-03-10 04:24] LABS: BLOOD UREA NITROGEN 8 mg/dL (6-24); CHLORIDE 103 mMol/L (96-110); CO2 22 mMol/L (22-32); CREATININE 0.3 mg/dL (0.5-1.1); ESTIMATED GFR (MDRD EQUATION) > 60; SODIUM 134 mMol/L (135-145)
[2017-03-10 04:25] LABS: ANION GAP 12.9 (10.0-19.0); CALCIUM 7.4 mg/dL (8.5-10.5); MAGNESIUM 1.9 mg/dL (1.8-2.6); POTASSIUM 3.9 mMol/L (3.7-5.1)
--- NOTE | 2017-03-10 05:29 | NUR ---
Significant Event: Patient alert and oriented x2. SBP 96-100. HR 90s-110s. All other vital signs stable. Afebrile this shift. On 2L O2 per NC. WHOLESALE BUYER pump continues with Dilaudid. 6 attempts and 6 deliveries. EtCO2 stable. Forrest remains patent with 700uop. NS at 100ml/hr. Protonix at 10mg/hr. Scheduled Zosyn and Vanco given throughout shift. Patient frequently complains of pain to back/shoulders. Repositioned often with some relief. HGB 9.5 this morning. Up to bedside commode with 2 assist pivot. Dressings to left hip/leg C/D/I. Patient calm and cooperative with all cares. Follow up: Hematest x2 needed. Will continue to monitor EtCO2, HR, and RR.
[2017-03-10 05:36] LABS: ABSOLUTE NEUTROPHIL CT (ANC) 5.6 K/uL (1.8-7.8); BANDED NEUTROPHIL # 0.7 K/uL (0.0-0.1); BANDED NEUTROPHILS % 8 %; LYMPHOCYTE # 2.1 K/uL (0.8-4.0); LYMPHOCYTE % 25 %; MONOCYTE # 0.4 K/uL (0.0-1.0); SEGMENTED NEUTROPHIL % 60 %
--- NOTE | 2017-03-10 17:10 | NUR ---
Significant Event: pt tired today and does not get oob. Protonix gtt still infusing. SAND MOLDER still same, pt pain controlled. IVF dcd, CXR done, bumex given with good uop. BG at 1500 was 66, back up to 107, dr edilma wells. 02 weaned l liter. Dressing c/d/i hip. Pt has many visitors today. Follow up:
--- NOTE | 2017-03-11 05:28 | NUR ---
Significant Event: A/O X 3, MORE ALERT THAN PREVIOUS SHIFTS. HR 90'S TO LOW 100'S, SBP 100'S, AFEBRILE. CONTINUES ON ZOSYN, VANCO, PROTONIX AT 10 MG/HR. DILAUDID SERIALS LIBRARIAN AT 0.25MG HR 0.25 DEMAND, 8 ATTEMPTS 7 DELIVERED. GERARD WITH UOP 1300. BECAME DIAPHORETIC, BLOOD SUGAR TAKEN AT 0510 WAS 59, PUSHED 1/2 AMP CAUSE PATIENT DID NOT FEEL LIKE TOLERATING PO AND RECHECK WAS 136. PRIOR TO THIS SHE HAS BEEN COMFORTABLE THIS EVENING WITH NO COMPLAINTS OF PAIN OR ANY OTHER COMPLICATIONS. CONTINUES IN CHEMO PRECAUTIONS. Follow up:
[2017-03-11 14:49] LABS: BLOOD UREA NITROGEN 9 mg/dL (6-24); CHLORIDE 102 mMol/L (96-110); CO2 24 mMol/L (22-32); MAGNESIUM 2.2 mg/dL (1.8-2.6); SODIUM 135 mMol/L (135-145)
[2017-03-11 14:52] LABS: ANION GAP 11.9 (10.0-19.0); CALCIUM 7.1 mg/dL (8.5-10.5); CREATININE 0.5 mg/dL (0.5-1.1); ESTIMATED GFR (MDRD EQUATION) > 60; POTASSIUM 2.9 mMol/L (3.7-5.1)
--- NOTE | 2017-03-11 16:39 | NUR ---
Significant Event: NO ASSESSMENT CHANGES TODAY. STOPPED PROTONIX DRIP, MARGO'Caryl GUADARRAMA. LABS IN THE AM. DILAUDID INSECTICIDE EXPERT CONTINUES WITH SAME PARAMETERS Follow up: MONITOR
--- NOTE | 2017-03-12 04:27 | NUR ---
Significant Event: A/0 X 3, TURNED PER PATIENT REQUEST. SBP'S 100'S. HR 80-90'S. AEBRILE. 02 AT 2L. GERARD 1600 UOP. CONTINUES ON ZOSYN, DILAUDID QUALITY MANAGEMENT NURSE. 0.25 CONT, 0.25 DEMAND, 9 ATTEMPTS, 9 DELIVERED. POTASSIUM LOW AT 2.3 .GAVE 80 MEQ PO POTASSIUM (REFUSED IV POTASSIUM). RESTED WELL AT TIMES TONIGHT. Follow up:
[2017-03-12 06:08] LABS: BASOPHIL % 0.4 %; EOSINOPHIL # 0.1 K/uL (0.0-0.5); EOSINOPHIL % 1.7 %; HEMATOCRIT 28.9 % (33.0-46.0); HEMOGLOBIN 9.3 g/dL (10.0-15.0); IMMATURE GRANULOCYTE # 0.1 K/uL (0.0-0.3); IMMATURE GRANULOCYTE % 1.5 %; LYMPHOCYTE # 1.8 K/uL (0.8-4.0); LYMPHOCYTE % 33.5 %; MCHC 32.2 gm/dL (32.0-36.5); MCV 83.8 fl (83.0-98.0); MONOCYTE # 0.4 K/uL (0.0-1.0); MONOCYTE % 7.3 %; NEUTROPHIL # (ANC) 2.9 K/uL (1.8-7.8); NEUTROPHIL % 55.6 %; NRBC % 0 /100WBC (0-0.00); RBC 3.45 M/uL (3.50-5.50); RDW-CV 16.9 % (11.9-14.6); WBC 5.2 K/uL (4.0-11.0)
[2017-03-12 06:09] LABS: PLATELET COUNT 285 K/uL (150-450)
[2017-03-12 06:24] LABS: BLOOD UREA NITROGEN 9 mg/dL (6-24); CHLORIDE 108 mMol/L (96-110); CO2 24 mMol/L (22-32); CREATININE 0.3 mg/dL (0.5-1.1); ESTIMATED GFR (MDRD EQUATION) > 60; MAGNESIUM 2.3 mg/dL (1.8-2.6); SODIUM 137 mMol/L (135-145)
[2017-03-12 06:26] LABS: ANION GAP 9.1 (10.0-19.0); CALCIUM 7.2 mg/dL (8.5-10.5); POTASSIUM 4.1 mMol/L (3.7-5.1)
--- NOTE | 2017-03-12 11:38 | NUR ---
A-NUTRITION F/U 6/10 BUMEX GIVEN; GOOD UOP. CONTINUES ON CHEMO PRECAUTIONS LABS: NA 137, K+ 4.1, GLU 105, BUN 9, WIRE MESH KNITTER 9, WIRE MESH KNITTER 0.3, ALB 2.2 MEDS: LEVEMIR ADJUSTED DIET RX: CONSISTENT CARB. CIB TID AND YOGURT AT AM SNACK. PO INTAKE BITES-50%. LIKES THE CIB. EST NUTR NEEDs: 6460-2364 KCALS AND 75-95 GM PROTEIN D-AT NUTRITION RISK W/UNINTENDED WT LOSS R/T INADEQUATE ORAL INTAKE AEB 5% WT LOSS, INTAKE RECORDS. I-CONTINUE W/CURRENT SUPPLEMENTS M/E-GOAL: PO INTAKE >/=50% BY DISCHARGE 1)F/U PO INTAKE, SUPPLEMENT, WT, AND POC IN 3-5 DAYS 2)ASSIST NEEDED
--- NOTE | 2017-03-12 16:36 | NUR ---
Significant event: A&Ox3. HR 80-90's. Afebrile. SBP 100-140's. On 2L NC. ECO2 36-39 today. MANAGER AUDIT continuous dose increased to 0.4 mg. Patient had 15 demands and 14 delivered, for a total of 6.73 mg. Forrest catheter out at 1300 today, no void yet. Had one x-small BM today, formed and brown. Teary today, stating the amount of medication she is on makes her sad. Refused to turn today. Follow Up: Continue current POC.
--- NOTE | 2017-03-13 04:36 | NUR ---
Significant events: Pt A/Ox3. VSS, SBP 90-140's, on 2L/NC. Dilaudid BOTTLE ASSEMBLER pump, 0.4mg continuous, 0.25mg demand, 10 minute lockout, 10 demands, 10 deliveries for 7.16mg total. Repositioned frequently. Pt was straight cathed at 1900 for discomfort and inability to void post catheter removel. Forrest catheter replaced at 0300. 2000mL out total. L) leg surgical dressings x3 covered with mepilex, CDI. Nystatin to groin for excoriation. Oral chemo administered, chemo precautions continue. ACHS accucheck. Levemir held at HS for BG of 88, decreawed appetite. Pt slept well this shift, cooperative with cares.
--- NOTE | 2017-03-13 15:49 | NUR ---
[facility] today to see where she was at on the process of helping Arabella file for disability/Medicaid services. Rachael tells me that she hasn't talked with Arabella since her first initial visit a few weeks back and at that time, per Rachael, "Arabella wasn't ready to talk about this or deal with the fact that she might not be able to go back to work so we really didn't get much done on it. It is going to be tricky because she is still , so we will have to figure all that out." I asked that Rachael go and talk with Arabella tomorrow to start this process as I was trying to get her to skilled upon disimissal but was running into barriers in [facility] to her financial situation/payment issues for SNFs and her being on chemo. Rachael tells me that she will talk with her tomorrow and then update me after that. CM to continue to follow and assist.
--- NOTE | 2017-03-13 18:40 | NUR ---
Significant Event:Patient outside briefly with therapy for fresh air. She reports that her pain is adequately controlled with Dilaudin DEBT COLLECTOR. Poor appetite. Intermittant nausea noted. Follow up:
--- NOTE | 2017-03-14 04:58 | NUR ---
Significant Event: A/O, VSS, RA, afebrile, patient rating pain 4-7/10, Diluadid ONLINE MARKETING ANALYST continues, / demands delivered, wakefield had 1000 ml out, Levemir held for lower blood sugar of 96 and patient not eating, kpad to neck for relief of pain, patient only took chemo pills as she states her mouth is too dry to swallow much food or medicine, dressings x3 to L) leg all c.d.i Follow up: continue plan of care
--- NOTE | 2017-03-14 15:31 | NUR ---
Social visit with Arabella today, she tells me that she is feeling better. She tells me that her pain has been under control with her TRAVEL REGISTERED NURSE ICU and she thinks her chemo is working well. We discussed dismissal plans/goals/barriers. Plan/Goal per Arabella to get home with the help of her family and possible caregivers and C. She does not want to go to a SNF. Barriers being that she has insurance now, but since she won't be able to work anymore, she won't have insurance coverage much longer most likely. Estella from [facility] dept, is supposed to be following up with Arabella re:Medicaid/Disability today and I reminded her to go do so before I visited with Arabella. At this point no application has been filed or gathered to start the process. Another barrier is the fact that she is on chemo right now so even if she was open to going to a SNF, they most likely wouldn't take her because of the costs associated with chemo and the fact that she has no insurance coverage to pay for SNF would be another problem. Arabella states that one of her daughter in law from [place] will be able to take a leave from work and come be with her and help out. Encouraged Arabella to talk with family and line up DME that she might need at home as well as looking into cost of caregivers and things like that. She states she will do this. No other questions, needs or concerns at this time. CM to continue to follow and assist.
--- NOTE | 2017-03-14 18:50 | NUR ---
Patient continues to report that her pain is adequately controlled with Dilaudid AGRI BUSINESS AGENT. ETCO2 remains 30-34. Poor appetite continues with intermittent c/o nausea. Received IV Zofran x 1 today. Patient continues to limit repositioning and has stage 2 wound to her coccyx area.
--- NOTE | 2017-03-15 05:24 | NUR ---
Patient A/OX3. VSS on RA. PT/OT working with patient. Had LT hip repair, dressing CDI. Lungs clear/diminished. Bowel sounds present, 3 SM BMs this shift. Several IV see charting. Forrest 650out. Dilaudid RETAIL ACCOUNT REPRESENTATIVE 0.4 cont, 0.25 demand, 10min lockout. Chemo precations patient recieving oral chemo. Appitite is getting better. Waiting for placement.
[2017-03-15 07:45] LABS: BASOPHIL % 0.5 %; EOSINOPHIL # 0.2 K/uL (0.0-0.5); EOSINOPHIL % 2.6 %; HEMATOCRIT 31.7 % (33.0-46.0); HEMOGLOBIN 10.4 g/dL (10.0-15.0); IMMATURE GRANULOCYTE # 0.2 K/uL (0.0-0.3); IMMATURE GRANULOCYTE % 2.6 %; LYMPHOCYTE % 34.8 %; MCH 27.6 pg (27.0-34.0); MCHC 32.8 gm/dL (32.0-36.5); MCV 84.1 fl (83.0-98.0); MONOCYTE # 0.7 K/uL (0.0-1.0); MONOCYTE % 11.5 %; MPV 9.2 fl (9.4-12.4); NEUTROPHIL # (ANC) 2.8 K/uL (1.8-7.8); NRBC % 0 /100WBC (0-0.00); PLATELET COUNT 277 K/uL (150-450); RBC 3.77 M/uL (3.50-5.50); RDW-CV 17.4 % (11.9-14.6); WBC 5.7 K/uL (4.0-11.0)
[2017-03-15 08:00] LABS: ANION GAP 10.1 (10.0-19.0); BLOOD UREA NITROGEN 8 mg/dL (6-24); CALCIUM 7.3 mg/dL (8.5-10.5); CHLORIDE 102 mMol/L (96-110); CO2 24 mMol/L (22-32); CREATININE 0.4 mg/dL (0.5-1.1); ESTIMATED GFR (MDRD EQUATION) > 60; MAGNESIUM 2.3 mg/dL (1.8-2.6); PHOSPHORUS 1.5 mg/dL (2.5-4.9); POTASSIUM 4.1 mMol/L (3.7-5.1); SODIUM 132 mMol/L (135-145)
--- NOTE | 2017-03-15 11:13 | NUR ---
A - NUTRITION FOLLOW-UP CHEMO PRECAUTION. PT REPORTED NAUSEA IMPROVED. WAITING FOR PLACEMENT. WT STABLE. LABS: NA 132, GLU 143, CREA 0.4, PO4 1.5 NEW MEDS: ZOFRAN. PT IS ON REGLAN AND INSULIN. DIET: CONSISTENT CARBS W/ CIB 1X/DAY; ENSURE CLEAR BID; MAGIC CUP ONCE DAILY. INTAKE REF-25%, 75-100% X1 MEAL AND SUPPLEMENT 75-100% X1 NOTED. PT REPORTED APPETITE IS SLOWLY IMPROVING. DISLIKES BREAKFAST THIS MORNING. LIKES CIB, YOGURT AND ENSURE CLEAR, YET TO TRY MAGIC CUP. ENCOURAGEMENT GIVEN. EST NEEDS: [id number] KCAL, 75-95 GRAMS PROTEIN, FLUID NEEDS: 1ML/KCAL D - INADEQUATE ORAL INTAKE RELATED TO ALTERATION IN APPETITE EVIDENCED BY PO REF-25%. I - PT AGREED TO CONTINUE W/ CIB 1X/DAY; ENSURE CLEAR BID; YOGURT 1X/DAY AND MAGIC CUP 1X/DAY. M/E - GOAL: PT WILL BE ABLE TO TOLERATE >50% OF MEALS AND AT LEAST TWO ORAL SUPPLEMENTS PER DAY IN 4-6 DAYS.
--- NOTE | 2017-03-15 13:45 | NUR ---
Saw Lori with pallative care in the hallway. Updated her to the conversation that Arabella and I had yesterday about her dismissal plans/goals. No questions from Lori at this time. CM to continue to follow and assist.
--- NOTE | 2017-03-15 16:46 | NUR ---
Patient in good spirits today. She went outside in a w/c with therapy and sat up in the chair x 30 minutes in the room. To chair/bed with 1 moderate assist and gait belt. Good tolerance with activity. Dilaudid COUNSELOR AID dose decreased per MD orders. Continues with poor appetite. Case management working with patient on placement vs. home with home care.
--- NOTE | 2017-03-16 03:31 | NUR ---
Significant Event:pt aaox3.pt pleasant with staff and cares. sleepy during evening. ate only a few bites of supper. vss. iv dc to left inner forearm. potassium phoshate changed to po instead of iv per pt request. pt transfers with 2 assist gaitbelt walker, is weak. wakefield cath removed 03/15/16 at 1330 no void at 2230 bladder scan as orders and 980 in, straight cath at 2330 and 1100 out. order states if unable to void again 6-8 hours from then to rescan and place wakefield. mepiplex c/d/i to left leg. porfirio area very red, nystatin applied. uses call light apporp. achs blood sugars. hs bs 123. diluadid crab fisher 3 demands 3 delivered total of 2.14 given. pump is 0.2mg demand 10min lockout with 0.2mg continous. Follow up:
[2017-03-16 04:06] LABS: ALK PHOS 189 IU/L (33-138); AST 17 IU/L (10-40); TOTAL PROTEIN 5.8 g/dL (6.0-8.4)
[2017-03-16 04:07] LABS: ALBUMIN 1.7 gm/dL (3.5-5.0); ALT < 10 IU/L (12-78); TOTAL BILIRUBIN 0.3 mg/dL (0.0-1.5)
--- NOTE | 2017-03-16 17:30 | NUR ---
Significant Event:pt stood with therapy today. Pt eating/drinking pretty good today. C02 good. 02 on room air. Pain controlled, only pushed 3times. Forrest had reinsert had 1000 on scan this am pt could not void. Dr Lopez to consult Sunday. Nilson given. Follow up:
--- NOTE | 2017-03-17 05:30 | NUR ---
Significant Event: PATIENT IS ALERT AND ORIENTED. PATIENT APPEARS TO BE DEPRESSED. GERARD TO DD. DILAUDID HYDRAULIC ROCKBREAKER OPERATOR. 0.1MG CONT 0.1 Q5 MIN. PRN. ACCUCHECKS ACHS. Follow up:
--- NOTE | 2017-03-17 16:45 | NUR ---
Significant Event: THIS A.M. PT. VERY DEPRESSED. UPSET ABOUT HAVING HEARD SHE IS GOING TO REHAB. TAKEN ORAL MEDS SLOWLY OVER TIME. AFEBRILE. HR SR IN 80-90'S. SBP 109-113. CONT. ON DILAUDID CARGO MATE. .1 MG CONT. .1 MG DEMAND. LO 5 MIN. PAIN RT. SHOULDER/ARM RATING A 5. HAS LIDODERM PATCH LT. POST. SHOULDER. REPOSITIONS WITH MINAMIL HELP. CHANGED DRESSING TO LT. HIP X 3 SITES, TU INTACT. GERARD PATENT, CLEAR YELLOW URINE. Follow up: CONT. PLAN OF CARES. REHAB IN FUTURE.
--- NOTE | 2017-03-18 04:41 | NUR ---
Significant Event: PATIENT IS A/O X3. VSS. HR 80'S. SBP 100-120'S. AFEBRILE. 02 SATS IN MID 90'S ON RA. C/O CONSTANT PAIN TO RIGHT SHOULDER. 1MG IVP DILAUDID GIVEN X2 WITH RELIEF. C/O NAUSEA/VOMITING. ZOFRAN AND REGLAN GIVEN X1 WITH RELIEF. LUNGS CLEAR/DIM THROUHGOUT. UP WITH 2A WALKER/GB. BOWELS ACTIVE. C/O ON/OFF NAUSEA AND DECREASED APPETITE. CONSTIPATION IMPROVED. GERARD INTACT WITH 1000+ ML VOID. IN CHEMO PRECAUTIONS CURRENTLY TAKING ORAL CHEMO MEDS. REDNESS TO GROIN. NYSTATIN APPLIED. REDNESS/OPEN AREA TO BOTTOM. REFUSED TURNS THIS SHIFT. IV TO LEFT AC, LATERAL ELBOW AND RIGHT HAND/WRIST AREA. ON ACHS ACCUCHECKS. Follow up: CONTINUE TO MONITOR PAIN MANAGEMENT. GIRP TRANSFER POSSIBLY SUNDAY?
--- NOTE | 2017-03-18 17:08 | NUR ---
Significant Event: A/OX3. PT. CONT. TO HAVE DIFFICULTY TAKING CERTAIN MEDS. CAPSULES AND LARGE TABLETS, "JUST WON'T GO DOWN" SHE HAS DIFFICULTY THINKING BETWEEN FEELING NAUSEA OR HUNGER. GIVEN NAUSEA MED TODAY, SOME RELIEF. POOR APPETITE, ONLY TAKES BITES. REFUSED MIRALAX AND COLACE, ATTEMPTED SEVERAL TIMES TODAY TO GIVE THEM TO HER. SHE ATE 2 PRUNES. SIPS ON WATER AND CHEWS ON ICECHIPS. SHE SAID SHE CAN'T SWOLLOW BECAUSE HER MOUTH AND THROAT ARE SO DRY. AFEBRILE. HR SR IN 80-90'S. SATS 96% ON ROOM AIR. ATTEMPT TO REPOSITION. WILL ONLY TILT SLIGHTLY. BUTTOM RED WITH SORE, ALOE VESTA APPLIED. NYSTATIN TO FATUMA. REDNESS OF GROINS. SBP 107- 114. DR. JUSTICE INTO SEE PT. ORDERED DILAUDID ORALLY. DC'D IV DOSE. PT. ALSO REFUSES TO WEAR LYRIC HOSE AND FOOT PUMPS. ENCOURAGED, BUT STATED IT BOTHERS HER TOO MUCH. Follow up: PT. NEEDS LOTS OF ENCOURAGEMENT, BUT REFUSES ALOT OF HER CARES. A.M. LABS. DR. CEDENO SEEN ON 03/17/17 FOR POSSIBLE REHAB.
--- NOTE | 2017-03-19 03:22 | NUR ---
Significant Event: PATIENT IS A/O X3. VSS. HR 80-100'S. SBP 100'S. AFEBRILE. 02 SATS IN MID 90'S ON RA. CHRONIC PAIN TO SHOULDER/BACK/NECK AREA. ROMARIO DILAUDID GIVEN WITH RELIEF. C/O ON/OFF NAUSEA. PREMEDICATED WITH REGLAN IV BEFORE GIVING HS MEDS. LUNGS CLEAR/DIM THROUGHOUT. UP WITH 2A. NEEDS LOTS OF ENCOURAGEMENT TO DO THINGS OR EAT. BOWELS ACTIVE. BM X1. APPETITE DECREASED. GERARD INTACT WITH 1000 ML UOP. REDNESS TO BOTTOM AND GROIN. NYSTATIN APPLIED. OPEN AREA TO BUTTOCKS. PATIENT REFUSED REPO MOST OF SHIFT. ALOE APPLIED AND PATIENT TILTED AFTER BM. IV TO LEFT FOREARM AND RIGHT WRIST BOTH SL. ON ACHS ACCUCHECKS. Follow up: POSSIBLE TRANSFER TO [facility] IN NEXT DO OR TWO.
[2017-03-19 04:32] LABS: ALK PHOS 277 IU/L (33-138); ALT 11 IU/L (12-78); ANION GAP 12.4 (10.0-19.0); AST 16 IU/L (10-40); BLOOD UREA NITROGEN 7 mg/dL (6-24); CALCIUM 7.9 mg/dL (8.5-10.5); CHLORIDE 106 mMol/L (96-110); CO2 23 mMol/L (22-32); CREATININE 0.3 mg/dL (0.5-1.1); ESTIMATED GFR (MDRD EQUATION) > 60; MAGNESIUM 2.2 mg/dL (1.8-2.6); PHOSPHORUS 2.1 mg/dL (2.5-4.9); POTASSIUM 4.4 mMol/L (3.7-5.1); SODIUM 137 mMol/L (135-145); TOTAL BILIRUBIN 0.3 mg/dL (0.0-1.5); TOTAL PROTEIN 6.4 g/dL (6.0-8.4)
--- NOTE | 2017-03-19 12:30 | NUR ---
A-NUTRITION F/U C/O NAUSEA ON AND OFF. CONSTIPATION GETTING BETTER; (+)BM. REDNESS AND SMALL OA TO BOTTOM. TAKING ORAL CHEMO MEDS VISITED W/PT RE: SUPPLMENTS AND PO INTAKE. PT REQUESTS THAT MAGIC CUP IS CHANGED TO VANILLA. SHE IS TIRED OF THE ENSURE CLEAR AND WOULD LIKE TO STOP THEM FOR AWHILE. OFFERED TO INCREASE CIB FROM QD TO BID, BUT PT DECLINED. PT HAS C/O METAL AND "WET CARDBOARD" TASTE IN HER MOUTH. IS AWARE HER PO INTAKE IS NOT MUCH. LABS: NA 137, K+ 4.4, GLU 131, BUN 7, SQUAD BOSS 0.3, ALB 2.0 MEDS: DILAUDID DIET RX: CONSISTENT CARB W/CIB QD, ENSURE CLEAR BID, AND MAGIC CUP QD. PO INTAKE IS REF-25% EST NUTR NEEDS: 5734-5137 KCALS AND 75-95 GM PROTEIN D-AT NUTRITION RISK W/INADEQUATE NUTRIENT INTAKE R/T POOR APPETITE, BAD TASTE IN MOUTH AEB PT REPORT, INTAKE RECORDS. I-1)CHANGE FLEX. MAGIC CUP TO VANILLA MAGIC CUP 2)D/C ENSURE ENLIVE BID, PER PT REQUEST 3)CHANGE CIB FROM CHOCOLATE TO VANILLA M/E-GOAL: PO INTAKE >/=50% BY DISCHARGE 1)F/U PO INTAKE, SUPPLEMENT, AND POC IN 3-5 DAYS 2)ASSIST NEEDED
--- NOTE | 2017-03-19 13:43 | NUR ---
from [facility] at [facility]. I phoned her back and left a VM with her but still no call back at this time. Before going and talking with Arabella I visited with APRRISH Addison, she tells me that Boogie' insurance has approved her stay up until 03/20 with an update due on 03/21. We are not sure what insurance will say after that as there is really no qualifiers for her to be here anymore. Arabella was on a Z OS MAINFRAME SYSTEMS PROGRAMMER last week, but per , he switched her off the Z OS MAINFRAME SYSTEMS PROGRAMMER to oral Dilauded to control her pain and this has seemed to work out fine. states that he anticipates that Arabella will be able to dismiss to home in the next 1-2 days if we can get things lined up. Arabella and I talked at length about dismissal plans. She is still not interested in going into a SNF and she tells me it is her plan to go home with the help of her and her daughter in law from [place]. One of the main reasons why she isn't interested in going into the SNF is the possibility of having an out of pocket cost if her insurance should stop paying for things since she isn't working anymore. Also with her being on oral chemo medications, I have had SNFs tell me no because of this and the possibility of her becoming self pay is also a reason that facilities in [facility] have told me that they can't accept her at this time. Arabella states that she is hoping that we can line up some HHC for her and she is going to remind her daughter that they will need to find caregivers as well. She says that her son has obtained a lift chair for her to have at her house. She already has a FWW, cane, commode, and other various DME at home. One thing we talked about would be a wheelchair to make going to appointments easier on her. Let her know I would ask MD to fill out a script for her to obtain one when she leaves. Arabella is going to call her DIL to let her know we are planning on her going home on Sunday with HHC services as well as 24/7 care from family and possible caregivers. Asked if she wanted me to call her daugher or DIL to talk with them about this but she declines my offer and tells me that she will call and talk with them and then if they have any questions, she will give them my number and they can get ahold of me. Let her know that this was fine. No other questions, needs or concerns. CM to continue to follow and assist. Plan home with HHC on Sunday. Faxed/made HHC referral to [facility] services as Arabella had no preference on which agency followed along with her when dismissed.
--- NOTE | 2017-03-20 04:23 | NUR ---
Significant Event: A/O, VSS, RAashu had 1450 out, hs accucheck 185, patient only at bites of dinner, Levemir held, repositioned, dressing to L)leg x3 dry/intact, pain within tolerable limits Follow up: continue plan of care, home sunday?
--- NOTE | 2017-03-20 11:10 | NUR ---
Diabetes Consult: Patient reports she will be going home in the morning. The patient previous took insulin and oral glycemics at home to control her blood sugars. Current blood sugars are well controlled on Levemir and Novolog mild correction. Patient is requesting to be sent home on a correction scale versus taking oral glycemic. Patient was instructed on timing, dosing action of Novolog. She was provided with a copy of the mild correction scale and was able to verbalize accurate doses based on blood sugar scenarios. She has used insulin pens in the past and would like a script for Novolog pens upon discharge.
--- NOTE | 2017-03-20 14:46 | NUR ---
Social visit with Arabella. She tells me that he daughter in law from [place] will be here tomorrow morning to pick her up and take her home. She has no concerns about going home. We did talk about DME and she felt like she would benefit from a wheelchair to use at home. Gave her a list of DME companies in [facility] so she could obtain a wheelchair when she goes home. Left a note on the chart for MD to fill out a script for wheelchair. Also let Arabella know that Clarisse from [facility] (' [facility]) called me to tell me that her next month of chemo medications were in and she could stop and pick them up tomorrow after she was dismissed. Arabella says that her daughter will stop by and pick them up either before she picks her up or after. Also let Arabella know that I made a [facility] referral to [facility] so they could follow her when she was dismissed. She was fine with this. Initial referral was called and faxed into [facility] earlier today. Let Arabella know that I tried to call Mery back at her job in reference to her insurance but I still haven't heard back from her at this time. Arabella tells me that she will try calling her main HR person and then have them call me. No other questions, needs or concerns. CM to continue to follow and assist. Plan home tomorrow with [facility] and 23/04 care from her daughter in law and and possibly caregivers if family lines them up if they feel like it is needed.
--- NOTE | 2017-03-20 16:21 | NUR ---
Significant event: Pt. was transferred to PCU this AM. Oriented to unit. Pt. is now a DNR/DNI, band placed. D/C'd PIVs per DO. Forrest removed at 1400, has not voided at this time, will bladder scan before shift change if no void. ACHS checks. Bites for breakfast, ate 75% lunch, appetite improved. Ambulates 1PA with walker and gait belt. PT/OT working with as well. Shelby removed from L)leg and steri-strips applied. Showered this AM. Rates pain as tolerable. A&O, VSS, on RA. Plan to d/c home tomorrow with home health.
--- NOTE | 2017-03-21 04:44 | NUR ---
Significant Event: Patient is alert and oriented x 3. VSS on room air. Up with 1 assist and gaitbelt to bedside commode. Steri-strips intact to left lower extremity. CSM WNL to left lower extremity. Voiding well. Receives scheduled Dilaudid for pain. ACHS accuchecks. On hazardous drug precautions. No IVs per MD order. Patient is pleasant and cooperative with cares. Follow up: Home today.
--- NOTE | 2017-03-21 05:17 | NUR ---
Significant Event: Patient is alert and oriented x 3. VSS on 2L of O2. Encourage IS. Harsh, nonproductive cough noted. Up with 2-3 assist, gaitbelt and walker. Patient up in chair x 1 and dangled x 1 this shift. Dressing to back is clean, dry, and intact. Denies any numbness or tingling. Forrest intact with 1325 mls out this shift. Right wrist IV, saline locked. Dilaudid given last at 0434, Motrin at 0351, and Williamson at 1999. Patient is cooperative with cares. Follow up:
--- NOTE | 2017-03-21 10:00 | NUR ---
Diabetes consult; Patient confirms she is going home today. The patient continues to request to be placed on correction scale insulin upon discharge and forgo all oral hypolgycemics. The patient reports she had been taking toujeo at home but is currently out. The patient's blood sugars are well controlled on Levemir during this hospitalization and the patient is receptive to continuing Levemir upon discharge. She denies and questions or concerns. She reports a family member, who is an EMT will be staying with her to assist her with medication and daily cares. The patient's medication requests and glycemic regimen was discussed with URBANO Maharaj.
--- NOTE | 2017-03-21 12:10 | NUR ---
Social visit with Arabella. She is still planning on going home today with support from her family. She tells me that she got ahold of somone at [facility] in [facility] to them loaning a wheelchair out to her and they are going to set one out for her to come and grape picker today. I also let her know that we did have a script for her on the chart as well to use if she needed it. There was also a script on the chart for her for a blood pressure machine as well. Went over places where she could obtain one of those if needed when she goes. Arabella says that she has a FWW at home as well as a commode and other DME that she can use when she goes. Also tells me that her son and daughter in law will be there to help her out and are bringing a lift chair with them as well to help her out. She has no concerns about going home. States her pain has been well controlled with her oral medications. I let her know that I had faxed her dismissal paperwork to [facility] and left a VM with Rebekah letting her know that Arabella was leaving today and to follow up with her as soon as they could. Arabella was fine with this. She denies any other questions, needs or concerns. CM to continue to follow and assist. Plan home with family support and [facility] to follow.
[2017-03-21] MEDS ORDERED: XANAX0.25 M1 PO (12:40)
[2017-03-21] MEDS ORDERED: COLACE100 MG PO (12:41)
[2017-03-21] MEDS ORDERED: DILAUDID 2MG(HYD2 MG PO (12:42)
[2017-03-21] MEDS ORDERED: LOVENOX 6060 MG/0.6 SUB-Q (12:42)
[2017-03-21] MEDS ORDERED: NOVOLOG FL100 UNIT/1 SUB-Q (12:45)
[2017-03-21] MEDS ORDERED: LEVEMIR FL100 UNIT/1 SUB-Q (12:46)
[2017-03-21] MEDS ORDERED: LIDODERM1 EACH TRANS (12:49)
[2017-03-21] MEDS ORDERED: PROAMATINE5 MG PO (12:50)
[2017-03-21] MEDS ORDERED: DRISDOL 5050000 UNIT PO (12:51)
[2017-03-21] MEDS ORDERED: TYLENOL EXTRA500 MG PO (12:51)
[2017-03-21] MEDS ORDERED: TUMS REGULAR ST1 TAB PO (12:53)
[2017-03-21] MEDS ORDERED: MILK OF MA400 MG/5 M PO (12:54)
[2017-03-21] MEDS ORDERED: MEKINIST2 MG PO (13:15)
[2017-03-21] MEDS ORDERED: TAFINLAR75 MG PO (13:16)
--- NOTE | 2017-03-21 18:05 | NUR ---
DISCHARGE: D: ORDERS RECEIVED FOR THE PATIENT TO BE DISCHARGED TO HOME TODAY. I: DISMISSAL INSTRUCTIONS WERE PREPARED AND REVIEWED WITH THE PATIENT AND FAMILY VIRTUALLY. THE FOLLOWING INFORMATION WAS DISCUSSED INCLUDING KRAJOSEPH TEACHING SHEETS PROVIDED: DISCHARGE INSTRUCTIONS FOR INTERNAL FIXATION OF A FRACTURED FEMUR, XANAX, COLACE, LOVENOX, HYDROMORPHONE, NOVOLOG INSULIN, LEVEMIR INSULIN, MIDODRINE HCL, ERGOCALCIFEROL, TRAMETINIB, DABRAFENIB, TYELNOL, CALCIUM CARBONATE, AND MOM. REVIEWED FOLLOW UP APPOINTMENT AND ALL NEW PRESCRIPTION INCLUDING SIDE EFFECTS THAT THEY COULD CAUSE. R: THE PATIENT AND HER FAMILY BOTH VERBALIZED UNDERSTANDING OF THE DISMISSAL EDUCATION AT THE TIME OF TEACHING WITH NO FURTHER QUESTIONS. P: THE ABOVE INFORMATION WAS SHARED WITH THE PRIMARY NURSE AND CHARGE NURSE THAT THE PATIENT'S DISMISSAL EDUCATION WAS COMPLETED. THE PATIENT IS READY FOR DISCHARGE TO THE FRONT DOOR VIA WHEEL CHAIR BY NURSING STAFF.
== END 2017-03-21 14:45 | disposition home health service (06) | DRG 480 ==
LOC: GMED 10:54 → GMSU 13:00 → GPCU 13:00 → GMSU 02-19 18:01 → GICU 02-24 07:26 → GPCU 02-28 13:57 → GMSU 03-20 07:02
PROVIDERS: Emergency Medicine; Family Medicine; Hospitalist; Internal Medicine; Internal Medicine Hematology & Oncology; Nurse Practitioner Family; ADMIT Internal Medicine
PROC: BW1C1ZZ Fluoroscopy of Lower Extremity using Low Osmolar Contrast (ICD-10-PCS; principal; 2017-02-22)
PROC: 0QH936Z Insertion of Intramedullary Internal Fixation Device into Left Femoral Shaft, Percutaneous Approach (ICD-10-PCS; principal; 2017-02-22)
PROC: 0DJ08ZZ Inspection of Upper Intestinal Tract, Via Natural or Artificial Opening Endoscopic (ICD-10-PCS; 2017-02-28)
PROC: 0DJD8ZZ Inspection of Lower Intestinal Tract, Via Natural or Artificial Opening Endoscopic (ICD-10-PCS; 2017-02-28)
PROC: 30233N1 Transfusion of Nonautologous Red Blood Cells into Peripheral Vein, Percutaneous Approach (ICD-10-PCS; 2017-03-09)
DX: C79.51 Secondary malignant neoplasm of bone (principal); E13.10 Other specified diabetes mellitus with ketoacidosis without coma; I26.99 Other pulmonary embolism without acute cor pulmonale; J96.01 Acute respiratory failure with hypoxia; R65.20 Severe sepsis without septic shock; I82.220 Acute embolism and thrombosis of inferior vena cava; A41.9 Sepsis, unspecified organism; C78.01 Secondary malignant neoplasm of right lung; C78.1 Secondary malignant neoplasm of mediastinum; R57.9 Shock, unspecified; E44.0 Moderate protein-calorie malnutrition; M84.552A Pathological fracture in neoplastic disease, left femur, initial encounter for fracture; D62 Acute posthemorrhagic anemia; M84.58XA Pathological fracture in neoplastic disease, other specified site, initial encounter for fracture; C78.7 Secondary malignant neoplasm of liver and intrahepatic bile duct; C77.2 Secondary and unspecified malignant neoplasm of intra-abdominal lymph nodes; C77.0 Secondary and unspecified malignant neoplasm of lymph nodes of head, face and neck; F33.1 Major depressive disorder, recurrent, moderate; R00.0 Tachycardia, unspecified; Z51.5 Encounter for palliative care; Z68.25 Body mass index [BMI] 25.0-25.9, adult; Z79.4 Long term (current) use of insulin; E86.0 Dehydration; R33.9 Retention of urine, unspecified; G89.3 Neoplasm related pain (acute) (chronic); I10 Essential (primary) hypertension; K25.9 Gastric ulcer, unspecified as acute or chronic, without hemorrhage or perforation; K21.9 Gastro-esophageal reflux disease without esophagitis; E78.00 Pure hypercholesterolemia, unspecified; B37.2 Candidiasis of skin and nail; Z63.0 Problems in relationship with spouse or partner; Z85.820 Personal history of malignant melanoma of skin; Z79.82 Long term (current) use of aspirin; Z79.899 Other long term (current) drug therapy; F41.9 Anxiety disorder, unspecified; K59.00 Constipation, unspecified; R13.10 Dysphagia, unspecified; E83.39 Other disorders of phosphorus metabolism
CPT/HCPCS: A9577; C1713; C9113; J0690; J1160; J1170; J1265; J1644; J1650; J1956; J2250; J2370; J2405; J2543; J2765; J3010; J3370; J3480; J3489; J7030; J7040; J7050; J7120; J7121; P9040; Q0162

== ENCOUNTER → 2017-04-06 | Outpatient (CLI) | payer OTHER ==
[~2017-04-06] MED LIST changes: +COLACE100 MG PO; +DILAUDID 2MG(HYD2 MG PO; +DRISDOL 5050000 UNIT PO; +LEVEMIR FL100 UNIT/1 SUB-Q; +LIDODERM1 EACH TRANS; +LOVENOX 6060 MG/0.6 SUB-Q; +MEKINIST2 MG PO; +MILK OF MA400 MG/5 M PO; +NOVOLOG FL100 UNIT/1 SUB-Q; +NYSTATIN100000 UNI PO; +PROAMATINE5 MG PO; +TAFINLAR75 MG PO; +TUMS REGULAR ST1 TAB PO; +TYLENOL EXTRA500 MG PO; +XANAX0.25 M1 PO; +XARELTO15 MG PO
--- NOTE | ~2017-04-06 | ECHO ---
Transthoracic Echocardiography Report (TTE) Demographics Patient Name ILEANA JHAVERI Date of Study 04/06/2017 Patient Number [id number] Visit Number [id number] Date of 1960 Room Number Gender Female Number Age 56 year(s) Referring [facility] Medical Sales Associate Winsome GOLDENT, RDCS Physician MD Gerber Physician Interpreting Bobby Aviles A Collar Baster Jumpbasting Physician Supervising Ordering Bev Douglass MD, MD/P Physician Nurse Stress Chief Information Security Officer Conclusions Contractility Score Summary Hypokinesis of the Mid infero-septal, the Mid inferior and the Apical septal segments. Summary The estimated left ventricular ejection fraction is 40-45%. Mild concentric left ventricular hypertrophy. Diastolic function indeterminate due to patient's tachycardia. Procedure Type of Study TTE procedure:2D Echocardiogram, M-Mode, Doppler , Color Doppler. Procedure Date Date: 04/06/2017 Start: 03:11 PM Study Location: Echo Lab Technical Quality: Adequate visualization Indications:Tachycardia. Additional Indications:high risk medication Appropriate Use Criteria: 9 Patient Status: Routine HR: 103 bpm BP: 118/70 mmHg M-Mode/2D Measurements LV Diastolic Dimension: 2.48 cm LV Systolic Dimension: 2.46 cm LV Septum Diastolic: 0.8 cm LV PW Diastolic: 1.02 cm AO Root Dimension: 2.7 cm Cardiac Output: 3.11 l/min AV Cusp Separation: 1.2 cm RV Diastolic Dimension: 2.6 cm LA volume: 8 ml LVOT: 1.7 cm RV Base: 1.78 cm LVOT VTI: 13.3 cm RV Mid: 1.7 cm LV Stroke volume: 30.17 ml TAPSE: 2.02 cm TDI-S': 13.8 cm/s Doppler Measurements AV Peak Velocity: 0.56 m/s MV Peak E-Wave: 0.86 m/s AV Peak Gradient: 1.26 mmHg AV Mean Gradient: 1 mmHg LVOT Peak Velocity: 0.6 m/s PV Peak Velocity: 0.66 m/s TR Velocity:2.33 m/s PV Peak Gradient: 1.75 mmHg TR Gradient:21.72 mmHg Estimated PASP: 24.72 mmHg Estimated RAP:3 mmHg A' Septal Velocity: 0.09 m/s Estimated RVSP: 25 mmHg A' Lateral Velocity: 0.09 m/s E' Septal Velocity: 0.08 m/s E' Lateral Velocity: 0.09 m/s Findings Left Ventricle Mild concentric left ventricular hypertrophy. Diastolic function indeterminate due to patient's tachycardia. Right Ventricle Normal right ventricle structure and function. Left Atrium Normal left atrial size. Right Atrium Normal right atrial size. Mitral Valve Trivial mitral regurgitation by color Doppler. Aortic Valve Normal aortic valve structure and function. Tricuspid Valve Trivial tricuspid regurgitation by color Doppler. Pulmonic Valve Normal pulmonic valve structure and function. Pericardial Effusion No evidence of pericardial effusion. Pleural Effusion No evidence of pleural effusion. Contractility Score LV regional wall motion:(0-Non visualized 1-Normal 2-Hypokinesis 3-Akinesis 4-Dyskinesis 5-Aneurysm) Signature dtt: Honey Rosales dtd: 04/06/17 9178 Physician Self Edit
== END | disposition disaster alternative care site (69) ==
LOC: GCAR 14:48
DX: Z51.81 Encounter for therapeutic drug level monitoring (principal); I42.9 Cardiomyopathy, unspecified; D03.59 Melanoma in situ of other part of trunk; C78.1 Secondary malignant neoplasm of mediastinum; C78.00 Secondary malignant neoplasm of unspecified lung; C79.51 Secondary malignant neoplasm of bone; C78.7 Secondary malignant neoplasm of liver and intrahepatic bile duct; I51.7 Cardiomegaly; R91.8 Other nonspecific abnormal finding of lung field; R00.0 Tachycardia, unspecified; Z85.820 Personal history of malignant melanoma of skin; Z79.899 Other long term (current) drug therapy

== ENCOUNTER → 2017-04-09 | Outpatient (CLI) | payer OTHER ==
[2017-04-09 17:43] LABS: CPK 44 IU/L (21-215)
== END | disposition disaster alternative care site (69) ==
LOC: LNHI 17:08
PROVIDERS: Internal Medicine Cardiovascular Disease
DX: I42.8 Other cardiomyopathies (principal)

== ENCOUNTER 2017-04-11 17:30 | Observation (INO) | payer OTHER ==
[~2017-04-11] VITALS: Ht 160 cm; Wt 57.3 kg
--- NOTE | ~2017-04-11 | ER ---
PATIENT'S NAME: ILEANA JHAVERI [facility] AGE: 56 Y [address] ROOM: [place] [address] LOCATION: [facility] [place] ADMIT DATE: 04/11/2017 ER/Outpatient Report DISCHARGE DATE: FAMILY PHYSICIAN: ARTEM BELCHER MD ATTENDING PHYSICIAN: STEFFANY HARMON V Time of Patient Arrival: 1730 hours. Time of Patient Evaluation: 1730 hours. CHIEF COMPLAINT: Illness. HISTORY OF PRESENT ILLNESS: This is a 56-year-old female who presents to the ER with family who states that she has a history of metastatic melanoma. They state she had a recent hospitalization in January and the patient states that she has not been feeling well for the past 14 weeks. Today, she started having nausea and vomiting. She has had no diarrhea, but does have troubles with bowel movements and has not had one in the past week. Family states that they had contacted her primary care physician today and they told her that she should come to the emergency room. She states she did not want to until approximately an hour prior to arrival as she told them that she thought she better go in. They state she spiked a fever. She was unable the take anything for her fever because of the nausea. She also has a history of insulin dependent diabetes. They believe that she is taking her medications today for that. The patient denies any chest pain, no new shortness of breath. She states she has a chronic dry cough since July. She has weakness to her lower extremities. ALLERGIES: CODEINE AND PROTONIX. MEDICATIONS: Please see medication list in nurse's notes. PAST MEDICAL HISTORY: 1. Insulin-dependent diabetes. 2. Heart disease. 3. Melanoma with metastasis. 4. History of PE, is on Xarelto for that. 5. Recent history of DKA. SOCIAL HISTORY: Denies smoking, drug, or alcohol use. REVIEW OF SYSTEMS: PATIENT'S NAME: ILEANA JHAVERI [facility] AGE: 56 Y [address] ROOM: [place] [address] LOCATION: [facility] [place] ADMIT DATE: 04/11/2017 ER/Outpatient Report DISCHARGE DATE: FAMILY PHYSICIAN: ARTEM BELCHER MD ATTENDING PHYSICIAN: STEFFANY HARMON V All systems were reviewed and were negative with the exception of those discussed in the HPI. PHYSICAL EXAMINATION: VITAL SIGNS: Height 5 feet 3 inches stated, weight 57.3 kg taken, blood pressure is 128/63, pulse 124, respirations 18, temperature 101.6 degrees tympanically, and saturations 94% on room air. [place] Coma Score is 15. GENERAL: Alert, calm, well-developed female, in mild distress. She does appear not to feel well. HEENT: Head: Normocephalic. She does have tacky mucous membranes. Eyes: Pupils are equal and reactive to light. NECK: Supple. No lymphadenopathy. LUNGS: Diminished throughout but clear. HEART: Tachycardic. Normal rhythm. ABDOMEN: Soft. She has mild tenderness to palpation in the left lower quadrant. She has hypoactive bowel sounds. NEURO: Cranial nerves 2 through 12 grossly intact. Gait was not observed. SKIN: Warm to touch. No rash is noted. LABORATORY DATA: CBC: White count is 2.3, hemoglobin is 8.9, platelets 149, ANC is 1.2, band number is 0.6. INR is 1.27, sodium is 131, potassium 3.7, glucose is 148, anion gap is 12.7, BUN 7, creatinine is 0.4, alkaline phosphatase 126, AST 41, ALT is 16. Amylase 31, lipase 139. CPK is 36, CK-MB is less than 0.5. Troponin I is less than 0.040, proBNP is 86. Procalcitonin is 0.19. ABG venous draw; pH 7.41, bicarb is 22.2, lactate is 0.9. Urinalysis is negative for any infection. EKG shows sinus tachycardia. Chest x-ray was negative for any infiltrate. IMPRESSION: 1. Fever. 2. Pancytopenia. 3. Nausea and vomiting. 4. Constipation. 5. Melanoma with mets. 6. Insulin-dependent diabetic. ASSESSMENT AND PLAN: We did establish an IV here in the emergency room. We did give her 1700 mL of IV fluid and then ran at 150 mL/h. The patient did receive two doses of Zofran 4 mg IV here in the emergency room for her nausea. We also gave her a 1000 mg of Tylenol. I did discuss the patient care with Dr. Lange as well as Dr. Sanchez. I did call Dr. De Souza, who is on-call for Oncology as well. We did start cefepime 2 g IV here in the emergency room and also ordered vancomycin for pharmacy to dose. The patient's primary care physician is Dr. Belcher. PATIENT'S NAME: ILEANA JHAVERI [facility] AGE: 56 Y [address] ROOM: [place] [address] LOCATION: [facility] [place] ADMIT DATE: 04/11/2017 ER/Outpatient Report DISCHARGE DATE: FAMILY PHYSICIAN: ARTEM BELCHER MD ATTENDING PHYSICIAN: STEFFANY HARMON V Therefore, I called the Hospitalist Service and they will be admitting for observation. The patient and patient's family understand and agree with care. PRASHANT SÁNCHEZ PA-C FOR DO EARLINE SAMUELS/ricci /[id number] d: 04/12/17131 t: 04/16/17 2103, OUTPATIENT REPORT
--- NOTE | ~2017-04-11 | DS ---
PATIENT'S NAME: ILEANA JHAVERI [facility] AGE: 56 Y [address] ROOM: [place] [address] [place] [facility] [place] DATE: 04/11/2017 Discharge Summary DISCHARGE DATE: 04/12/2017 FAMILY PHYSICIAN: Owen Pathak MD ATTENDING PHYSICIAN: Rafa Del Rosario V PRIMARY DIAGNOSES: 1. Systemic inflammatory response syndrome. 2. Fever secondary to chemotherapy. 3. Pancytopenia. 4. Deep venous thrombosis with history of pulmonary embolism, on long-term anticoagulation with Xarelto. 5. Widely metastatic melanoma. 6. Diabetes mellitus type 2, insulin dependent. 7. Chronic systolic congestive heart failure. OPERATIONS OR PROCEDURES: None. HISTORY OF PRESENTING ILLNESS/REASON FOR ADMISSION: Please refer to the H and P dictated 04/11/2017, by Dr. Del Rsoario. HOSPITAL COURSE: The patient was admitted to hospital as noted above with a presumptive diagnosis of systemic inflammatory response syndrome. Presenting symptoms included fever and malaise. She was noted to be mildly neutropenic. She was placed in Observation. She received broad-spectrum antibiotic therapy with IV cefepime. Cultures had been obtained. She remained hemodynamically stable over the course of her hospital stay. Dr. Pablo, had been consulted. He felt that the fever was likely related to chemotherapy and there was no identified source of infection. Because of the development of chronic systolic congestive heart failure, there was discussion regarding reduction or discontinuation of her chemotherapy regimen. This would be deferred to Oncology. By the end of the second day of her hospital stay, it was felt she would be stable enough for discharge to home with plans for close clinical followup with Oncology as well as outpatient followup with Dermatology to establish care. Additionally, outpatient followup with Cardiology. DISCHARGE INSTRUCTIONS: Diet: ADA 1800-calorie per day as tolerated. Activity: As tolerated. Observe strict fall precautions. MEDICATIONS: PATIENT'S NAME: ILEANA JHAVERI [facility] AGE: 56 Y [address] ROOM: [place] [address] [place] [facility] [place] DATE: 04/11/2017 Discharge Summary DISCHARGE DATE: 04/12/2017 FAMILY PHYSICIAN: Owen Pathak MD ATTENDING PHYSICIAN: Rafa Del Rosario V 1. Alprazolam 0.25 mg p.o. at bedtime. 2. Aspirin 81 mg p.o. daily. 3. Calcium with vitamin D3 1000 units p.o. daily. 4. Colace 100 mg p.o. b.i.d. p.r.n. 5. Insulin NovoLog with meals per sliding scale. 6. Levemir insulin 10 units subcutaneous q.a.m. 7. Glucagon 1 mg subcu daily p.r.n. hypoglycemia. 8. Lidocaine patch apply topically daily p.r.n. 9. Metoprolol 25 mg half-tablet p.o. daily. 10. ProAmatine 2.5 mg p.o. b.i.d. 11. Nystatin 5 mL p.o. t.i.d. swish and swallow. 12. MiraLAX 17 g p.o. b.i.d. 13. Xarelto 15 mg p.o. b.i.d. through 04/23, then 20 mg daily. 14. Drisdol 50,000 units subcu every Sunday. 15. Dilaudid 2 mg p.o. q.4 hours p.r.n. pain. 16. Zofran 4 mg p.o. q.4 hours p.r.n. nausea. 17. Zantac 300 mg p.o. daily. 18. Flonase nasal spray 1 spray each nostril b.i.d. 19. Dextrose tabs daily p.r.n. hypoglycemia. 20. Albuterol HFA 2 puffs p.o. q.6 hours p.r.n. 21. Zyrtec 10 mg p.o. daily p.r.n. 22. Acetaminophen 1000 mg p.o. q.8 hours p.r.n. 23. Tums 1000 mg p.o. q.4 hours p.r.n. 24. Milk of magnesia 30 mL p.o. daily p.r.n. FOLLOWUP: She will follow up with Dr. De Souza, as previously scheduled. She will follow up with Dr. Rosales, in 1 week. She will follow up Dr. Pathak, in 1-2 weeks. She will schedule with Dr. Pop, Street Photographer in 1-2 months. CONDITION ON DISCHARGE: Fair. TOTAL TIME SPENT ON DISCHARGE PROCESS: 45 minutes. TATUM MD RAHEL ESPANA/ricci /[id number] d: 04/13/17 0251 t: 04/14/17 0833, DISCHARGE SUMMARY
--- NOTE | ~2017-04-11 | CON ---
PATIENT'S NAME: ILEANA JHAVERI [facility] AGE: 56 Y [address] ROOM: [address] [address] [place] [facility] [place]: 04/11/2017 Consultation DISCHARGE DATE: 04/12/2017 FAMILY PHYSICIAN: Owen Pathak MD ATTENDING PHYSICIAN: Rafa Del Rosario V DATE OF CONSULTATION: 04/12/2017 HISTORY OF PRESENT ILLNESS: Ileana Jhaveri is a 56-year-old woman with an uncharacterized fever, who is under treatment for disseminated melanoma. The patient's past medical history and history of the present illness with her disseminated melanoma is well-delineated in the [facility] office note dictated on 04/06/2017, which is appended to the chart under physician's report. This will not be repeated here. As noted in that consultation, the patient was doing better and better as time has progressed. Today, she is on day 36 of her first cycle of zoledronic acid, and is on day 35 of her dabrafenib and trametinib. Prior to the onset of this illness, she had a mild non-productive cough which had persisted, but was getting better. The patient experienced a fair amount of nausea related to early satiety, which she stated was "my fault." She would eat a regular meal and would not graze on her food as instructed. She acknowledges dietary indiscretions. The patient has been obstipated and had not had a bowel movement for 2-3 days prior to her admission, though she had a good one today following the administration of laxatives. The patient was doing quite well with hydromorphone 2 mg p.o. up to every four hours. The patient had been tapering her hydromorphone dose. On 04/06/2017, the patient experienced rigors for around fifteen minutes. She had a low-grade fever to 99 degrees. The patient did not notify anybody about this episode. The patient then felt fine until 04/11/2017. At that time, the patient was fatigued. She rested through the day, and got up to go to the bathroom at 5 p.m. The patient needed assistance to the bathroom, she was so fatigued. She swooned, and the next thing she knew, she was in the [facility] Emergency Room. Her highest fever was 103.7 degrees Fahrenheit (confirmed by the family), and the patient experienced rigors. The family had wondered if she would need an antibiotic because she had had subjective cold intolerance. The family made the point, and confirmed that her appetite was good and she was capable of self-care. However, the patient was not doing work, but concentrating on her physical therapy and occupational therapy. She would go outside at her home and take the handicapped ramp. The patient had occasional headaches every 48 hours. These were not intense, PATIENT'S NAME: ILEANA JHAVERI [facility] AGE: 56 Y [address] ROOM: [place] [address] [place] [facility] [place]: 04/11/2017 Consultation DISCHARGE DATE: 04/12/2017 FAMILY PHYSICIAN: Owen Pathak MD ATTENDING PHYSICIAN: Rafa Del Rosario V they were frontal. Otherwise, everything was copacetic. The patient was seen in the Emergency Room by Dr. Lange. In the Emergency Room, a urinalysis was unremarkable. The white count was 2300 with 28 segs and 24 bands, the hemoglobin was 8.9 g/dL, the MCV was 82, and the platelets were 149,000. The INR was 1.27 and the PTT was 30. The ABG revealed the pH was 7.41, the pO2 was 55, and the pCO2 was 35 on room air. The lactate was 0.9 mEq/L. The CMS was remarkable for an alkaline phosphatase of 226 international units/L and an albumin of 2.2 g/dL. The calcium was 6.7 g/dL. The eGFR was greater than 60 and the other liver function tests were unremarkable. A set of blood cultures were drawn and they are currently negative. A one-view chest x- ray was unremarkable. Dr. Lange arranged for the patient's admission to Dr. Del Rosario' Hospitalist Service. Dr. Del Rosario initiated cefepime and vancomycin, and continued the patient's outside medications. The patient is seen in consultation. MEDICATIONS UPON ADMISSION:: 1. APAP 500 mg p.o. q.8 h. 2. Albuterol two puffs inhaled every 6 hours. 3. Alprazolam 0.25 mg p.o. at bedtime. 4. ASA 81 mg p.o. q.24 h. 5. Calcium carbonate 1000 mg p.o. q.4 h. 6. Cetirizine 10 mg p.o. q.24 h. 7. Cholecalciferol 1000 units p.o. daily. 8. Dabrafenib 150 mg p.o. b.i.d. 9. Trametinib 2 mg p.o. q.24 h. 10. Cholecalciferol 50,000 units every seven days. 11. Rivaroxaban 15 mg p.o. b.i.d., then to be switched to 20 mg daily. 12. Ranitidine 300 mg p.o. daily. 13. Polyethylene glycol 17 g p.o. b.i.d. 14. Ondansetron 4 mg p.o. q.4 h. p.r.n. 15. Nystatin 100,000 units swish and swallow p.o. t.i.d. 16. Midodrine 2.5 mg p.o. b.i.d. 17. Metoprolol 12.5 mg p.o. q.24 h. 18. Magnesium hydroxide 30 mL p.r.n. constipation. 19. Lidoderm patch p.r.n. 20. Insulin detemir 10 units subq q.a.m. 21. Insulin aspartame 0-8 units subq at bedtime. 22. Hydromorphone 2 mg p.o. every four hours p.r.n. 23. Glucagon pen p.r.n. PATIENT'S NAME: ILEANA JHAVERI [facility] AGE: 56 Y [address] ROOM: [address] [address] [place] [facility] [place]: 04/11/2017 Consultation DISCHARGE DATE: 04/12/2017 FAMILY PHYSICIAN: Owen Pathak MD ATTENDING PHYSICIAN: Rafa Del Rosario V 24. Fluticasone propionate one spray b.i.d. 25. Docusate sodium 100 mg p.o. b.i.d. REVIEW OF SYMPTOMS: Negative other than those noted in the review of symptoms. PHYSICAL EXAMINATION: VITAL SIGNS: Pulse was 84 and regular, blood pressure was 110/65, respiratory rate was 20, temperature was 97.5, and SpO2 was 94% on room air. Height is 63 inches and weight is 57.3 kg (126 pounds). GENERAL: Well-developed, well-nourished, 56-year-old female, in no acute distress. HEENT: Unremarkable. LYMPHATICS: Lymph nodes, none palpable. NECK: Without JVD or carotid bruits. SKIN: Multiple junctional nevi, hays angiomas, acrochordons, and warts, as well as freckles. CHEST: Clear. CARDIOVASCULAR: Regular rhythm. No murmurs, bruits, or adventitious sounds. BREASTS: Not examined. ABDOMEN: Abdominal striae on the lower lateral abdomen. No masses, tenderness, or megaly. GENITALIA: Not examined. RECTAL: Not examined. EXTREMITIES: Pulses 2+ throughout without peripheral edema. NEUROLOGIC: Grossly intact. DIAGNOSTIC STUDIES: An echocardiogram was recently performed, and the ejection fraction was 45%, down from 60% prior to therapy. IMPRESSION: 1. Grade 2 pyrexia secondary to dabrafenib plus trametinib. This is a commonly recognized side-effect. The patient does have grade 1 neutropenia, but it is highly unlikely she has febrile neutropenia or an infection from a bacterial source. 2. The patient is getting better, and at this point, we need to involve a umbrella supervisor in her followup. She has seen Dr. Isbell in [place]. 3. Possible grade 1-grade 2 heart failure due to dabrafenib and trametinib. The patient has pre-existing diabetes mellitus. We may need to decrease or discontinue her trametinib. She may need to see a flat sheet maker and medications for congestive heart failure may need to be implemented. RECOMMENDATIONS: PATIENT'S NAME: ILEANA JHAVERI [facility] AGE: 56 Y [address] ROOM: [place] [address] [place] [facility] [place] DATE: 04/11/2017 Consultation DISCHARGE DATE: 04/12/2017 FAMILY PHYSICIAN: Owen Pathak MD ATTENDING PHYSICIAN: Rafa Del Rosario V DIAGNOSTIC 1. Cardiology consult. 2. Dermatology consult eventually as an outpatient. TREATMENT 1. Discontinue antibiotics. 2. If the patient's fever recurs, administer APAP 1 g p.o. every six hours plus a nonsteroidal between the doses. 3. Avoid proton pump inhibitors. 4. Reinstate the dabrafenib when her temperature normalizes. It will be reasonable to continue at the same dose. If the patient has continued problems, reductions to 100 a mg dose twice daily or even consideration of vemurafenib would be necessary. 5. If the patient truly has heart failure, reduction or cessation of the dose of trametinib would need to be contemplated. This would be bad for her melanoma because the combination is much more effective against the melanoma. PATIENT EDUCATION Made the point that we think she has a drug-related fever, and discussed the rationale for discontinuing her targeted therapy until we are sure her fever has resolved. SHELLY JUSTICE MD GKB/modl /[id number] CC: MD Ashley Argueta MD Bhavish Aubeelauck, MD d: 04/13/17 2133 t: 04/16/17 1005, CONSULTATION REPORT
--- NOTE | ~2017-04-11 | HP ---
[facility] AGE: 56 Y [address] ROOM: [address] [place] [address] LOCATION: [facility] [place] ADMIT DATE: 04/11/2017 History & Physical DISCHARGE DATE: FAMILY PHYSICIAN: ARTEM BELCHER MD ATTENDING PHYSICIAN: STEFFANY HARMON V DATE OF SERVICE: CHIEF COMPLAINT: Fever. HISTORY OF PRESENT ILLNESS: The patient is a 56-year-old female with a past medical history of recently diagnosed diffusely malignant melanoma with multiple complications. She is currently on double MEK inhibitor therapy. The patient has been doing relatively well at home until she developed sudden onset of fever up to 101.6 at home. She denies any chest pain, shortness of breath, nausea, vomiting, diarrhea, palpitations, or syncope. Her real only complaint was fever. In the ER, the patient was initially tachycardic but responded well to fluid bolus and was started on empiric antibiotics. She does admit to constipation for approximately 5 to 7 days now, and she is on very high doses of oral Dilaudid. REVIEW OF SYSTEMS: All systems have been reviewed with the patient and are negative aside from the pertinent positives mentioned above. PAST MEDICAL HISTORY: 1. Malignant melanoma with metastasis to multiple bone sites. 2. 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 3. Status post fixation of a pathological hip fracture. 4. Insulin-dependent diabetes. 5. Chronic pain with opioid dependency. 6. GERD. 7. History of a GI bleed due to presumed gastritis. CURRENT MEDICATIONS: 1. Acetaminophen. 2. Albuterol. 3. Xanax. 4. Aspirin. 5. Calcium carbonate. 6. Zyrtec. PATIENT'S NAME: ILEANA JHAVERI [facility] AGE: 56 Y [address] ROOM: [address] [address] LOCATION: [facility] [place] ADMIT DATE: 04/11/2017 History & Physical DISCHARGE DATE: FAMILY PHYSICIAN: ARTEM BELCHER MD ATTENDING PHYSICIAN: STEFFANY HARMON V 7. Cholecalciferol. 8. Dabrafenib. 9. Colace. 10. Flonase. 11. Glucagon. 12. Hydromorphone 2 p.o. every 4 hours as needed. 13. Insulin sliding scale. 14. Detemir 10 units every morning. 15. Magnesium hydroxide. 16. Metoprolol 12.5 daily. 17. Midodrine 2.5 mg p.o. b.i.d. 18. Zofran as needed. 19. MiraLAX. 20. Ranitidine. 21. Xarelto 15 p.o. b.i.d. 22. Trametinib. 23. Vitamin D. SOCIAL HISTORY: Negative for any ongoing toxic habits. FAMILY HISTORY: Reviewed and is noncontributory due to known underlying etiology for her presentation. PHYSICAL EXAMINATION: VITAL SIGNS: Blood pressure is 100/58, saturating 95% on room air, temperature 98.4, respirations are 16. GENERAL: Appears as a chronically ill, middle-aged female, in no acute distress. NEUROLOGIC: Nonfocal. EYES: Show pupils are equal and reactive to light. LYMPHATIC: Shows no cervical lymphadenopathy. ENDOCRINE: Shows no thyromegaly. LUNGS: Clear to auscultation in all haney. HEART: Rate is regular. No appreciable murmurs, gallops, or rubs. GI: Abdomen is soft, nontender, nondistended. Normoactive bowel sounds. : No costovertebral angle tenderness. VASCULAR: 2+ pedal pulses. MUSCULOSKELETAL: No muscle or joint abnormalities. SKIN: Pale, warm, and dry. PSYCHIATRIC: Reveals appropriate mood, cognition, and affect. LABORATORY DATA: Studies from the ER are a chest x-ray, which appears grossly unremarkable. PATIENT'S NAME: ILEANA JHAVERI [facility] AGE: 56 Y [address] ROOM: [address] [address] LOCATION: [facility] [place] ADMIT DATE: 04/11/2017 History & Physical DISCHARGE DATE: FAMILY PHYSICIAN: ARTEM BELCHER MD ATTENDING PHYSICIAN: STEFFANY HARMON V EKG, which demonstrates sinus tachycardia in 120s, and lab results, which show an unremarkable VBG. Sodium 131, bicarb 21, calcium 6.7 with an albumin of 2.2. Alkaline phosphatase is 226. Negative cardiac enzymes, and a CBC, which shows white count of 2.3, hemoglobin 8.9, platelets of 149, bands are 24%. Urinalysis is unremarkable. ASSESSMENT AND PLAN: 1. This is a 56-year-old female, who meets criteria for systemic inflammatory response syndrome but not for sepsis. She will be admitted for observation. We will continue her on broad-spectrum antibiotics until we have blood cultures return. We will provide her with symptomatic support for her fevers if they recur. We will monitor her hemodynamic status. 2. Malignant melanoma, on chemotherapy. We will request inpatient oncology consultation. She may need to have her chemotherapy adjusted. 3. Pancytopenia. This is likely related to her malignant melanoma and chemotherapy. We will monitor her counts. 4. Long-term use of anticoagulants due to known deep venous thrombosis/pulmonary embolism. We will continue the patient on her Xarelto. 5. Severe constipation due to opioids. We will provide the patient with magnesium citrate and suppositories if magnesium citrate does not work. 6. Low albumin. This is likely due to severe protein-calorie malnutrition, and we will check her prealbumin and consider nutritional supplementation. 7. Chronic pain with opioid dependency. I will continue her on Dilaudid given her multiple sites of melanoma metastasis. 8. Deep venous thrombosis prophylaxis will be nonpharmacologic as the patient is already fully anticoagulated. 9. Insulin-dependent diabetes. The patient will be continued on her Levemir and sliding scale. Additional management will depend on clinical course. Time dedicated to this patient's encounter is 35 minutes. MD RAKEL SCHWAB/ricci /[id number] D: [id number] T: [id number] HISTORY & PHYSICAL
[~2017-04-11 17:30] MED LIST changes: -NYSTATIN100000 UNI PO; -XARELTO15 MG PO
[2017-04-11 18:39] LABS: BICARBONATE 22.2 mmol/L (18.0-23.0); LACTATE 0.9 mEq/L (0.50-1.60); PCO2 35 mmHg (35-45); PO2 55 mmHg (80-90)
[2017-04-11 18:41] LABS: HEMATOCRIT 27.3 % (33.0-46.0); HEMOGLOBIN 8.9 g/dL (10.0-15.0); MCH 26.7 pg (27.0-34.0); MCHC 32.6 gm/dL (32.0-36.5); MPV 9.7 fl (9.4-12.4); RBC 3.33 M/uL (3.50-5.50); RDW-CV 17.8 % (11.9-14.6); WBC 2.3 K/uL (4.0-11.0)
[2017-04-11 18:42] LABS: PLATELET COUNT 149 K/uL (150-450)
[2017-04-11 18:49] LABS: INR - (THERAPEUTIC) 1.27 (0.92-1.07); PROTIME 13.4 SECONDS (9.8-11.4); PTT 30 SECONDS (25-32)
[2017-04-11 19:01] LABS: ALBUMIN 2.2 gm/dL (3.5-5.0); ALK PHOS 226 IU/L (33-138); ALT 16 IU/L (12-78); ANION GAP 12.7 (10.0-19.0); AST 41 IU/L (10-40); BLOOD UREA NITROGEN 7 mg/dL (6-24); CHLORIDE 101 mMol/L (96-110); CO2 21 mMol/L (22-32); CPK 36 IU/L (21-215); CREATININE 0.4 mg/dL (0.5-1.1); ESTIMATED GFR (MDRD EQUATION) > 60; POTASSIUM 3.7 mMol/L (3.7-5.1); SODIUM 131 mMol/L (135-145); TOTAL PROTEIN 6.4 g/dL (6.0-8.4)
[2017-04-11 19:04] LABS: CALCIUM 6.7 mg/dL (8.5-10.5); TOTAL BILIRUBIN 0.4 mg/dL (0.0-1.5)
[2017-04-11 19:07] LABS: ABSOLUTE NEUTROPHIL CT (ANC) 1.2 K/uL (1.8-7.8); BANDED NEUTROPHIL # 0.6 K/uL (0.0-0.1); BANDED NEUTROPHILS % 24 %; LYMPHOCYTE # 0.8 K/uL (0.8-4.0); MONOCYTE # 0.3 K/uL (0.0-1.0)
[2017-04-11 19:08] LABS: LYMPHOCYTE % 35 %; SEGMENTED NEUTROPHIL # 0.6 K/uL (1.8-7.8); SEGMENTED NEUTROPHIL % 28 %
[2017-04-11 19:16] LABS: BILIRUBIN URINE NEGATIVE (NEGATIVE); BLOOD URINE 10 /UL (NEGATIVE); COLOR URINE YELLOW (YELLOW); GLUCOSE URINE NEGATIVE (NEGATIVE); KETONE URINE NEGATIVE (NEGATIVE); LEUKOCYTES URINE NEGATIVE /UL (NEGATIVE); NITRITE URINE NEGATIVE (NEGATIVE); PROTEIN URINE 15 mg/dL (NEGATIVE); TURBIDITY URINE CLEAR (CLEAR); UROBILINOGEN URINE NORMAL (NORMAL)
[2017-04-11 19:23] LABS: AMORPHOUS URINE 2+ (NEGATIVE); BACTERIA URINE RARE (NEGATIVE); EPITHELIAL URINE 0-2 #/HPF (NEGATIVE); RBC URINE 0-2 #/HPF (NEGATIVE); WBC URINE 0-2 #/HPF (NEGATIVE)
[2017-04-11] MEDS ORDERED: LOPRESSOR25 MG PO (21:28)
[2017-04-11] MEDS ORDERED: XARELTO15 MG PO (21:33)
[2017-04-11] MEDS ORDERED: NYSTATIN100000 UNI PO (21:42)
--- NOTE | 2017-04-12 03:47 | NUR ---
Significant Event: Pt admitted around 2214. Hx recently diagnosed Metastatic malignant Melenoma. Insulin dependant Diabetes, Gerd, DVT. Allergy to codeine and protonix. Came to the hospital today because she developed sudden onset fever, chills and nausea. Reported temp at home was 103.0. While in ER they initial dosed Cefapime and Vancomycin. Follow up:
--- NOTE | 2017-04-12 04:01 | NUR ---
Significant Event: Pt alert and oriented. Up with SBA and Walker, which pt uses at home. VSS, Afebrile since arrival to floor. Currently taking oral chemo daily, on HAZ drug precautions. Pts own chemo meds are in box and refridgerator. 20 g IV to left posterior forearm with good blood return. C/o constipation and 1/2 bottle mag citrate ordered, results after just a few sips. Follow up: Cont IV antibiotics. Watch labs and temp.
[2017-04-12 07:25] LABS: BLOOD UREA NITROGEN 6 mg/dL (6-24); CHLORIDE 111 mMol/L (96-110); CREATININE 0.3 mg/dL (0.5-1.1); ESTIMATED GFR (MDRD EQUATION) > 60; SODIUM 137 mMol/L (135-145)
[2017-04-12 07:26] LABS: ANION GAP 14.8 (10.0-19.0); CALCIUM 7.2 mg/dL (8.5-10.5); CO2 16 mMol/L (22-32)
[2017-04-12 07:27] LABS: POTASSIUM 4.8 mMol/L (3.7-5.1)
[2017-04-12 08:13] LABS: BASOPHIL % 0.4 %; HEMOGLOBIN 11.1 g/dL (10.0-15.0); IMMATURE GRANULOCYTE % 0.9 %; LYMPHOCYTE # 0.5 K/uL (0.8-4.0); LYMPHOCYTE % 22.4 %; MCH 27.1 pg (27.0-34.0); MCHC 32.7 gm/dL (32.0-36.5); MCV 82.7 fl (83.0-98.0); MONOCYTE # 0.1 K/uL (0.0-1.0); MONOCYTE % 6.3 %; MPV 9.6 fl (9.4-12.4); NEUTROPHIL # (ANC) 1.6 K/uL (1.8-7.8); NRBC % 0 /100WBC (0-0.00); PLATELET COUNT 161 K/uL (150-450); WBC 2.2 K/uL (4.0-11.0)
[2017-04-12 08:14] LABS: HEMATOCRIT 33.9 % (33.0-46.0)
--- NOTE | 2017-04-12 17:19 | NUR ---
Significant event: Patient is alert and oriented. VSS on room air. IV to left hand removed with no complications. Pt blood sugar was checked at 1600 due to patient being very sleepy. It was 39, rechecked and was 40. Gave 1ml of glucogan, rechecked after 15 minutes and was 70. This was all reported to Dr Rangel with no new orders. Pt encouraged to drink some juice and 7-up. Pt was more awake at this time. Pt education given to her and her tuubz-al-gyo. Prescriptions, copies of dismissal instructions with appt times, and education given to patient. Pt and dghtr-in law verbalized understanding. Pt was dressed and ready for dismissial. Blood sugar was rechecked and was 142. Pt had no complaints of dizziness, nausea, shaking, or drowsiness at this time. Pt vitals were taken and were in normal limits. Wheeled to front north door by SANJUANA.
--- NOTE | 2017-04-20 13:43 | NUR ---
Post hospitalization follow up call made to patient. Family informed me that patient on April 11, 2017.
--- NOTE | 2017-04-20 13:55 | NUR ---
Note that the above charting under Nurse Navigator states pateint . Note was placed in wrong chart. Patient has not .
--- NOTE | 2017-04-20 14:42 | NUR ---
Post hospitalization follow up call made to patient. She has no questions about her follow up appointments or medication. Feels pain is in control and feels her blood sugars are also in control Feels her hospitalization went well.
== END 2017-04-12 17:15 | disposition disaster alternative care site (69) ==
LOC: GMED 17:30 → GMSU 20:16
PROVIDERS: Emergency Medicine; ADMIT Internal Medicine
DX: R65.10 Systemic inflammatory response syndrome (SIRS) of non-infectious origin without acute organ dysfunction (principal); R50.9 Fever, unspecified; D61.818 Other pancytopenia; E11.9 Type 2 diabetes mellitus without complications; I50.22 Chronic systolic (congestive) heart failure; G89.29 Other chronic pain; F11.20 Opioid dependence, uncomplicated; K21.9 Gastro-esophageal reflux disease without esophagitis; C43.9 Malignant melanoma of skin, unspecified; C79.51 Secondary malignant neoplasm of bone; Z86.718 Personal history of other venous thrombosis and embolism; Z79.82 Long term (current) use of aspirin; Z86.711 Personal history of pulmonary embolism; Z79.4 Long term (current) use of insulin; Z79.899 Other long term (current) drug therapy; Z79.01 Long term (current) use of anticoagulants; Z79.891 Long term (current) use of opiate analgesic
CPT/HCPCS: G0378; J0692; J1610; J2405; J3370; J7030; J7040; J7050

== ENCOUNTER → 2017-04-18 | Outpatient (CLI) | payer OTHER ==
[~2017-04-18] MED LIST changes: +NYSTATIN100000 UNI PO; +XARELTO15 MG PO
--- NOTE | ~2017-04-18 | ESTC ---
Cardiac Perfusion Imaging Demographics Patient Name EMILIO Saunders Gender Female Patient Number [id number] Race Visit Number [id number] Ethnicity Corporate ID Room Number Accession Number [id number] Height 63 inches Date of 1960 Weight 120 pounds Interpreting Alex Taylor Date of study 04/18/2017 Physician Supervising /RALF ROSE Technologist Pam Fernandes Ordering Physician Bobby Sotelo A spring manufacturing set up technician Stress ECG Reading Bobby Aviles Nurse Max Perez Physician A RN Alex Yost RN Medications Reviewed with Patient prior to Procedure. Procedure Admit Source:Other. Procedure Type: Nuclear Stress Test:Pharmacological, Lexiscan, Cardiolite Stress Test Procedure Start time: 04/18/2017 08:20 Indications: Cardiomyopathy. Risk Factors The patient risk factors include:former tobacco use, family history of premature CAD and insulin treated diabetes mellitus. Conclusions Summary Perfusion Images: The overall quality of the study is fair, due to soft tissue attenuation. Left ventricular cavity is noted to be small. There is no evidence of abnormal lung activity. The right ventricle is not visualized and cannot be assessed. Stress SPECT images and Rest SPECT images demonstrate homogenous tracer distribution throughout the myocardium except for a mild to moderate decrease in tracer uptake in the area involving the inferior wall on stress images and moderate to severe decrease in tracer uptake in the inferior wall on rest images with preserved wall motion suggesting artifact/ soft tissue attenuation. Gated SPECT imaging reveals hyperdynamic left ventricle. The left ventricular ejection fraction was calculated to be 82%. Impression ECG portion of stress test is clinically negative for ischemia by diagnostic criteria. Myocardial perfusion imaging is mildly abnormal; however, no significant reversible perfusion defects were seen to suggest ischemia.. The inferior wall matched defect worse on rest images with preserved wall motion is consistent with soft tissue attenuation. Gated SPECT imaging reveals hyperdynamic left ventricle. The left ventricular ejection fraction was calculated to be 82%. Stress Protocols Resting ECG Sinus tachycardia. Pre-stress physical exam: Patient assessed by Mandeep prior to testing. Predicted HR: 162 bpm ECG Findings Sinus tachycardia. Arrhythmias No rhythm abnormality. Symptoms Shortness of breath. Nausea. Stress Interpretation Appropriate hemodynamic response to Lexiscan. No significant ST-T wave changes with Lexiscan. ECG portion is negative for ischemia by diagnostic criteria. Imaging Results Applied corrections - Motion correction applied High risk findings Summed scores - Summed stress score: 24 - Summed rest score: 20 - Summed difference score: 4 Stress ejection Ejection fraction:81 % EDV :37 ml ESV :7 ml Stroke volume :30 ml LV mass :81 gr Imaging Protocols Rest Stress Isotope:Tc99m Sestamibi IV Isotope: Tc99m Sestamibi IV Isotope dose:10.6 mCi Isotope dose:31.4 mCi Date:04/18/2017 07:23 Date:04/18/2017 09:14 Technique: SPECT Technique: Gated Supine SPECT Supine Scan Time:45-60 minutes post Scan Time:45-60 minutes post injection injection Procedure Medications - Regadenoson (Lexiscan) 0.4 mg IV over 10-15 sec. I.V. 0.4 mg. - Zofran I.V. 4 mg. - Metaprolol I.V. 5 mg. Medications administered per verbal order and read back to physician prior to administration. Medical History Admission Data Admission date: 04/18/2017 Admission Time: 06:58 Hospital Status: Outpatient. Signatures dtt: NELI KELLEY dtd: 04/18/17 0820 Physician Self Edit
== END | disposition disaster alternative care site (69) ==
LOC: GRAD 04-12 07:45
DX: I42.9 Cardiomyopathy, unspecified (principal); E11.9 Type 2 diabetes mellitus without complications; Z87.891 Personal history of nicotine dependence; Z82.49 Family history of ischemic heart disease and other diseases of the circulatory system
CPT/HCPCS: A9500; J2405; J2785

== ENCOUNTER → 2017-06-13 | Outpatient (CLI) | payer OTHER | END | disposition disaster alternative care site (69) | LOC: GRAD 06-07 10:00 | DX: D03.59 Melanoma in situ of other part of trunk (principal); C78.1 Secondary malignant neoplasm of mediastinum; C79.51 Secondary malignant neoplasm of bone; C78.00 Secondary malignant neoplasm of unspecified lung; C78.7 Secondary malignant neoplasm of liver and intrahepatic bile duct; I50.20 Unspecified systolic (congestive) heart failure; R91.8 Other nonspecific abnormal finding of lung field; R50.2 Drug induced fever; Z85.820 Personal history of malignant melanoma of skin | CPT/HCPCS: A9503; Q9967 ==